=== PATIENT | female | born 1980 | race Caucasian/White ===

== ENCOUNTER 2017-01-08 17:23 | Emergency (ER) | payer OTHER ==
[~2017-01-08] VITALS: Ht 149.9 cm; Wt 92.1 kg
[~2017-01-08 17:23] MED LIST: OMEP40CA PO
[2017-01-08 17:26] VITALS: TEMP 37; Ht 149.9 cm; Wt 92.1 kg
[2017-01-08 17:31] VITALS: O2SAT 95
[2017-01-08 18:00] LABS: BASO % 0.3 %; BASO ABS # 0.03 K/uL (0-0.2); COMPLETE YES; EOS % 0.9 %; IG% 0.3 %; LYMPH % 42.3 %; LYMPH ABS # 4.83 K/uL (1.2-3.4); MEAN CELL VOLUME 90.4 fL (80-100); MEAN CORPUSCULAR HEMOGLOBIN 30.2 pg (25-34); MEAN CORPUSCULAR HGB CONC 33.4 g/dl (32-36); MEAN PLATELET VOLUME 9.5 fL (7.4-10.4); MONO % 7.3 %; NEUT % 48.9 %; PLATELET COUNT 319 K/uL (130-400); WHITE BLOOD COUNT 11.43 K/uL (4.8-10.8)
[2017-01-08 18:03] LABS: CALCIUM 9.3 mg/dl (8.5-10.1)
[2017-01-08 18:07] LABS: BUN/CREATININE RATIO 11.6 (10-20); CREATININE 0.83 mg/dl (0.60-1.20); POTASSIUM 3.5 mmol/L (3.5-5.1)
--- NOTE | 2017-01-08 18:18 | DIAGNOSTIC IMAGING REPORT ---
TWO VIEW CHEST CLINICAL HISTORY: Atypical chest pain.. FINDINGS: PA and lateral chest radiographs are compared to chest x-ray and chest CT dated 09/10/2013. The cardiomediastinal silhouette is unremarkable. There is mild chronic elevation of the right hemidiaphragm. The lungs and pleural spaces are clear. There is no pneumothorax. The bony thorax appears intact. Surgical clips are noted in the upper abdomen on the lateral view. IMPRESSION: No active disease in the chest. Electronically signed by: Mumtaz Whitmore M.D. 01/08/2017 6:17 PM Dictated Date/Time: 01/08/2017 6:16 PM
--- NOTE | 2017-01-08 18:42 | EMERGENCY ROOM VISIT NOTE ---
History First contact with patient: 17:36 Chief Complaint: CHEST PAIN Stated Complaint: CHEST PAIN,NUMBNESS IN ARM,HEAD PRESSURE Nursing Triage Summary: Pt states pain in substernal chest and into right arm. Lightheaded. Flushed. "Hearing is fading in and out. I felt like I was getting electrocuted." Denies sob. Abnormal EKG when had the flu. Pt reports open wound to left breast. History of Present Illness The patient is a 37 year old female who presents to the Emergency Room with complaints of chest pressure. She states that she has had substernal chest pressure since 12pm this afternoon, it is intermittent and over the last 6 hours has had 4 episodes lasting approximately 1 minute. She also has had a headache with head pressure for the last 2 days. She also has had a chronic shooting pain like being electrocuted over her right shoulder that has been going on for the last 4 months. She is also having nausea and lightheadedness since the chest pressure began. She denies any fever, chills, nausea or vomiting. She is currently a 1 PPD smoker. Review of Systems See HPI for pertinent positives and negatives. A total of ten systems were reviewed and were otherwise negative. Past Medical/Surgical History Medical Problems: (1) Bronchitis (2) Gestational diabetes (3) History of orthopedic surgery (4) History of UTI (5) HTN (hypertension) (6) PCOS (polycystic ovarian syndrome) (7) Pneumonia (8) [place] Teeth Removal Family History Cancer Diabetes Gallbladder disease Heart disease Kidney disease/stones Lung disease Social History Smoking Status: Current Every Day Smoker Drug Use: none Marital Status: single Occupation Status: employed Current/Historical Medications No Active Prescriptions or Reported Meds Allergies Coded Allergies: No Known Allergies (Verified , `, 01/08/17) Physical Exam Vital Signs Date Time Temp Pulse Resp B/P Pulse Ox O2 Delivery O2 Flow Rate FiO2 01/08/17 18:17 101 18 123/77 95 Room Air 01/08/17 17:41 106 01/08/17 17:31 95 Room Air 01/08/17 17:26 37.0 108 20 147/78 97 Room Air Physical Exam GENERAL: Awake, alert, well-appearing, in mild distress HENT: Normocephalic, atraumatic. Oropharynx unremarkable. EYES: Normal conjunctiva. Sclera non-icteric. NECK: Supple. No nuchal rigidity. RESPIRATORY: Clear to auscultation. Good inspiratory effort CARDIAC: Regular rate, normal rhythm. Extremities warm and well perfused. Pulses equal. ABDOMEN: Soft, non-distended. No tenderness to palpation. No rebound or guarding. No masses. RECTAL: Deferred. BREAST: Left breast has ulceration over left lower quadrant MUSCULOSKELETAL: Chest examination reveals no tenderness. The back is symmetrical on inspection without obvious abnormality. There is no CVA tenderness to palpation. No joint edema. LOWER EXTREMITIES: Calves are equal size bilaterally and non-tender. No edema. No discoloration. NEURO: Normal sensorium. No sensory or motor deficits noted. SKIN: No rash or jaundice noted. Medical Decision & Procedures Laboratory Results 01/08/17 17:35 Red Blood Count 5.20, Mean Corpuscular Volume 90.4, Mean Corpuscular Hemoglobin 30.2, Mean Corpuscular Hemoglobin Concent 33.4, Mean Platelet Volume 9.5, Neutrophils (%) (Auto) 48.9, Lymphocytes (%) (Auto) 42.3, Monocytes (%) (Auto) 7.3, Eosinophils (%) (Auto) 0.9, Basophils (%) (Auto) 0.3, Neutrophils # (Auto) 5.61, Lymphocytes # (Auto) 4.83, Monocytes # (Auto) 0.83, Eosinophils # (Auto) 0.10, Basophils # (Auto) 0.03 01/08/17 17:35 Test 01/08/17 17:35 01/08/17 17:57 White Blood Count 11.43 K/uL (4.8-10.8) Red Blood Count 5.20 M/uL (4.2-5.4) Hemoglobin 15.7 g/dL (12.0-16.0) Hematocrit 47.0 % (37-47) Mean Corpuscular Volume 90.4 fL (80-100) Mean Corpuscular Hemoglobin 30.2 pg (25-34) Mean Corpuscular Hemoglobin Concent 33.4 g/dl (32-36) Platelet Count 319 K/uL (130-400) Mean Platelet Volume 9.5 fL (7.4-10.4) Neutrophils (%) (Auto) 48.9 % Lymphocytes (%) (Auto) 42.3 % Monocytes (%) (Auto) 7.3 % Eosinophils (%) (Auto) 0.9 % Basophils (%) (Auto) 0.3 % Neutrophils # (Auto) 5.61 K/uL (1.4-6.5) Lymphocytes # (Auto) 4.83 K/uL (1.2-3.4) Monocytes # (Auto) 0.83 K/uL (0.11-0.59) Eosinophils # (Auto) 0.10 K/uL (0-0.5) Basophils # (Auto) 0.03 K/uL (0-0.2) RDW Standard Deviation 43.6 fL (36.4-46.3) RDW Coefficient of Variation 13.2 % (11.5-14.5) Immature Granulocyte % (Auto) 0.3 % Immature Granulocyte # (Auto) 0.03 K/uL (0.00-0.02) Anion Gap 7.0 mmol/L (3-11) Est Creatinine Clear Calc Drug Dose 92.0 ml/min Estimated GFR () 104.4 Estimated GFR (Non- 90.1 BUN/Creatinine Ratio 11.6 (10-20) Calcium Level 9.3 mg/dl (8.5-10.1) Total Bilirubin 0.2 mg/dl (0.2-1) Aspartate Amino Transf (AST/SGOT) 20 U/L (15-37) Alanine Aminotransferase (ALT/SGPT) 37 U/L (12-78) Alkaline Phosphatase 76 U/L (45-117) Total Protein 7.7 gm/dl (6.4-8.2) Albumin 3.9 gm/dl (3.4-5.0) Globulin 3.8 gm/dl (2.5-4.0) Albumin/Globulin Ratio 1.0 (0.9-2) Lipase 165 U/L (73-393) Bedside D-Dimer > 450 ng/mlFEU (0-450) Bedside Troponin I 0.000 ng/ml (0-0.045) Medical Decision Etiologies such as cardiac ischemia, aortic dissection, pulmonary embolism, pneumonia, pneumothorax, musculoskeletal, infections, gastrointestinal, as well as others were entertained. Initially ordered EKG, Chest Xray, CBC, CMP, Lipase, Troponin, D-Dimer - D-Dimer came back elevated to patient sent for CTA of the Chest looking for PE ' - Patient states that she does have a family history of clots and both of her parents are on blood thinners - CTA for PE was negative - Patient states that pain is resolved and would like to go home - Discussed possible etiologies of her pain and for her to return to the ED if her pain gets worse or any other concerning symptoms arise Impression Primary Impression: Non-cardiac chest pain Departure Information Dispostion Home / Self-Care Condition GOOD Prescriptions No Active Prescriptions or Reported Meds Referrals No Doctor, Assigned (PCP) Patient Instructions My [facility]
[2017-01-08] MEDS ORDERED: OPTIRAY 320 IV PRN (19:15)
--- NOTE | 2017-01-08 19:17 | DIAGNOSTIC IMAGING REPORT ---
CT ANGIOGRAM OF THE CHEST CLINICAL HISTORY: Atypical chest pain. COMPARISON STUDY: Chest x-ray dated 01/08/2017. Chest CT dated 09/10/2013. TECHNIQUE: Following the IV administration of 94 cc of Optiray 320, CT angiogram of the chest was performed from the upper abdomen to the thoracic inlet utilizing the pulmonary embolus protocol. Images are reviewed in the axial, sagittal, and coronal planes. 3-D MIPS images are created and assessed. IV contrast was administered without complication. CT DOSE: 578.45 mGy.cm FINDINGS: Thyroid: Imaged portions of the thyroid gland are normal in size and attenuation. Thoracic aorta: The thoracic aorta is normal in caliber and demonstrates standard 3-vessel arch anatomy. No dissection is seen. Pulmonary vasculature: The pulmonary trunk is normal in caliber. There are no filling defects identified in main, lobar, or segmental pulmonary branches to suggest pulmonary embolus. Heart: The heart is normal in size and configuration, and without pericardial effusion. Lungs and pleural spaces: Evaluation of the lung parenchyma is degraded by respiratory motion artifact. There is no airspace consolidation or pleural effusion. Dependent atelectasis is observed. A 5 mm pulmonary nodule at the left lung base seen on image #52 is unchanged from 2014 and of doubtful significance. The trachea and central airways are clear. Mediastinum: There is no mediastinal lymphadenopathy. Emelina: Clear. Axillae: There is no axillary lymphadenopathy. Upper abdomen: There is evidence of hepatic steatosis. Cholecystectomy clips are noted. There is a small hiatal hernia. Skeletal structures: No lytic or blastic bony lesions are seen. IMPRESSION: 1. There is no evidence of pulmonary embolus in the main, lobar, or segmental pulmonary arteries. 2. There is no airspace consolidation or pleural effusion. 3. Hepatic steatosis. Electronically signed by: Mumtaz Whitmore M.D. 01/08/2017 7:15 PM Dictated Date/Time: 01/08/2017 7:11 PM
--- NOTE | 2017-01-08 20:15 | EMERGENCY ROOM VISIT NOTE ---
ED Visit Note First contact with patient: 17:29 Patient seen and examined at bedside after the resident. Discussed all labs and imaging which were reassuring. Patient stated this pain was improved. Patient states she has had episodes similar to this in the past. Discussed possible etiology and close follow-up with family doctor. Discussed the symptoms persist may need additional radiology evaluation also. Patient well- appearing here with stable vital signs and no apparent distress. Patient comfortable with plan for discharge. Discussed symptoms to watch and return for , she verbalized understanding.
[2017-01-08 20:20] VITALS: BP 116/70; PULSE 90; O2SAT 95
[2017-04-02] MEDS ORDERED: VARE1PAK15 PO (15:34)
[2017-04-02] MEDS ORDERED: DULO-24 PO (15:34)
[2017-04-02] MEDS ORDERED: MELO7.5T5 PO (15:34)
[2017-04-02] MEDS ORDERED: LEVOIUD (15:38)
[2017-07-03] MEDS ORDERED: VNTHFA/IN INH (16:30)
[2017-07-03] MEDS ORDERED: METH4PAK PO (16:30)
[2017-07-05] MEDS ORDERED: PRED-301 PO ×2 (12:02)
[2017-07-05] MEDS ORDERED: PRED20TA PO (13:39)
[2017-07-05] MEDS ORDERED: LEVO-366 PO (13:39)
== END 2017-01-08 20:23 | disposition home or self-care (01) ==
LOC: C.EDB 17:24 → C.EDA 20:23
DX: R07.89 Other chest pain (principal); R51 Headache; I10 Essential (primary) hypertension; Z87.01 Personal history of pneumonia (recurrent); Z87.09 Personal history of other diseases of the respiratory system; Z87.42 Personal history of other diseases of the female genital tract; Z87.440 Personal history of urinary (tract) infections; Z82.49 Family history of ischemic heart disease and other diseases of the circulatory system; Z83.3 Family history of diabetes mellitus; Z83.6 Family history of other diseases of the respiratory system; Z83.79 Family history of other diseases of the digestive system; Z84.1 Family history of disorders of kidney and ureter; F17.200 Nicotine dependence, unspecified, uncomplicated

== ENCOUNTER → 2017-01-31 | Outpatient (CLI) | payer OTHER ==
[~2017-01-31] MED LIST changes: +DULO-24 PO; +LEVO-366 PO; +LEVOIUD; +MELO7.5T5 PO; +METH4PAK PO; -OMEP40CA PO; +PRED-301 PO; +PRED20TA PO; +VARE1PAK15 PO; +VNTHFA/IN INH
--- NOTE | 2017-01-31 14:09 | DIAGNOSTIC IMAGING REPORT ---
RIGHT WRIST MIN 3 VIEWS ROUTINE CLINICAL HISTORY: Right wrist pain. COMPARISON: None. DISCUSSION: No acute fractures or dislocations are visualized. There is a tiny bony/calcific density adjacent the radial styloid. This is felt to be old. There are no erosive or destructive changes. IMPRESSION: 1. No acute fractures 2. No erosive or destructive changes. Electronically signed by: Daquan Burden M.D. 01/31/2017 2:08 PM Dictated Date/Time: 01/31/2017 2:07 PM
== END | disposition home or self-care (01) ==
LOC: C.RDSM 13:15
PROVIDERS: ATTEND Physician Assistant
DX: M25.531 Pain in right wrist (principal)

== ENCOUNTER → 2017-04-17 | Day surgery (SDC) | payer OTHER ==
[2017-04-02 15:35] VITALS: Ht 149.9 cm; Wt 86.4 kg
[~2017-04-17] VITALS: Ht 149.9 cm; Wt 86.4 kg
[~2017-04-17] MED LIST changes: +ATROPINE SULFATE 0.1 MG/ML 5ML SYR IV PRN; +BUPIVACAINE 0.5 % 5 MG/1 ML PF 10ML VIAL ONE; +CEFAZOLIN 2000 MG/60 ML D5W IV SCH; +EpHEDrine SULFATE INJ 50 MG/ML AMP IV PRN; +FENTANYL CITRATE INJ 50 MCG/1 ML 2 ML VIAL ONE; +LACTATED RINGER'S 1000ML 1,000 ML IV SCH; -LEVO-366 PO; +LIDOCAINE HCL 2% 2 ML VIAL (20MG/ML) ONE; +LIDOCAINE HCL 2% LOCAL 20 ML VIAL ONE; -METH4PAK PO; +MIDAZOLAM HCL 1 MG/ML 2ML VIAL ONE; +ONDANSETRON INJ 2 MG/ML 2 ML VIAL IV PRN; -PRED-301 PO; -PRED20TA PO; +PROPOFOL IV EMULSION 10 MG/ML 20 ML VIAL IV ONE; +SODIUM CHLORIDE 0.9% 1000ML 1,000 ML IV SCH; -VNTHFA/IN INH
--- NOTE | 2017-04-17 06:36 | History & Physical Bridge Note ---
H&P Re-Evaluation Bridge Note: I have examined the patient, reviewed the History & Physical and in the interval since the performance of the History & Physical I have noted the following changes of clinical significance: consent obtained.No changes noted
--- NOTE | 2017-04-17 06:38 | Discharge Instructions ---
Discharge Instructions Date of Service Apr 17, 2017. Visit Reason for Visit: Right Carpal Tunnel Syndrome Discharge Discharge Diagnosis / Problem: same Discharge Goals Goal(s): Decrease discomfort, Improve function Medications Stopped Medications Name(s): na Restart Stopped Medication(s): use all scripts as directed Activity Recommendations Activity Limitations: as noted below Lifting Limitations: until after follow-up appointment Exercise/Sports Limitations: until after follow-up appointment May Resume Sexual Activity: when tolerated Shower/Bathe: keep incision dry Driving or Machine Use: resume 1 day after discharge Anesthesia . Post Anesthesia Instructions: If you have had General Anesthesia or IV Sedation: * Do not drive today. * Resume driving when surgeon permits. * Do not make important decisions or sign legal documents today. * Call surgeon for: 1. Temperature elevations greater than 101 degrees F. 2. Uncontrollable pain. 3. Excessive bleeding. 4. Persistent nausea and vomiting. 5. Medication intolerance (nausea, vomiting or rash). * For nausea and vomiting use only clear liquids such as: tea, soda, bouillon until nausea subsides, then gradually increase diet as tolerated. * If you have any concerns or questions, call your surgeon's office. If physician is unavailable and it is an emergency, call 911 or go to the nearest emergency room. . Instructions / Follow-Up Instructions / Follow-Up The following are instructions to follow after minor hand surgery. ACTIVITY RECOMMENDATIONS: * Minimize activity until your first visit after surgery. * No excessive walking, jogging, sports or laboring. * Return to activity is individualized. Most patients are able to return to everyday activities within 2 weeks. * Return to sports or intensive labor usually occurs at 1-2 months. * DRIVING: Driving may be resumed when you feel you have adequate pain control and use of the hand. * BATHING: You may shower or sponge-bathe immediately after surgery. The dressing will need to be covered with a plastic bag or plastic wrap until the dressing is changed on the fourth or fifth day after surgery. Once the dressing has been changed on the fourth or fifth day after surgery, you may shower and get the incision wet. * Wash with regular soap and water. * Do not bathe (submerge the incision), soak, swim or use a hot tub until the incision is completely healed over with normal skin and the doctor has given the OK to proceed. * There is no need to apply any ointments, powders or salves to your incision. * Do not apply alcohol or hydrogen peroxide directly to the incision. Diluted peroxide (50:50 mixture with sterile saline) may be used to clean dried blood from around the incision area. WORK/SCHOOL: * You may return to sedentary work or school when you are feeling comfortable. This is usually 3-7 days after surgery. * Expect increased discomfort with increased activity. Continue to elevate and ice the hand as much as possible. DIET: * Resume previous diet. MEDICATIONS: * You will have a prescription for pain medication and an anti-inflammatory medication after surgery. Use the pain pills for severe pain and the anti-inflammatory for less severe pain. * Once the pain pills have run out, try to use the anti-inflammatory. If this is not effective then contact the office for assistance. * The pain medication may cause nausea, constipation and sleepiness. You should see how they affect you before driving or similar activity. * The anti-inflammatory may cause stomach upset and bleeding. If this occurs, let your doctor know immediately . * Some patients may need blood clot prevention. This can be done with either a pill or a simple shot. Your doctor will advise you on when to begin these medications and how to take them. * Do not take aspirin or other anti-inflammatory products (i.e. Advil or Aleve ) if taking blood thinner medication. * Take a stool softener like Colace or a stimulant like Senokot to prevent constipation. SPECIAL CARE INSTRUCTIONS: ICE: * Do not apply ice directly to the skin. * Use a thin dressing or stockinet between the skin and ice bag. The dressing in place after surgery will suffice. * Apply ice for 20-30 minutes and repeat every 2-4 hours. This is especially important for the first 3-7 days after surgery. * Once the pain improves, use ice as needed. ELEVATION: * Keep your hand elevated at or above the level of your heart as much as possible. * Expect some increased discomfort and swelling if you allow your hand to hang down for any length of time. DRESSING: * Your dressing will be changed 4-5 days after surgery by the physical therapist or physician's assistant front end manager. Leave your dressing intact until this time. * You may then change your dressing daily with clean dry gauze or Band-aids and a soft wrap or stockinet. * Always wash your hands prior to touching the incision area. * Once the stitches are removed, you may leave the wound open to air or cover with a thin bandage. * There is no need to apply any ointments, powders or salves to your incision. * Expect some bloody drainage for the first few days after surgery. * Leave the tape strips in place (if present) for 5-7 days. * The initial dressing after surgery may become soaked with blood or fluid which is normal. You may reinforce your dressing with clean, dry gauze as needed. BRACE: * Bracing is generally not needed after routine hand surgery. THERAPY: * Physical therapy may be prescribed after your surgery. * For carpal tunnel and trigger digit surgery you may begin moving your fingers and wrist immediately after surgery as tolerated. * Be careful to not overuse. * Once the sutures are removed, further range of motion exercises can be performed. * Hand incisions may be very sensitive for a few months after surgery so avoid excessive pressure on the incision. If necessary, use a padded weightlifters' glove. * You may massage the incision with skin cream to make it less sensitive and reduce scarring. * Hand strength usually returns with normal use. * If needed, squeezing a soft sponge or Play-dough may help. * Your doctor will recommend physical therapy if necessary. PROBLEMS/QUESTIONS: * If you have any problems such as severe pain, numbness, tingling or high fevers or if you have any questions, please contact the office at [phone]. * It is not uncommon to have some numbness and tingling after the surgery especially if you have had a nerve block done. This should gradually improve over the first 1- 2 days. If this persists longer or worsens then contact the office. FOLLOW UP VISIT: * If not already scheduled, please call the office at to schedule follow-up appointments for approximately 10 days, 6 weeks and 3 months after surgery. Diet Recommendations Recommended Home Diet: resume previous diet Procedures Procedures Performed: right carpal tunnel release Pending Studies Studies pending at discharge: no Medical Emergencies . Who to Call and When: Medical Emergencies: If at any time you feel your situation is an emergency, please call 911 immediately. . Non-Emergent Contact Non-Emergency issues call your: Specialist Call Non-Emergent contact if: temperature is above 101.5 . . "Provider Documentation" section prepared by Umesh Morgan. .
--- NOTE | 2017-04-17 07:28 | [facility] Post Operative Brief Note ---
Immediate Operative Summary Operative Date Apr 17, 2017. Pre-Operative Diagnosis Right Carpal Tunnel Syndrome Post-Operative Diagnosis Same Procedure(s) Performed Right Carpal Tunnel Release Surgeon Dr. Morgan Deployment Engineer Surgeon(s) Iliana White PA-C Estimated Blood Loss Trace Findings severe compression Fluids (cc crystalloids) 750cc Specimens None Drains none Anesthesia local/sedation Complication(s) None Disposition Recovery Room / PACU
[2017-04-17 07:39] VITALS: TEMP 36.1
--- NOTE | 2017-04-17 07:54 | OPERATIVE REPORT ---
DATE OF OPERATION: 04/17/2017 SURGEON: Dr. Morgan. BLOCK MECHANIC: Deshaun White PA-C. No resident or fellow available. PREOPERATIVE DIAGNOSIS: Severe carpal tunnel syndrome, right upper extremity. POSTOPERATIVE DIAGNOSIS: Same. OPERATION PERFORMED: Right carpal tunnel release. PERIOPERATIVE SITUATION: A 37-year-old female with intractable carpal tunnel complaints. Has severe numbness and tingling continuously in the median nerve distribution of her right hand. She has failed conservative management and wants to proceed with surgical treatment. Options discussed. She understands the risks and consequences based on the consent. OPERATION: The patient appropriately identified, site verified, consent verified, 2 grams of Ancef confirmed as being given. The right upper extremity was anesthetized with 5 mL of 0.25% Marcaine plain and 5 mL of 2% plain lidocaine. The arm was then prepped and draped in usual routine fashion. Tourniquet inflated to 250 mmHg after exsanguination of limb with a rubber Esmarch bandage for a total of 15 minutes. A curvilinear incision was made based on the fourth ray. Blunt dissection carried down to the palmar fascia. The hand was quite thick and edematous. Tedious dissection performed. The transverse carpal ligament then identified and released from the superficial palmar arch to approximately 0.5 cm proximal hook of the hamate. The nerve became quite hyperemic upon decompression. Floor of the carpal canal had no masses. The motor takeoff branch was identified but not explored. The FPL was identified but not explored. The wound was then irrigated and closed with horizontal and simple mattress 3-0 nylon sutures, dressed with Dermabond, Xeroform, a 3-inch volar fiberglass splint, wide Ron bandage. The patient was transferred to the holding area in satisfactory condition, having tolerated the procedure well. ESTIMATED BLOOD LOSS: Trace. CRYSTALLOID: 750 mL No DVT prophylaxis required. I attest to the content of the Intraoperative Record and any orders documented therein. Any exception s are noted below.
[2017-04-17 07:59] VITALS: BP 112/78; PULSE 67; O2SAT 96
--- NOTE | 2017-04-17 08:10 | Anesthesia Progress Nt - [facility] ---
Anesthesia Post Op Note Date & Time Apr 17, 2017 at 08:10 Vital Signs Pain Intensity: 0 Vital Signs Past 12 Hours Date Time Temp Pulse Resp B/P (MAP) Pulse Ox O2 Delivery O2 Flow Rate FiO2 04/17/17 07:59 67 16 112/78 (89) 96 Room Air 04/17/17 07:39 36.1 81 16 111/75 (87) 94 Room Air 04/17/17 06:34 37.0 88 16 120/83 (95) 95 Room Air Notes Mental Status: alert / awake / arousable, participated in evaluation Pt Amnestic to Procedure: Yes Nausea / Vomiting: adequately controlled Pain: adequately controlled Airway Patency, RR, SpO2: stable & adequate BP & HR: stable & adequate Hydration State: stable & adequate Anesthetic Complications: no major complications apparent
--- NOTE | 2017-04-17 13:09 | [facility] Operative Report ---
Operative Report Operative Date Apr 17, 2017. Pre-Operative Diagnosis Right Carpal Tunnel Syndrome Post-Operative Diagnosis Right wrist Same Procedure(s) Performed Right wrist Carpal Tunnel Release Surgeon Dr. Morgan Flow Nurse Surgeon(s) Iliana White PA-C Estimated Blood Loss Trace Findings Carpal tunnel syndrome Fluids (cc crystalloids) 750cc Specimens None Drains none Complication(s) None Disposition phase II recovery Indications This 37-year-old white female presented the office with complaints of right hand numbness and tingling. It was worse with activity. EMG had been obtained. She elected to proceed with surgical intervention after being educated about potential risks and outcomes. Description of Procedure Patient was taken to the operating room where she was given local anesthetic and sedation. She was prepped and draped in usual sterile fashion. Please see Dr. Morgan's operative report for specifics of the procedure. I was present for the entire case from initial patient positioning through final wound closure. Assistance was provided in tissue traction, hemostasis, final wound closure, and splinting. Patient was taken to phase 2 recovery in satisfactory condition. I attest to the content of the Intraoperative Record and any orders documented therein. Any exceptions are noted below.
== END | disposition home or self-care (01) ==
LOC: X.SURG 06:08
PROVIDERS: ATTEND Physical Medicine & Rehabilitation Sports Medicine
DX: G56.01 Carpal tunnel syndrome, right upper limb (principal); K21.9 Gastro-esophageal reflux disease without esophagitis

== ENCOUNTER → 2017-08-21 | Outpatient (CLI) | payer OTHER ==
[~2017-08-21] MED LIST changes: -ATROPINE SULFATE 0.1 MG/ML 5ML SYR IV PRN; -BUPIVACAINE 0.5 % 5 MG/1 ML PF 10ML VIAL ONE; -CEFAZOLIN 2000 MG/60 ML D5W IV SCH; -EpHEDrine SULFATE INJ 50 MG/ML AMP IV PRN; -FENTANYL CITRATE INJ 50 MCG/1 ML 2 ML VIAL ONE; -LACTATED RINGER'S 1000ML 1,000 ML IV SCH; -LIDOCAINE HCL 2% 2 ML VIAL (20MG/ML) ONE; -LIDOCAINE HCL 2% LOCAL 20 ML VIAL ONE; -MIDAZOLAM HCL 1 MG/ML 2ML VIAL ONE; -ONDANSETRON INJ 2 MG/ML 2 ML VIAL IV PRN; +PERFLUTREN LIPID MICROSPHERE (DEFINITY) IV ONE; +PRED-301 PO; +PRED20TA PO; -PROPOFOL IV EMULSION 10 MG/ML 20 ML VIAL IV ONE; -SODIUM CHLORIDE 0.9% 1000ML 1,000 ML IV SCH; +VNTHFA/IN INH
--- NOTE | 2017-08-21 14:36 | EXERCISE STRESS ECHO ---
*NOTICE TO RECEIVING DEMOCRAT AGENCY This information is strictly Confidential and protected under [place] law. [place] law prohibits you from making any further disclosure of this information unless further disclosure is expressly permitted by the written consent of the person to whom it pertains or is authorized by law. A general authorization for the release of medical or other information is not sufficient for this purpose. Hospital accepts no responsibility if the information is made available to any other person, INCLUDING THE PATIENT. Interpretation Summary * Name: TAMIE GRANT Study Date: 08/21/2017 09:58 AM BP: 106/74 mmHg * Patient Location: [facility] HR: 86 * : 1980 (M/d/yyyy) Gender: Female Height: 59 in * Age: 37 yrs Ethnicity: CA Weight: 199 lb * Ordering Physician: Roshan Escobar * Referring Physician: Roshan Escobar * Performed By: Bren Tuttle RDCS * * Reason For Study: Chest pain, shortness of breath * BSA: 1.8 m2 * STRESS STUDY: Normal exercise stress echocardiogram. No echocardiographic or ECG evidence of myocardial ischemia having achieved heart rate adequate for diagnostic purposes. * -- Conclusions -- * STRESS STUDY: Normal exercise stress echocardiogram. No echocardiographic or ECG evidence of myocardial ischemia having achieved heart rate adequate for diagnostic purposes. Procedure Details * ECHOEX, CPT #36007 * ECHO DOPPLER, CPT #50896 * ECHO COLOR FLOW, CPT #39754 * A contrast injection of Definity was performed to improve assessment of LV function. * Contrast was injected into an intravenous site in the left arm. * One vial of Definity ultrasound contrast was diluted in normal saline to a total volume of 10 ml. A total of '2' ml of solution was administered during imaging. * Lot # [id number] of Definity utilized for procedure. * Expiration date OCT 15. * The attending nurse who injected the contrast agent was Ava Jordan RN. Left Ventricle * The left ventricle is normal in size. * Ejection Fraction = 55-60%. * Left ventricular systolic function is normal. * The left ventricular wall motion is normal. Right Ventricle * The right ventricle is normal size. * The right ventricular systolic function is normal. Atria * The left atrial size is normal. * Right atrial size is normal. * The interatrial septum is intact with no evidence for an atrial septal defect. Mitral Valve * The mitral valve is normal in structure and function. Tricuspid Valve * The tricuspid valve is normal in structure and function. Aortic Valve * The aortic valve is normal in structure and function. Pulmonic Valve * The pulmonic valve is not well seen, but is grossly normal. Great Vessels * The aortic root and proximal ascending aorta are normal sized. Pericardium * There is no pericardial effusion. Stress Parameters * Normal baseline electrocardiogram. * The stress ECG response was normal * Stress ECG: No ST changes. No arrhythmias. * The stress portion of this study was personally supervised by the undersigned interpreting physician. * Rest heart rate was '95' BPM. * Rest blood pressure was '106/74' * Maximum heart rate achieved was 160 bpm. * Maximum heart rate was 87 % of maximum age-predicted heart rate. * Maximum blood pressure was '170/74' * Total exercise time was '7:26' * Maximum exercise MET level achieved was '9.10' METS * Maximum treadmill speed was '3.40' miles per hour. * Maximum treadmill elevation was '14.00'% grade. * Exercise was terminated due to 'achieving target heart rate' MMode 2D Measurements and Calculations IVSd 0.78 cm LVIDd 5.1 cm LVIDs 3.6 cm LVPWd 0.84 cm IVS/LVPW 0.93 FS 30.2 % EDV(Teich) 125.9 ml ESV(Teich) 53.9 ml EF(Teich) 57.2 % EDV(cubed) 135.5 ml ESV(cubed) 46.1 ml EF(cubed) 66.0 % LV mass(C)d 144.9 grams LV mass(C)dI 78.7 grams/m\S\2 SV(Teich) 72.0 ml SI(Teich) 39.1 ml/m\S\2 SV(cubed) 89.4 ml SI(cubed) 48.6 ml/m\S\2 Ao root diam 2.8 cm Ao root area 6.1 cm\S\2 ACS 1.8 cm LA dimension 3.4 cm asc Aorta Diam 2.3 cm LA/Ao 1.2 LVOT diam 2.0 cm LVOT area 3.1 cm\S\2 LVAd ap4 32.4 cm\S\2 LVLd ap4 8.0 cm EDV(MOD-sp4) 109.6 ml EDV(sp4-el) 112.0 ml LVAs ap4 18.0 cm\S\2 LVLs ap4 6.4 cm ESV(MOD-sp4) 43.8 ml ESV(sp4-el) 42.9 ml EF(MOD-sp4) 60.0 % EF(sp4-el) 61.7 % LVAd ap2 27.5 cm\S\2 LVLd ap2 7.6 cm EDV(MOD-sp2) 83.9 ml EDV(sp2-el) 84.6 ml LVAs ap2 16.5 cm\S\2 LVLs ap2 6.7 cm ESV(MOD-sp2) 33.9 ml ESV(sp2-el) 34.2 ml EF(MOD-sp2) 59.5 % EF(sp2-el) 59.6 % LVLd %diff -4.90 % EDV(MOD-bp) 99.3 ml LVLs %diff 5.2 % ESV(MOD-bp) 39.1 ml EF(MOD-bp) 60.6 % SV(MOD-sp4) 65.7 ml SI(MOD-sp4) 35.7 ml/m\S\2 SV(MOD-sp2) 49.9 ml SI(MOD-sp2) 27.1 ml/m\S\2 SV(MOD-bp) 60.2 ml SI(MOD-bp) 32.7 ml/m\S\2 SV(sp4-el) 69.1 ml SI(sp4-el) 37.6 ml/m\S\2 SV(sp2-el) 50.4 ml SI(sp2-el) 27.4 ml/m\S\2 Doppler Measurements and Calculations MV E max quinn 65.0 cm/sec MV A max quinn 55.0 cm/sec MV E/A 1.2 MV dec time 0.21 sec Ao V2 max 120.8 cm/sec Ao max PG 5.8 mmHg Ao max PG (full) 2.6 mmHg JOHN(V,A) 2.3 cm\S\2 JOHN(V,D) 2.3 cm\S\2 LV V1 max PG 3.2 mmHg LV V1 max 89.3 cm/sec PA V2 max 79.4 cm/sec PA max PG 2.5 mmHg PA acc slope 396.7 cm/sec\S\2 PA acc time 0.15 sec TR max quinn 122.5 cm/sec PA pr(Accel) 12.3 mmHg
== END | disposition home or self-care (01) ==
LOC: C.CPL 09:48
PROVIDERS: ATTEND Family Medicine
DX: R07.9 Chest pain, unspecified (principal); R06.02 Shortness of breath

== ENCOUNTER → 2017-10-09 | Outpatient (CLI) | payer OTHER ==
[~2017-10-09] MED LIST changes: +LEVO1IUD2; -LEVOIUD; -PERFLUTREN LIPID MICROSPHERE (DEFINITY) IV ONE
== END | disposition home or self-care (01) ==
LOC: C.PAPS 09:15
PROVIDERS: ATTEND Obstetrics & Gynecology
DX: Z01.419 Encounter for gynecological examination (general) (routine) without abnormal findings (principal)

== ENCOUNTER → 2018-01-01 | Outpatient (CLI) | payer OTHER | END | disposition home or self-care (01) | LOC: C.LABSPEC 17:33 | PROVIDERS: ATTEND Dermatology | DX: L02.92 Furuncle, unspecified (principal) ==

== ENCOUNTER 2021-01-20 20:53 | Observation (INO) ==
[2021-01-20] MEDS ORDERED: ONDANSETRON INJ 2 MG/ML 2 ML VIAL ONE (21:34)
[2021-01-20] MEDS ORDERED: SODIUM CHLORIDE 0.9% 1000ML 1,000 ML IV ONE (21:38)
[2021-01-20] MEDS ORDERED: FAMOTIDINE 20MG/5ML IV PUSH IV STA (21:40)
--- NOTE | 2021-01-20 21:54 | Emergency Department Note ---
History of Present Illness General Chief complaint: Chest Pain Stated complaint: CHEST PAINS Time Seen by Provider: 01/20/21 21:14 Source: patient Mode of arrival: ambulatory Limitations: no limitations History of Present Illness Provider complaint: Nausea, vomiting, diarrhea Onset (ago): hour(s) Location: abdomen Radiation: non-radiation Severity: moderate Pain Consistency: + colicky Maximum Pain Intensity: 4 Relieved By: + none Exacerbated By: + eating Associated symptoms: + fever/chills, + loss of appetite, + malaise and + nausea/vomiting Treatments prior to arrival: none This is a 41-year-old female who presents due to concern for nausea, vomiting, diarrhea, and abdominal pain. Patient states symptoms began earlier today after she came to work. Patient states 2 days ago she had a migraine which she does have a history of and felt normal. No other recent illness, no medication changes, no known sick contact. 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 She has been vaccinated against coronavirus. Patient has had prior abdominal surgeries. Patient states the emesis and stools have not had any obvious blood. Emesis has been mostly green. Patient does not have her gallbladder. Patient with generalized abdominal pain, no focal areas, also states some pain coming up under the left breast when she began getting nauseated and vomiting. She has had chills, no measurable fever. Didn't take her evening medications including metformin due to vomiting. Patient states symptoms really began approximately 2 hours after eating soup from the cafeteria. She does not know if anyone else had it or other people were sick. Pt seen during a time of high acuity and national emergency pandemic while wearing PPE. Home Medications Medication Instructions Recorded Confirmed Type meloxicam [Mobic] 7.5 mg PO DAILY PRN 07/29/18 01/20/21 History clindamycin phosphate 1 appln TOP DAILY PRN 12/23/19 01/20/21 History levothyroxine 25 mcg PO QAM 05/06/20 01/20/21 History Januvia 100 mg PO QDL 05/30/20 01/20/21 History levonorgestrel-ethinyl estrad 1 tab PO QAM 05/30/20 01/20/21 History esomeprazole magnesium 20 mg PO BID 10/25/20 01/20/21 History metformin 1,000 mg PO BID #60 tab 10/26/20 01/20/21 Rx Allergies Allergy/AdvReac Type Severity Reaction Status Date / Time No Known Allergies Allergy Verified 01/20/21 21:53 Past Med/Surg History Medical History DM type 2 (diabetes mellitus, type 2) NIDDM Fatty liver GERD (gastroesophageal reflux disease) History of migraine Hypothyroidism IBS (irritable bowel syndrome) Osteoarthritis PCOS (polycystic ovarian syndrome) Surgical History History of colonoscopy History of incisional hernia repair (10/25/20) Laparoscopic incisional hernia repair. Dr. Mejia 10/25/20 History of laparoscopic cholecystectomy History of surgery tumor excision face 1982 History of surgical removal of ganglion cyst [place] teeth removed (06/12/13) Family History Mother Diabetes Heart disease Breast cancer Father Diabetes Heart disease Grandmother (Paternal) Breast cancer Other Family history non-contributory No family history of adverse response to anesthesia Social History Smoking Status: Former smoker Smoking End Date: 09/07/2016; Second Hand Exposure: Yes (as a child); Tobacco Cessation Education Requested by Patient: No Hx Alcohol Use: Yes Hx Substance Use: No Preferred Language: Mexican Communication Ability: Effective Senior Systems Architect Required: No Beliefs That Will Affect Care: None marital status: Current Living Situation: Spouse Current Living Situation Comment: and 2 children current occupational status: employed 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 and A total of 10 systems reviewed and were otherwise negative Physical Exam Vital Signs Vital Signs - 24 hr 01/20/21 21:09 01/20/21 21:24 01/20/21 21:26 Temperature 37 C Temperature Source Temporal Artery Scan Pulse Rate 123 H 109 H 111 H Pulse Rate from SpO2 Sensor 111 H Respiratory Rate 20 34 H 20 Blood Pressure 160/81 H 120/80 Blood Pressure Mean 107 93 Blood Pressure Position Sitting Pulse Oximetry 92 95 Oxygen Delivery Method Room Air Sepsis Recent Fever Within 48 Hours No Sepsis New/Unexplained Change in Mental Status No Sepsis Action Taken by Nursing No Action Required 01/20/21 21:30 01/20/21 22:00 01/20/21 22:01 Temperature Temperature Source Pulse Rate 113 H 106 H 106 H Pulse Rate from SpO2 Sensor 114 H 106 H Respiratory Rate 27 H 27 H 24 Blood Pressure 131/84 174/100 H Blood Pressure Mean 99 124 Blood Pressure Position Pulse Oximetry 96 98 Oxygen Delivery Method Sepsis Recent Fever Within 48 Hours Sepsis New/Unexplained Change in Mental Status Sepsis Action Taken by Nursing 01/20/21 22:30 01/20/21 22:47 01/20/21 23:00 Temperature Temperature Source Pulse Rate 110 H 101 H 99 H Pulse Rate from SpO2 Sensor 111 H 101 H 101 H Respiratory Rate 24 22 20 Blood Pressure 125/78 131/75 Blood Pressure Mean 93 93 Blood Pressure Position Pulse Oximetry 95 96 96 Oxygen Delivery Method Sepsis Recent Fever Within 48 Hours Sepsis New/Unexplained Change in Mental Status Sepsis Action Taken by Nursing 01/20/21 23:30 01/21/21 00:00 01/21/21 00:30 Temperature Temperature Source Pulse Rate 106 H Pulse Rate from SpO2 Sensor 100 H Respiratory Rate 22 Blood Pressure 131/74 109/73 Blood Pressure Mean 93 85 Blood Pressure Position Pulse Oximetry 94 Oxygen Delivery Method Sepsis Recent Fever Within 48 Hours Sepsis New/Unexplained Change in Mental Status Sepsis Action Taken by Nursing GENERAL: alert, ill appearing, well nourished, mild distress, non-toxic, holding emesis bag and began vomiting during my exam, bilious emesis noted, no gross blood EYE EXAM: normal conjunctiva, PERRL and EOM's grossly intact OROPHARYNX: no exudate, no erythema, lips, buccal mucosa, and tongue normal and mucous membranes are moist NECK: supple, no nuchal rigidity, no adenopathy, non-tender LUNGS: Clear to auscultation. Normal chest wall mechanics, no w/r/r HEART: no murmurs, S1 normal and S2 normal ABDOMEN: abdomen soft, non-tender, normo-active bowel sounds, no masses, no r ebound or guarding. BACK: Back is symmetrical on inspection and there is no deformity, no midline t enderness, no CVA tenderness. SKIN: no rashes and no bruising UPPER EXTREMITIES: upper extremities are grossly normal. FROM, nml pulses b/l. LOWER EXTREMITIES: No pitting edema. FROM, nml pulses b/l. NEURO EXAM: Normal sensorium, cranial nerves II-XII grossly intact, normal speech, no gross weakness of arms, no gross weakness of legs. Gross sensation intact. Course Course 2149: Patient states no dx of prolonged QT, however her daughters were just diagnosed with congenital prolonged QT. We discussed zofran for nausea we gave her which she states she has had previously, tele monitoring and checking EKG's as a precaution. 5: Patient states she is feeling slightly improved. Heart rate improved. Magnesium infusing. No recurrent vomiting or diarrhea. 0003: Patient still complaining of nausea and abdominal discomfort, no focal pain. Administered Medications Discontinued Medications Famotidine (Famotidine 20mg/5ml Iv Push) 20 mg IV ONE STA Stop: 01/20/21 21:41 Last Admin: 01/20/21 21:49 Dose: 20 mg Documented by: [id number] Sodium Chloride (Nss 1000ml) 1,000 mls @ 999 mls/hr IV .Q1H1M ONE Stop: 01/20/21 22:38 Last Infusion: 01/20/21 22:47 Dose: 0 mls/hr Documented by: [id number] Admin: 01/20/21 21:49 Dose: 999 mls/hr Documented by: [id number] Lactated Ringer's (Lr) 1,000 mls @ 999 mls/hr IV .Q1H1M ONE Stop: 01/20/21 23:31 Last Infusion: 01/20/21 23:45 Dose: 0 mls/hr Documented by: [id number] Admin: 01/20/21 22:44 Dose: 999 mls/hr Documented by: [id number] Magnesium Sulfate/Dextrose (Magnesium Sulfate / D5w) 1 gm in 100 mls @ 100 mls/hr IV Q1H BERNARDO Stop: 01/21/21 00:30 Last Infusion: 01/21/21 05:30 Dose: 0 mls/hr Documented by: [id number] Admin: 01/20/21 23:48 Dose: 100 mls/hr Documented by: [id number] Infusion: 01/20/21 23:44 Dose: 100 mls/hr Documented by: [id number] Admin: 01/20/21 22:44 Dose: 100 mls/hr Documented by: [id number] Lactated Ringer's (Lr) 1,000 mls @ 250 mls/hr IV .Q4H BERNARDO Stop: 02/19/21 23:29 Last Admin: 01/21/21 05:29 Dose: Not Given Documented by: [id number] Infusion: 01/21/21 05:29 Dose: 0 mls/hr Documented by: [id number] Admin: 01/20/21 23:48 Dose: 250 mls/hr Documented by: [id number] Acetaminophen (Ofirmev) 1,000 mg in 100 mls @ 400 mls/hr IV NOW STA Stop: 01/21/21 00:48 Last Infusion: 01/21/21 05:27 Dose: 0 mls/hr Documented by: [id number] Admin: 01/21/21 01:06 Dose: 400 mls/hr Documented by: [id number] Famotidine 20 mg/ Syringe 5 mls @ 2.5 mls/min IV BID BERNARDO Stop: 02/20/21 08:59 Last Admin: 01/21/21 09:12 Dose: 2.5 mls/min Documented by: [id number] Sodium Chloride (Nss 1000ml) 1,000 mls @ 150 mls/hr IV .Q6H40M BERNARDO Stop: 01/21/21 18:28 Last Admin: 01/21/21 05:58 Dose: 150 mls/hr Documented by: [id number] Insulin Aspart (Insulin Aspart 100 Units/Ml 3 Ml Pen) 0 units SC Q6 BERNARDO Stop: 02/20/21 06:14 Last Admin: 01/21/21 13:08 Dose: 2 units Documented by: [id number] Cosigned by: [id number] Admin: 01/21/21 06:18 Dose: 1 units Documented by: [id number] Cosigned by: [id number] Ioversol (Optiray 320 100ml) 100 ml IV ONCE ONE Stop: 01/20/21 23:59 Last Admin: 01/20/21 23:58 Dose: 83 ml Documented by: [id number] Levothyroxine Sodium (Levothyroxine Sodium 25 Mcg Tablet) 25 mcg PO DAILYBB [facility] Stop: 02/20/21 06:29 Last Admin: 01/21/21 05:58 Dose: 25 mcg Documented by: [id number] Metoclopramide HCl (Metoclopramide Hcl Inj 5 Mg/Ml 2 Ml Vial) 5 mg IV ONE ONE Stop: 01/21/21 00:33 Last Admin: 01/21/21 01:07 Dose: 5 mg Documented by: [id number] Ondansetron HCl (Ondansetron Inj 2 Mg/Ml 2 Ml Vial) Confirm Administered Dose 4 mg .ROUTE .STK-MED ONE Stop: 01/20/21 21:35 Last Admin: 01/21/21 05:27 Dose: Not Given Documented by: [id number] Medical Decision Making Differential Diagnosis Differential: Gastroenteritis, Food Borne, Esophageal Perforation, , Electrolyte Abnormality, Dehydration, Intraabdominal Infection, UTI/Pyelonephritis, Bowel Obstruction, Biliary Pathology, amongst other pathology entertained. Medical Records Attestation: I reviewed the patient's medical records. Home Medications Current Medication List: was personally reviewed by me Laboratory Data Attestation: I reviewed the patient's lab results. Result diagrams: 01/21/21 06:58 01/21/21 06:58 Lab Results 01/20/21 01/20/21 01/20/21 Range/Units 21:30 21:30 21:30 WBC 14.15 H (4.8-10.8) K/uL RBC 4.81 (4.2-5.4) M/uL Hgb 15.3 (12.0-16.0) g/dL Hct 44.5 (37-47) % MCV 92.5 (80-100) fL MCH 31.8 (25-34) pg MCHC 34.4 (32-36) g/dL RDW Std Deviation 43.8 (36.4-46.3) fL RDW Coeff of Ria 13.0 (11.5-14.5) % Plt Count 222 (130-400) K/uL MPV 10.5 H (7.4-10.4) fL Immature Gran % (Auto) 0.2 % Neut % (Auto) 76.4 % Lymph % (Auto) 18.0 % Johnson % (Auto) 4.8 % Eos % (Auto) 0.5 % Baso % (Auto) 0.1 % Neut # (Auto) 10.80 H (1.4-6.5) K/uL Lymph # (Auto) 2.55 (1.2-3.4) K/uL Johnson # (Auto) 0.68 H (0.11-0.59) K/uL Eos # (Auto) 0.07 (0-0.5) K/uL Baso # (Auto) 0.02 (0-0.2) K/uL Immature Gran # (Auto) 0.03 H (0.00-0.02) K/uL Sodium 135 L (136-145) mmol/L Potassium 4.0 (3.5-5.1) mmol/L Chloride 103 (98-107) mmol/L Carbon Dioxide 23 (21-32) mmol/L Anion Gap 9.0 (3-11) BUN 15 (7-18) mg/dl Creatinine 0.83 (0.6-1.2) mg/dl Est Cr Clr Drug Dosing 94.2 ml/min Est GFR ( Amer) 101.5 ml/min Est GFR (Non-Af Amer) 87.6 ml/min BUN/Creatinine Ratio 18.1 (10-20) Glucose 237 H (70-99) mg/dl Lactate (0.4-2.0) mmol/L Calcium 10.2 H (8.5-10.1) mg/dl Magnesium 1.6 L (1.8-2.4) mg/dl Total Bilirubin 0.8 (0.2-1) mg/dl AST 76 H (15-37) U/L ALT 68 (12-78) U/L Alkaline Phosphatase 95 (45-117) U/L Troponin I < 0.015 (0-0.045) ng/ml Total Protein 8.8 H (6.4-8.2) gm/dl Albumin 3.8 (3.4-5.0) gm/dl Globulin 5.0 H (2.5-4.0) gm/dl Albumin/Globulin Ratio 0.8 L (0.9-2) Lipase 140 (73-393) U/L TSH 3.120 (0.300-4.500) uIu/ml HCG, Qual Negative (Negative) 01/21/21 Range/Units 00:38 WBC (4.8-10.8) K/uL RBC (4.2-5.4) M/uL Hgb (12.0-16.0) g/dL Hct (37-47) % MCV (80-100) fL MCH (25-34) pg MCHC (32-36) g/dL RDW Std Deviation (36.4-46.3) fL RDW Coeff of Ria (11.5-14.5) % Plt Count (130-400) K/uL MPV (7.4-10.4) fL Immature Gran % (Auto) % Neut % (Auto) % Lymph % (Auto) % Johnson % (Auto) % Eos % (Auto) % Baso % (Auto) % Neut # (Auto) (1.4-6.5) K/uL Lymph # (Auto) (1.2-3.4) K/uL Johnson # (Auto) (0.11-0.59) K/uL Eos # (Auto) (0-0.5) K/uL Baso # (Auto) (0-0.2) K/uL Immature Gran # (Auto) (0.00-0.02) K/uL Sodium (136-145) mmol/L Potassium (3.5-5.1) mmol/L Chloride (98-107) mmol/L Carbon Dioxide (21-32) mmol/L Anion Gap (3-11) BUN (7-18) mg/dl Creatinine (0.6-1.2) mg/dl Est Cr Clr Drug Dosing ml/min Est GFR ( Amer) ml/min Est GFR (Non-Af Amer) ml/min BUN/Creatinine Ratio (10-20) Glucose (70-99) mg/dl Lactate 2.2 H* (0.4-2.0) mmol/L Calcium (8.5-10.1) mg/dl Magnesium (1.8-2.4) mg/dl Total Bilirubin (0.2-1) mg/dl AST (15-37) U/L ALT (12-78) U/L Alkaline Phosphatase (45-117) U/L Troponin I (0-0.045) ng/ml Total Protein (6.4-8.2) gm/dl Albumin (3.4-5.0) gm/dl Globulin (2.5-4.0) gm/dl Albumin/Globulin Ratio (0.9-2) Lipase (73-393) U/L TSH (0.300-4.500) uIu/ml HCG, Qual (Negative) Imaging Data Radiologist's Impression: CT abdomen and pelvis with contrast: Comparison to May 06, 2020. There are scattered gas/fluid levels throughout fluid-filled distended but nondilated distal small bowel, right colon, and transverse colon consistent with gastroenteritis and/or ileus. No signs of obstruction or perforation. The previous is seen 9.6 cm anterior abdominal wall fat-containing hernia has been repaired. There is a 3.6 x 1.5 cm oval fluid collection in the subcutaneous t issues at the previous hernia site likely small seroma. No surrounding inflammation is seen to suggest abscess. No recurrence. There is severe fatty infiltration of the liver and hepatomegaly with the liver measuring 29.4 cm craniocaudad. No focal liver lesion is seen. Previous cholecystectomy. No biliary duct dilatation is seen. The spleen, pancreas, adrenal events, and kidneys appear within normal limits. The uterus, adnexa, and urinary bladder appear within normal limits. Skeletal structures demonstrate mild degenerative changes in the thoracic and lumbar spine. No fracture or subluxation. Radiologist: Nik House MD ECG Data Attestation: I personally reviewed and interpreted this ECG as follows: Indication: + abdominal pain, + nausea and + vomiting Rate (beats per minute): 113 Rhythm: + sinus tachycardia ECG Intervals/blocks: + Normal QRS and + Normal QT ECG [place]: + Normal ECG ST segments: + Nonspecific ST abnormalities MDM Narrative This is an ill-appearing 41-year-old female who presents due to multiple GI symptoms and concern for dehydration. Patient actively vomiting during my exam, history obtained, IV fluids started, patient given Zofran for vomiting initially. On additional discussion with the patient, no known diagnosis of QT prolongation although both of her daughters have been diagnosed and she and her are currently undergoing evaluation at this time. Patient's EKG here reassuring, prior with only mild QT prolongation on review in EMR. Patient did complain of some chest pain underneath the left breast although I feel this is more likely related to the nausea and vomiting. Patient was given a dose of Pepcid while here. I do not suspect acute cardiac etiology. Patient given 2 different medications for nausea, continued IV fluids, and patient's hypomagnesemia was repleted through the IV also. Patient continued to be ill appearing. Patient sent to CT which was reassuring also and suggestive of likely gastroenteritis. This is consistent with patient's report of symptoms starting 2 hours after eating at the cafeteria, and this may be a foodborne illness. Due to patient's other chronic medical conditions, persistent symptoms and inability to tolerate anything by mouth, case was discussed with hospitalist for additional evaluation and management. Patient was made aware of all of her results and verbalized understanding. She was also given a copy of her EKG this evening to take with as part of her outpatient evaluation. Patient was found to have mild hyperglycemia, no evidence of DKA. Patient's leukocytosis and mild elevation of lactic acid likely secondary to acute illness and dehydration. I do not suspect occult mesenteric ischemia or ischemic colitis. I do not suspect occult bacteremia/sepsis. An order was placed for continuous cardiac monitoring. The monitor shows a rate of _86_ with _normal sinus_ rhythm. Impression & Plan Nausea vomiting and diarrhea, Acute dehydration, Hypomagnesemia, Hyperglycemia Discharge Plan Visit Data Chief Complaint: Chest Pain Stated Complaint: CHEST PAINS ED Provider: Lety Tilley Discharge Problem: Nausea vomiting and diarrhea, Acute dehydration, Hypomagnesemia, Hyperglycemia Patient Disposition: Admitted As Inpatient Discharge Instructions Interventions: ED Discharge Assessment Last Done: 01/21/21 03:56
[2021-01-20 22:01] LABS: Basophils # (auto) 0.02 K/uL (0-0.2); Basophils % (auto) 0.1 %; Eosinophils # (auto) 0.07 K/uL (0-0.5); Eosinophils % (auto) 0.5 %; Hematocrit (blood only) 44.5 % (37-47); Hemoglobin 15.3 g/dL (12.0-16.0); Immature Granulocytes # (auto) 0.03 K/uL (0.00-0.02); Immature Granulocytes % (auto) 0.2 %; Lymphocytes # (auto) 2.55 K/uL (1.2-3.4); Mean Corpuscular Hemoglobin 31.8 pg (25-34); Mean Corpuscular Hgb Conc 34.4 g/dL (32-36); Mean Corpuscular Volume 92.5 fL (80-100); Mean Platelet Volume 10.5 fL (7.4-10.4); Monocytes # (auto) 0.68 K/uL (0.11-0.59); Monocytes % (auto) 4.8 %; Neutrophils % (auto) 76.4 %; Platelet Count 222 K/uL (130-400); RDW Standard Deviation 43.8 fL (36.4-46.3); Red Blood Count 4.81 M/uL (4.2-5.4); White Blood Count 14.15 K/uL (4.8-10.8)
[2021-01-20 22:10] LABS: Alanine Aminotransferase 68 U/L (12-78); Albumin Level 3.8 gm/dl (3.4-5.0); Aspartate Aminotransferase 76 U/L (15-37); BUN Creatinine Ratio 18.1 (10-20); Blood Urea Nitrogen 15 mg/dl (7-18); Calcium 10.2 mg/dl (8.5-10.1); Carbon Dioxide 23 mmol/L (21-32); Chloride 103 mmol/L (98-107); Creatinine Clr Calc Pharmacy 94.2 ml/min; Est GFR (African American) 101.5 ml/min; Est GFR (Non-African American) 87.6 ml/min; Glucose 237 mg/dl (70-99); Lipase 140 U/L (73-393); Magnesium 1.6 mg/dl (1.8-2.4); Pregnancy Test, Serum Negative (Negative); Sodium 135 mmol/L (136-145)
[2021-01-20 22:21] LABS: Albumin Globulin Ratio 0.8 (0.9-2); Alkaline Phosphatase 95 U/L (45-117); Bilirubin,Total 0.8 mg/dl (0.2-1); Total Protein 8.8 gm/dl (6.4-8.2); Troponin I < 0.015 ng/ml (0-0.045)
[2021-01-20] MEDS ORDERED: LACTATED RINGER'S 1,000 ML IV ONE (22:31)
[2021-01-20] MEDS: MAGNESIUM SULFATE / D5W 1 GM/100 ML BAG IV SCH ×2 (22:44→23:48)
[2021-01-20] MEDS: LACTATED RINGER'S 1,000 ML IV SCH (23:48)
[2021-01-20] MEDS ORDERED: OPTIRAY 320 100ml IV ONE (23:58)
[2021-01-21] MEDS ORDERED: METOCLOPRAMIDE HCL INJ 5 MG/ML 2 ML VIAL IV ONE (00:32)
[2021-01-21] MEDS ORDERED: ACETAMINOPHEN 1,000 MG/100 ML VIAL IV STA (00:34)
--- NOTE | 2021-01-21 05:03 | History and Physical Report ---
DATE OF ADMISSION: 01/21/2021 CHIEF COMPLAINT: Nausea, vomiting and diarrhea. HISTORY OF PRESENT ILLNESS: This is a 41-year-old female with past medical history significant for diabetes, morbid obesity, hepatic steatosis, history of PCOS, panic disorder, tobacco disorder, social anxiety disorder, who presents with nausea, vomiting, and diarrhea. 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 Initially had some abdominal discomfort, that has resolved now. She has come to the ER. She did not move any bowels. Earlier in the ER, she had some nausea and vomiting, but currently that has improved. She also had earlier some chest pain, that has resolved now. She says she gets on an off chest pains. Currently, no chest pain, no shortness of breath, no headache, no blurred vision, no earache, no runny nose, no sore throat. Normal bladder movements. Resting comfortably and hemodynamically stable. Blood pressure running somewhat on the lower side. ALLERGIES: No known drug allergies. PAST MEDICAL HISTORY: As mentioned above. PAST SURGICAL HISTORY: Carpal tunnel surgery, colposcopy, dental surgery, EGD, laparoscopic cholecystectomy with cholangiography, right knee surgery. MEDICATIONS: The patient is on esomeprazole 20 mg p.o. b.i.d., Januvia 100 mg p.o. daily, levonorgestrel-ethinyl 1 tablet p.o. a.m., levothyroxine 25 mcg p.o. a.m., meloxicam 7.5 mg p.o. daily p.r.n., metformin 1000 mg p.o. b.i.d. FAMILY HISTORY: Significant for mother had lung and cervical cancer, has depression; father had diabetes; sister has depression. SOCIAL HISTORY: Former smoker, quit in 2018, smoked half pack a day for 10 years. No alcohol use, no drug use. REVIEW OF SYSTEMS: As per HPI. Rest of the review of symptoms negative. PHYSICAL EXAMINATION: GENERAL: The patient is morbidly obese, not in acute distress. VITAL SIGNS: Temperature 37, pulse 96, respiratory rate 23, blood pressure 107/64, oxygen 93% on room air. HEENT: Pupils equal, round, and reactive to light. Oral mucosa moist. NECK: No JVD. No neck masses. CARDIOVASCULAR: S1, S2 heard, regular rate and rhythm, no murmur, no gallop. RESPIRATORY SYSTEM: Normal AP diameter. No accessory muscle use. No wheezing, no crackles. ABDOMEN: Soft, bowel sounds present. Nontender. No distention. CENTRAL NERVOUS SYSTEM: Cranial nerves II-XII grossly intact. Nonfocal. EXTREMITIES: No edema, no erythema. LABORATORY DATA: WBC 14.1, hemoglobin 15.3, hematocrit 44.5, platelets 222. Sodium 135, potassium 4, chloride 103, bicarbonate 23, BUN 15, creatinine 0.8, serum glucose 237. Lactate 2.2, calcium 10.2, magnesium 1.6, total bilirubin 0.8, AST 76, ALT 68, alkaline phosphatase 95, troponin I less than 0.015. Lipase 140. TSH 3.12. HCG qualitative negative. SARS-CoV-2 PCR pending. IMAGING DATA: CT of the abdomen and pelvis, preliminary report shows gastroenteritis or ileus. EKG: Sinus tachycardia at a rate of 113. Nonspecific T-wave abnormalities. ASSESSMENT AND PLAN: This is a 41-year-old female who presents with nausea, vomiting, and diarrhea. 1. Gastroenteritis versus ileus: On CAT scan, and also diarrhea since eating outside food. Will check stool for stool cultures, stool for C. diff, supportive care .Leukocytosis, mostly reactive. Elevated lactic acid, will repeat the lactic acid. Continue with fluids with IV normal saline at 150 mL per hour. Blood pressure on lower side.will monitor in the [facility]. 2. Diabetes: Hold her home medications. Placed on insulin sliding scale. Will follow the blood sugars. 3. Hypercalcemia: but mostly from dehydration. Will follow the repeat labs in the a.m. 4. Hypomagnesemia: Will replace. 5. Gastroesophageal reflux disease: Continue IV Pepcid. 6. Hypothyroidism: Continue Synthroid. 7. Deep venous thrombosis prophylaxis: Sequential compression devices. DISPOSITION: Monitor in the [facility] tele. Expect to discharge home and follow with family doctor. MONIQUE
[2021-01-21] MEDS ORDERED: ONDANSETRON INJ 2 MG/ML 2 ML VIAL IV PRN (05:09)
[2021-01-21] MEDS ORDERED: ACETAMINOPHEN 325 MG TAB PO PRN (05:09)
[2021-01-21] MEDS ORDERED: NITROGLYCERIN SL 0.4 MG/TAB TAB SL PRN (05:09)
[2021-01-21] MEDS ORDERED: SODIUM CHLORIDE 0.9% 1000ML 1,000 ML IV SCH (05:09)
[2021-01-21] MEDS: LACTATED RINGER'S 1,000 ML IV SCH (05:29)
[2021-01-21] MEDS ORDERED: GLUCAGON FOR INJ 1 MG VIAL IM PRN (05:30)
[2021-01-21] MEDS ORDERED: DEXTROSE 50% 50 ML SYRINGE IV PRN (05:30)
[2021-01-21] MEDS ORDERED: GLUCOSE 40% GEL 15 GM TUBE PO PRN (05:30)
[2021-01-21] MEDS ORDERED: CARBOHYDRATES FOR HYPOGLYCEMIA PO PRN (05:30)
[2021-01-21] MEDS ORDERED: GLUCOSE 10 TABS/TUBE PO PRN (05:30)
[2021-01-21] MEDS ORDERED: Nursing to Pharmacy Communication SCH (06:00)
[2021-01-21] MEDS: INSULIN ASPART 100 UNITS/ML 3 ML PEN SC SCH ×2 (06:18→13:08)
[2021-01-21] MEDS ORDERED: LEVOTHYROXINE SODIUM 25 MCG TABLET PO SCH (06:30)
[2021-01-21 07:17] LABS: Basophils # (auto) 0.02 K/uL (0-0.2); Basophils % (auto) 0.2 %; Eosinophils # (auto) 0.13 K/uL (0-0.5); Eosinophils % (auto) 1.6 %; Hematocrit (blood only) 36.1 % (37-47); Hemoglobin 12.2 g/dL (12.0-16.0); Immature Granulocytes # (auto) 0.01 K/uL (0.00-0.02); Immature Granulocytes % (auto) 0.1 %; Lymphocytes # (auto) 3.22 K/uL (1.2-3.4); Lymphocytes % (auto) 39.2 %; Mean Corpuscular Hemoglobin 31.6 pg (25-34); Mean Corpuscular Hgb Conc 33.8 g/dL (32-36); Mean Corpuscular Volume 93.5 fL (80-100); Mean Platelet Volume 9.9 fL (7.4-10.4); Monocytes # (auto) 0.36 K/uL (0.11-0.59); Monocytes % (auto) 4.4 %; Neutrophils # (auto) 4.48 K/uL (1.4-6.5); Neutrophils % (auto) 54.5 %; Platelet Count 179 K/uL (130-400); RDW Coefficient of Variation 13.1 % (11.5-14.5); RDW Standard Deviation 44.7 fL (36.4-46.3); Red Blood Count 3.86 M/uL (4.2-5.4); White Blood Count 8.22 K/uL (4.8-10.8)
--- NOTE | 2021-01-21 07:29 | CT Scan Report ---
ABDOMEN AND PELVIS CT WITH IV CONTRAST CT DOSE: 1473.66 mGy.cm HISTORY: Nausea. Vomiting. Diarrhea. TECHNIQUE: Multiaxial CT images of the abdomen and pelvis were performed following the use of intrave nous contrast. A dose lowering technique was utilized adhering to the principles of ALARA. COMPARISON STUDY: Abdomen and pelvis CT 05/06/2020. FINDINGS: The lung bases are clear. No pneumoperitoneum. No pneumatosis. No suspicious lytic or blast ic osseous lesions. There is hepatomegaly with severe hepatic steatosis, unchanged. Prior cholecystec rodrigo. Multiple calcified splenic granulomas are again noted. The adrenal glands and pancreas are unre markable. The kidneys enhance normally. No hydronephrosis. Stable subcentimeter retroperitoneal lymph nodes which do not meet CT criteria for pathologic involvement. Normal caliber abdominal aorta. The bladder, uterus, bilateral adnexa are within normal limits. Status post mesh repair of umbilical stan ia. There is a small subcutaneous loculated fluid collection at this location demonstrating a thicken ed enhancing wall. This measures 4.0 x 1.9 cm. This favors a postoperative seroma. Mild inflammatory change surrounding the suspected seroma favors postoperative change. Superimposed infection cannot be excluded on the basis of imaging alone. Normal appendix. Fluid-filled small bowel and colon along th e right side of the abdomen. This could represent a low-grade gastroenteritis. No bowel wall thickeni ng or obstruction. IMPRESSION: 1. Status post mesh repair of a fat-containing umbilical hernia. There is a 4.0 x 1.9 cm thick-walled loculated fluid collection within the subcutaneous fat at this location. This favors a postoperative seroma. Secondary infection would be impossible to exclude. 2. Fluid-filled nondilated loops of large and small bowel in the right side of the abdomen. This is n onspecific but could represent a low-grade gastroenteritis. 3. No bowel wall thickening or obstruction. 4. Normal appendix. 5. Hepatomegaly demonstrating fatty change. 6. Cholecystectomy. ACT 112: Negative or not required by law. Electronically signed by: Jono Hammonds M.D. 01/21/2021 7:28 AM
[2021-01-21] MEDS ORDERED: INSULIN ASPART 100 UNITS/ML 3 ML PEN SC SCH (07:30)
[2021-01-21 07:49] LABS: Calcium 8.4 mg/dl (8.5-10.1); Creatinine Clr Calc Pharmacy 144.2 ml/min; Est GFR (Non-African American) 116.5 ml/min; Magnesium 2.2 mg/dl (1.8-2.4); Potassium 3.7 mmol/L (3.5-5.1)
--- NOTE | 2021-01-21 08:16 | XRay Report ---
XR abdomen 2V w PA chest CLINICAL HISTORY: n/v/d COMPARISON STUDY: August 08 FINDINGS: No pneumothorax or pleural effusion seen. Lung volumes are decreased with crowded lung markings. Minimal atelectasis is seen at the right base. Cardiomediastinal silhouette is within upper limits of normal. No significant pulmonary vascular congestion seen. There are few nondilated gas-filled loops of bowel are seen throughout the abdomen. Paucity of gas wi thin pelvic region is seen. Surgical vida within left lower quadrant are noted. Osseous structures are unremarkable. IMPRESSION: 1. Nonobstructive bowel gas pattern. 2. Small atelectasis at the right base. ACT 112: Negative or not required by law. The above report was generated using voice recognition software. It may contain grammatical, syntax o r spelling errors. Electronically signed by: Gladis Cardoso DO 01/21/2021 8:15 AM
[2021-01-21] MEDS ORDERED: FAMOTIDINE 20 MG in SYRINGE 3 ML IV SCH (09:00)
[2021-01-21 09:03] LABS: Estimated Average Glucose 232 mg/dl; Hemoglobin A1C 9.7 % (4.5-5.6)
--- NOTE | 2021-01-21 09:24 | Hospitalist Progress Note ---
Date of Service January 21, 2021 Assessment & Plan (1) Nausea vomiting and diarrhea: ASSESSMENT AND PLAN: This is a 41-year-old female who presents with nausea, vomiting, and diarrhea. 1. Gastroenteritis versus ileus: On CT scan, and also diarrhea since eating outside food. Will check stool for stool cultures, stool for C. diff, supportive care. Leukocytosis, mostly reactive is now normal. Elevated lactic acid, will repeat the lactic acid. Continue with fluids with IV normal saline at 150 mL per hour. Blood pressure on lower side.will monitor in the med tele. 2. Diabetes: Hold her home medications. Placed on insulin sliding scale. Will follow the blood sugars. 3. Hypercalcemia: but mostly from dehydration. Will follow the repeat labs in the a.m. 4. Hypomagnesemia: Will replace. 5. Gastroesophageal reflux disease: Continue IV Pepcid. 6. Hypothyroidism: Continue Synthroid. 7. Deep venous thrombosis prophylaxis: Sequential compression devices. Labs checked ROS-No Headache, No Visual Changes, No Nausea, No Vomiting, No Fever, No Chills, No Neck Pain or Stiffness, No Chest Pain, No Palpitations, No SOB, No JOHNSON, No Cough, No Sputum, No Wheezing, No Abdominal Pain, No Diarrhea, No Hematemesis, No Hemoptysis, No Unexpected Weight Loss, No Flank pain, No Melena, No Hematochezia, No Frequency, No Urgency, No Burning, No Hematuria, No Rashes, No Diaphoresis. Appetite is Normal Physical Exam Gen-AAO x 3, NAD, Afebrile Head-NCAT, EOMI, PERRLA, Anicteric Sclera, No Posterior Pharyngeal Erythema Neck-Supple, No JVD, No Thyromegaly, No Masses, No LAD, No Bruits Lungs-Clear to Auscultation Bilaterally, No Rales, No Rhonchi, No Wheezing, No Crepitus Chest-No S4, +S1, +S2, No S3, No Murmurs, No Rubs, No Gallops, No Ectopy Abdomen-Soft, Bowel Sounds Present, Non Tender, Non Distended, No Hepatomegaly, No Splenomegaly, No Palpable Masses, No Rebound, No Rigidity, No Guarding Musculoskeletal-Full Range of Motion Bilaterally, No CVAT Extremities-No Cyanosis, No Clubbing, No Edema Nuero-Cranial Nerves II-XII grossly intact, Motor WNL, DTRs WNL, Strength WNL, Non Focal Psych-Normal Mood Admission and Anticipated Discharge Date Admission Date: January 21, 2021 Results & Data Results & Data ([facility]) Vital Signs (Past 12 Hours) Vital Signs Temp Pulse Pulse Resp BP BP Pulse Ox 01/21/21 07:30 36.5 C 90 18 97/60 L 94 01/21/21 05:09 96 H 01/21/21 04:38 36.6 C 16 104/72 94 01/21/21 03:00 96 H 23 107/64 93 01/21/21 02:57 99 H 22 103/65 93 01/21/21 02:55 99 H 23 107/64 95 01/21/21 02:53 96 H 15 93 01/21/21 02:00 102 H 01/21/21 01:02 98 H 25 H 01/21/21 00:30 106 H 22 01/21/21 00:00 109/73 94 01/20/21 23:30 131/74 01/20/21 23:00 99 H 20 131/75 96 01/20/21 22:47 101 H 22 125/78 96 01/20/21 22:30 110 H 24 95 01/20/21 22:01 106 H 24 174/100 H 98 01/20/21 22:00 106 H 27 H 01/20/21 21:30 113 H 27 H 131/84 96 01/20/21 21:26 111 H 20 120/80 95 01/20/21 21:24 109 H 34 H
--- NOTE | 2021-01-21 09:45 | XRay Report ---
KUB HISTORY: Generalized abdominal pain. Nausea. COMPARISON: Abdomen and pelvis CT 01/20/2021. FINDINGS: The bowel gas pattern is unremarkable. There are no dilated loops of small bowel to suggest an obstruction. No renal calculi. No ureteral calculi. No pneumoperitoneum or pneumatosis. Surgical clips within the left side of the abdomen. Prior cholecystectomy. IMPRESSION: 1. No dilated loops of bowel. No evidence for bowel obstruction. 2. Prior cholecystectomy. ACT 112: Negative or not required by law. Electronically signed by: Jono Hammonds M.D. 01/21/2021 9:44 AM
--- NOTE | 2021-01-21 12:35 | Discharge Summary ---
Date of Service January 21, 2021 Admission HPI Per Admitting Provider 41-year-old female with past medical history significant for diabetes, morbid obesity, hepatic steatosis, history of PCOS, panic disorder, tobacco disorder, social anxiety disorder, who presents with nausea, vomiting, and diarrhea. 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 Initially had some abdominal discomfort, that has resolved now. She has come to the ER. She did not move any bowels. Earlier in the ER, she had some nausea and vomiting, but currently that has improved. She also had earlier some chest pain, that has resolved now. She says she gets on an off chest pains. Currently, no chest pain, no shortness of breath, no headache, no blurred vision, no earache, no runny nose, no sore throat. Normal bladder movements. Resting comfortably and hemodynamically stable. Blood pressure running somewhat on the lower side. Admission Exam Per Admitting Provider GENERAL: The patient is morbidly obese, not in acute distress. VITAL SIGNS: Temperature 37, pulse 96, respiratory rate 23, blood pressure 107/64, oxygen 93% on room air. HEENT: Pupils equal, round, and reactive to light. Oral mucosa moist. NECK: No JVD. No neck masses. CARDIOVASCULAR: S1, S2 heard, regular rate and rhythm, no murmur, no gallop. RESPIRATORY SYSTEM: Normal AP diameter. No accessory muscle use. No wheezing, no crackles. ABDOMEN: Soft, bowel sounds present. Nontender. No distention. CENTRAL NERVOUS SYSTEM: Cranial nerves II-XII grossly intact. Nonfocal. EXTREMITIES: No edema, no erythema. Principal Diagnosis Nausea Vomiting Diarrhea Gastroenteritis DM II Discharge Exam See below Discharge Data Allergies Allergy/AdvReac Type Severity Reaction Status Date / Time No Known Allergies Allergy Verified 01/20/21 21:53 Consultations 01/21/21 01:30 ED Decision to Admit Stat Ordered Studies 01/20/21 23:19 CT abd pelvis IV con only Urgent Current Diagnoses Nausea with vomiting, unspecified (01/21/21) Diarrhea, unspecified (01/21/21) Allergies No Known Allergies Allergy (Verified 01/20/21 21:53) Height/Weight/Isolation Height 5 ft Weight 101.4 kg Chemistry 01/20/21 01/21/21 21:30 06:58 Sodium 135 L 137 Potassium 4.0 3.7 Chloride 103 107 Carbon Dioxide 23 26 Anion Gap 9.0 4.0 BUN 15 10 D Creatinine 0.83 0.55 L Glucose 237 H 149 H Diabetes Follow up Diabetes Follow-up Needed for HgbA1c >9% Hospital Course (1) Nausea vomiting and diarrhea: ASSESSMENT AND PLAN: This is a 41-year-old female who presents with nausea, vomiting, and diarrhea. 1. Gastroenteritis versus ileus: On CT scan, and also diarrhea since eating outside food. Will check stool for stool cultures, stool for C. diff, supportive care. Leukocytosis, mostly reactive is now normal. Elevated lactic acid, will repeat the lactic acid. Continue with fluids with IV normal saline at 150 mL per hour. Blood pressure on lower side.will monitor in the med tele. 2. Diabetes: Hold her home medications. Placed on insulin sliding scale. Will follow the blood sugars. 3. Hypercalcemia: but mostly from dehydration. Will follow the repeat labs in the a.m. 4. Hypomagnesemia: Will replace. 5. Gastroesophageal reflux disease: Continue IV Pepcid. 6. Hypothyroidism: Continue Synthroid. 7. Deep venous thrombosis prophylaxis: Sequential compression devices. Labs checked-Symptoms resolved, tolerating diet DC home ROS-No Headache, No Visual Changes, No Nausea, No Vomiting, No Fever, No Chills, No Neck Pain or Stiffness, No Chest Pain, No Palpitations, No SOB, No JOHNSON, No Cough, No Sputum, No Wheezing, No Abdominal Pain, No Diarrhea, No Hematemesis, No Hemoptysis, No Unexpected Weight Loss, No Flank pain, No Melena, No Hematochezia, No Frequency, No Urgency, No Burning, No Hematuria, No Rashes, No Diaphoresis. Appetite is Normal Physical Exam Gen-AAO x 3, NAD, Afebrile Head-NCAT, EOMI, PERRLA, Anicteric Sclera, No Posterior Pharyngeal Erythema Neck-Supple, No JVD, No Thyromegaly, No Masses, No LAD, No Bruits Lungs-Clear to Auscultation Bilaterally, No Rales, No Rhonchi, No Wheezing, No Crepitus Chest-No S4, +S1, +S2, No S3, No Murmurs, No Rubs, No Gallops, No Ectopy Abdomen-Soft, Bowel Sounds Present, Non Tender, Non Distended, No Hepatomegaly, No Splenomegaly, No Palpable Masses, No Rebound, No Rigidity, No Guarding Musculoskeletal-Full Range of Motion Bilaterally, No CVAT Extremities-No Cyanosis, No Clubbing, No Edema Nuero-Cranial Nerves II-XII grossly intact, Motor WNL, DTRs WNL, Strength WNL, Non Focal Psych-Normal Mood Total Time Total Time Spent Total Time Spent (In Minutes): 45 mins Total Time Includes: Examination of the Patient, Discharge Planning, Medication Reconciliation and Communication With Other Providers Discharge Plan Discharge Items Patient Disposition: Home - Self-Care Reason For Visit: N/V AND DIARRHEA Discharge Diagnosis: Nausea Vomiting Diarrhea Gastroenteritis DM II Health Concerns: Relapse Activity: Resume your previous activity Lifting: Gradually increase as tolerated Bathing: No limitations Sexual Activity: When tolerated Exercise/Sports: Gradually increase as tolerated Driving/Machine Use: No limitations Weightbearing: Full weightbearing Non-emergency contact: Primary Care Provider Call non-emergency contact if: you have any medication questions Follow-up/Referrals: Patricia Romero DO [Primary Care Provider] - Diet: Carb Consistent or DM2 and Heart Healthy Addtl Attending Provider Instructions: Pepto bismal PRN for Diarrhea Caution-Metformin can cause Nausea/Vomiting and Abd pain Pending Studies at Discharge: No Stand-Alone Forms: My [employer], Smoking Cessation Medications and DC Order Prescriptions: Continued meloxicam [Mobic] 7.5 mg Tablet 7.5 mg PO DAILY PRN (Reason: Pain) RF: 0 clindamycin phosphate 1 % solution 1 appln TOP DAILY PRN (Reason: BREAKOUTS) RF: 0 levothyroxine 25 mcg tablet 25 mcg PO QAM RF: 0 Januvia 100 mg tablet 100 mg PO QDL RF: 0 levonorgestrel-ethinyl estrad 0.15-0.03 mg tablet 1 tab PO QAM RF: 0 esomeprazole magnesium 20 mg capsule,delayed release(DR/EC) 20 mg PO BID RF: 0 metformin 500 mg tablet extended release 24 hr 1,000 mg PO BID Qty: 60 RF: 0 Discharge Orders: Discharge Order (Routine); Ordered 01/21/21 Ordered By: Vladimir Brito Admission Data Admit Date/Time: 01/21/21 03:12 Attending Provider: Vladimir Brito Provider: Hussain Kinney Primary Care Provider: Patricia Romero Other Providers: Hussain Kinney
--- NOTE | 2021-01-21 15:36 | Electrocardiogram Report ---
Test Reason : Blood Pressure : / mmHG Vent. Rate : 113 BPM Atrial Rate : 113 BPM P-R Int : 130 ms QRS Dur : 074 ms QT Int : 312 ms P-R-T Axes : 039 020 -22 degrees QTc Int : 427 ms Poor data quality, interpretation may be adversely affected Sinus tachycardia Nonspecific T wave abnormality Abnormal ECG When compared with ECG of 19-OCT-2020 13:59, No significant change was found Confirmed by Yunier Pinzon ([id number]) on 01/21/2021 3:35:24 PM Referred By: REFERRED SELF Confirmed By:Yunier Pinzon
== END 2021-01-21 14:00 | disposition home or self-care (01) ==
LOC: ED 20:53 → 2W 20:53

== ENCOUNTER 2024-03-27 11:28 | Observation (INO) ==
--- NOTE | 2024-03-27 11:52 | Emergency Department Note ---
History of Present Illness General Chief complaint: Chest Pain Stated complaint: CHEST PAIN, BACK PAIN, PAIN ON L SIDE OF CHEST Time Seen by Provider: 03/27/24 11:39 Source: patient, RN notes reviewed and old records reviewed (02/12/24-[facility] care visit for COVID) Mode of arrival: ambulatory Limitations: no limitations History of Present Illness Maximum Pain Intensity: 0 This patient is a 44-year-old female who comes in after having intermittent chest pain for the last 3 days. It is in the left side of her chest. She said it lasts a few seconds up to a minute. It is sharp. Nothing makes it better or worse is not pleuritic she had no shortness of breath she said that it hurt down her arm at 1 point and felt like a heaviness around her breast last night. She said 2 nights ago her jaw was hurting but got better with Orajel. Denies her last menstrual period was a month and a half ago she does take oral contraceptives she has pain in her left kidney area as she describes it which she says she has had no dysuria or hematuria no injury. She has had chest pain in the past and has had a workup by Dr. Van at the time she is having palpitations which she is not she did have a stress test but has been multiple years since that she had one. Home Medications Medication Instructions Recorded Confirmed Type fenofibrate 160 mg tablet 160 mg PO DAILY 03/27/24 03/27/24 History levothyroxine 50 mcg tablet 50 mcg PO DAILY@0600 03/27/24 03/27/24 History metformin 500 mg tablet,extended 500 mg PO DAILY 03/27/24 03/27/24 History release 24 hr norgestimate 0.25 mg-ethinyl 1 tab PO DAILY 03/27/24 03/27/24 History estradiol 35 mcg tablet (Sprintec (28)) oxybutynin chloride 10 mg 10 mg PO DAILY 03/27/24 03/27/24 History tablet,extended release 24 hr semaglutide 2 mg/dose (8 mg/3 mL) 2 mg subcut TH 03/27/24 03/27/24 History subcutaneous pen injector (Ozempic) venlafaxine 37.5 mg 37.5 mg PO DAILY 03/27/24 03/27/24 History capsule,extended release 24 hr Allergies Allergy/AdvReac Type Severity Reaction Status Date / Time No Known Allergies Allergy Verified 03/27/24 14:23 Past Med/Surg History Problem List (Updated 03/27/24 @ 18:50 by Anup Aldana MD) Not currently (Acute) History of high cholesterol (Acute) Diabetes (Acute) Family history of heart disease (Acute) Hypertriglyceridemia Chest pain (Acute) Low grade squamous intraepith lesion on cytologic smear cervix (lgsil) Perimenopausal symptom DUB (dysfunctional uterine bleeding) Ovarian cyst Cervical high risk HPV (human papillomavirus) test positive COVID-19 (Acute) Pelvic pain Breast pain, right Nausea vomiting and diarrhea (Acute) Acute dehydration (Acute) Hypomagnesemia (Acute) Hyperglycemia (Acute) Elevated LFTs S/P laparoscopic hernia repair Hypothyroidism DM type 2 (diabetes mellitus, type 2) NIDDM GERD (gastroesophageal reflux disease) Encounter for pre-operative examination Cholelithiasis (Chronic) Laryngopharyngeal reflux (Chronic) Hidradenitis suppurativa (Chronic) Herpes simplex (Chronic) Fatty liver (Chronic) Cystic acne (Chronic) Cervical dysplasia (Chronic) Mild obstructive sleep apnea (Chronic) Nocturnal hypoxemia (Chronic) Vulvar lump Infected sebaceous cyst Supraumbilical hernia PCOS (polycystic ovarian syndrome) (Chronic) Medical History Osteoarthritis PCOS (polycystic ovarian syndrome) Fatty liver IBS (irritable bowel syndrome) History of migraine Surgical History History of incisional hernia repair (10/25/20) Laparoscopic incisional hernia repair. Dr. Mejia 10/25/20 History of colonoscopy History of surgery tumor excision face 1982 History of laparoscopic cholecystectomy History of surgical removal of ganglion cyst [place] teeth removed (06/12/13) Family History Mother Diabetes Heart disease Breast cancer Lung cancer as a result Cervical cancer Myocardial infarction Father Diabetes Heart disease Grandmother (Paternal) Breast cancer Aunt Breast cancer great mat aunt Uterine cancer great maternal aunt Aunt Ovarian cancer Other Family history non-contributory No family history of adverse response to anesthesia Denies family history of Prostate cancer Colorectal cancer Social History Smoking Status: Former smoker Tobacco Type: Cigarettes Second Hand Exposure: Yes (as a child); Do You Dip or Chew Tobacco: No; Hx Alcohol Use: Yes Hx Substance Use: No Preferred Language: Kazakh Communication Ability: Effective Visual Impairment: No Limitations Mold Maker Plaster Required: No Beliefs That Will Affect Care: None marital status: Current Living Situation: Spouse Current Living Situation Comment: and 2 children current occupational status: employed 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 How many Children do You have: 2 Feels Safe at Home: Yes Assistive Devices: Glasses Review of Systems A total of 10 systems reviewed and were otherwise negative Physical Exam Vital Signs Vital Signs - 24 hr 03/27/24 11:33 03/27/24 11:58 03/27/24 11:59 Temperature 36.6 C Temperature Source Oral Pulse Rate 110 H Pulse Rate [Left Finger] 101 H Respiratory Rate 20 20 Respiratory Effort / Characteristics Non-Labored Spontaneous Respiratory Depth Normal Blood Pressure 146/87 H Blood Pressure [Left Arm] 154/89 H Blood Pressure Mean 106 Blood Pressure Mean [Left Arm] 110 Pulse Oximetry 97 98 97 Oxygen Delivery Method Room Air Room Air Room Air Sepsis Recent Fever Within 48 Hours No Sepsis New/Unexplained Change in Mental Status N/A Sepsis Action Taken by Nursing No Action Required 03/27/24 12:00 03/27/24 12:34 03/27/24 14:00 Temperature Temperature Source Pulse Rate 99 H Pulse Rate [Left Finger] 95 H Respiratory Rate 20 Respiratory Effort / Characteristics Respiratory Depth Blood Pressure Blood Pressure [Left Arm] 124/81 Blood Pressure Mean Blood Pressure Mean [Left Arm] 95 Pulse Oximetry 97 98 Oxygen Delivery Method Room Air Room Air Sepsis Recent Fever Within 48 Hours Sepsis New/Unexplained Change in Mental Status Sepsis Action Taken by Nursing General: Well developed well nourished middle-age female who appears in no acute distress, breathing comfortably on room air. Normal speech HEENT: Normal cephalic atraumatic. Pupils are equal round and reactive to light. Extraocular movements are intact. Oropharynx is pink with moist mucous membranes. No swelling of the mouth lips or tongue. Neck: Supple with a midline trachea. No meningeal signs or stiffness, no JVD or bruits. No Stridor. Chest: Clear to auscultation bilaterally. No wheezes or rhonchi. No increased work of breathing. Heart: Regular rate and rhythm without murmurs or gallops. Abdomen: Soft nontender, nondistended without rebound guarding or rigidity. Extremities: No cyanosis clubbing or edema. No calf tenderness or assymetry Spine/Back. Non tender to palpation. No CVA tenderness Skin: Good turgor without rashes. Neurologic exam: Cranial nerves two through 12 are intact. Motor and sensation are intact and symmetrical throughout. Course Administered Medications Insulin Aspart (Insulin Aspart Per Unit Charge) 0 units SC ACHS BERNARDO Stop: 04/26/24 17:15 Last Admin: 03/27/24 18:36 Dose: 1 units Documented By: DM Co-signed By: MMG Discontinued Medications Ioversol (Optiray 320 125ml) 120 ml IV ONCE ONE Stop: 03/27/24 15:38 Last Admin: 03/27/24 15:38 Dose: 120 ml Documented By: SELENA Medical Decision Making Differential Diagnosis Acute coronary syndrome, arrhythmia, PE, pneumothorax, aortic pathology, musculoskeletal, GERD, infection Medical Records Attestation: I reviewed the patient's medical records. Home Medications Current Medication List: was personally reviewed by me Laboratory Data Attestation: I reviewed the patient's lab results. 03/27/24 11:51 03/27/24 11:51 Lab Results 03/27/24 Range/Units 11:51 WBC 4.82 (4.8-10.8) K/ul RBC 4.38 (4.20-5.40) M/uL Hgb 13.5 (12.0-16.0) g/dl Hct 39.5 (37.0-47.0) % MCV 90.2 (80.0-100.0) fL MCH 30.8 (25.0-34.0) pg MCHC 34.2 (32.0-36.0) g/dL RDW Std Deviation 40.1 (36.4-46.3) fL RDW Coeff of Ria 12.2 (11.5-14.5) % Plt Count 209 (130-400) K/uL MPV 9.8 (9.4-12.4) fL Immature Gran % (Auto) 0.2 % Neut % (Auto) 44.2 % Lymph % (Auto) 49.6 % Moca % (Auto) 5.2 % Eos % (Auto) 0.4 % Baso % (Auto) 0.4 % Neut # (Auto) 2.13 (1.40-6.50) K/uL Lymph # (Auto) 2.39 (1.20-3.40) K/uL Moca # (Auto) 0.25 (0.11-0.59) K/uL Eos # (Auto) 0.02 (0.00-0.50) K/uL Baso # (Auto) 0.02 (0.00-0.20) K/uL Immature Gran # (Auto) 0.01 (0.01-0.20) K/uL PT 10.1 (9.0-12.0) Seconds INR 0.9 (0.9-1.1) APTT 24 (21-31) Seconds PTT Ratio 0.9 D-Dimer < 190 (0-500) ug/L FEU Sodium 136 (136-145) mmol/L Potassium 3.7 (3.5-5.1) mmol/L Chloride 103 (98-107) mmol/L Carbon Dioxide 25 (21-32) mmol/L Anion Gap 8 (3-11) BUN 8 (6-23) mg/dl Creatinine 0.65 (0.6-1.2) mg/dl Est Cr Clr Drug Dosing 103.5 ml/min Est GFR ( Amer) 125.1 ml/min Est GFR (Non-Af Amer) 108.0 ml/min BUN/Creatinine Ratio 12.3 (10-20) Glucose 154 H (70-99(Fasting)) mg/dl Calcium 9.6 (8.6-10.3) mg/dl Total Bilirubin 0.3 (0.2-1.0) mg/dl AST 21 (13-39) U/L ALT 17 (7-52) U/L Alkaline Phosphatase 38 (34-104) U/L Troponin I High Sens < 2.3 (0-14) pg/ml Total Protein 7.7 (6.0-8.3) gm/dl Albumin 4.5 (3.4-5.0) gm/dl Globulin 3.2 (2.5-4.0) gm/dl Albumin/Globulin Ratio 1.4 (0.9-2) Lipase 44 (11-82) U/L HCG, Qual Negative (Negative) Imaging Data Attestation: I personally reviewed and interpreted this imaging study as follows: My Impression: Chest x-ray-no acute infiltrate, failure, pneumothorax seen as per my independent interpretation Radiologist's Impression: Chest X-Ray 03/27/24 11:42 XR chest 1V portable CLINICAL HISTORY: Chest pain, nonspecific TECHNIQUE: Single frontal radiograph of the chest was obtained. Comparison: Comparison is made to chest radiograph 09/20/2021 FINDINGS: No lines and tubes are seen. The cardiomediastinal silhouette is normal. The lungs are clear. No evidence of pleural effusion or pneumothorax. IMPRESSION: No acute chest disease. ACT 112: Negative or not required by law. Electronically signed by: Carmelo Rivas M.D. 03/27/2024 12:11 PM ECG Data Attestation: I personally reviewed and interpreted this ECG as follows: Indication: + chest pain Rate (beats per minute): 107 Rhythm: + sinus tachycardia ECG Intervals/blocks: + Normal QRS, + Normal QT and + Normal CO ECG [place]: + Normal ECG ST segments: + Normal ST segments ECG Findings: + Other (Nonspecific T wave abnormality) Comparison ECG Date: from (09/16/23) Change: no significant change MDM Narrative This patient comes in as described above she has been having intermittent chest pain. Her initial EKG does not show any definite ischemic changes with some nonspecific changes. She is pain-free at present she was given aspirin 324 mg chewable and placed on a monitoring coordinator. Multiple blood testing was obtained chest x-ray and EKG were obtained. Her symptoms are somewhat atypical however she does have significant cardiac risk factors including diabetes, hypercholesterolemia and family history. She said her mother had a heart attack at age 48. Chest x-ray shows no acute infiltrate, failure, pneumothorax. EKG was unremarkable without ischemic changes troponin is negative. D-dimer is normal and and in a low pretest probability, makes PE highly unlikely. She has no acute electrolyte or metabolic abnormalities. test was unremarkable. She looks well and her workup is reassuring thus far however she does have significant cardiac risk factors, in light of this I do think she should be admitted/observed for further inpatient treatment and evaluation [facility] in the ER and admit/observe her for these measures. Continuous cardiac monitoring call orders placed in EMR for continuous monitoring coordinator: Upon my evaluation patient noted to be normal sinus rhythm rate of 90 Impression & Plan Chest pain, Family history of heart disease, Diabetes, History of high cholesterol, Not currently Discharge Plan Visit Data Chief Complaint: Chest Pain Stated Complaint: CHEST PAIN, BACK PAIN, PAIN ON L SIDE OF CHEST ED Provider: Anup Aldana Discharge Problem: Chest pain, Family history of heart disease, Diabetes, History of high cholesterol, Not currently Discharge Instructions Interventions: ED Discharge Assessment Last Done: 03/27/24 17:17 Discharge Problem: Chest pain Qualifiers: Chest pain type: precordial pain Qualified Code(s): R07.2 - Precordial pain Diabetes Qualifiers: Diabetes mellitus type: type 2 Diabetes mellitus nursing home insulin use: without nursing home use Diabetes mellitus complication status: without complication Q ualified Code(s): E11.9 - Type 2 diabetes mellitus without complications
--- NOTE | 2024-03-27 12:12 | XRay Report ---
XR chest 1V portable CLINICAL HISTORY: Chest pain, nonspecific TECHNIQUE: Single frontal radiograph of the chest was obtained. Comparison: Comparison is made to chest radiograph 09/20/2021 FINDINGS: No lines and tubes are seen. The cardiomediastinal silhouette is normal. The lungs are clear. No evid ence of pleural effusion or pneumothorax. IMPRESSION: No acute chest disease. ACT 112: Negative or not required by law. Electronically signed by: Carmelo Rivas M.D. 03/27/2024 12:11 PM
[2024-03-27 12:24] LABS: Basophils # (auto) 0.02 K/uL (0.00-0.20); Basophils % (auto) 0.4 %; Eosinophils # (auto) 0.02 K/uL (0.00-0.50); Eosinophils % (auto) 0.4 %; Hematocrit (blood only) 39.5 % (37.0-47.0); Hemoglobin 13.5 g/dl (12.0-16.0); Immature Granulocytes # (auto) 0.01 K/uL (0.01-0.20); Immature Granulocytes % (auto) 0.2 %; Lymphocytes # (auto) 2.39 K/uL (1.20-3.40); Lymphocytes % (auto) 49.6 %; Mean Corpuscular Hemoglobin 30.8 pg (25.0-34.0); Mean Corpuscular Hgb Conc 34.2 g/dL (32.0-36.0); Mean Corpuscular Volume 90.2 fL (80.0-100.0); Mean Platelet Volume 9.8 fL (9.4-12.4); Monocytes # (auto) 0.25 K/uL (0.11-0.59); Monocytes % (auto) 5.2 %; Neutrophils # (auto) 2.13 K/uL (1.40-6.50); Neutrophils % (auto) 44.2 %; Platelet Count 209 K/uL (130-400); RDW Coefficient of Variation 12.2 % (11.5-14.5); RDW Standard Deviation 40.1 fL (36.4-46.3); Red Blood Count 4.38 M/uL (4.20-5.40); White Blood Count 4.82 K/ul (4.8-10.8)
[2024-03-27 12:39] LABS: Pregnancy Test, Serum Negative (Negative)
[2024-03-27 12:41] LABS: Alanine Aminotransferase 17 U/L (7-52); Albumin Globulin Ratio 1.4 (0.9-2); Albumin Level 4.5 gm/dl (3.4-5.0); Alkaline Phosphatase 38 U/L (34-104); Anion Gap 8 (3-11); Aspartate Aminotransferase 21 U/L (13-39); BUN Creatinine Ratio 12.3 (10-20); Bilirubin,Total 0.3 mg/dl (0.2-1.0); Blood Urea Nitrogen 8 mg/dl (6-23); Calcium 9.6 mg/dl (8.6-10.3); Carbon Dioxide 25 mmol/L (21-32); Chloride 103 mmol/L (98-107); Creatinine Clr Calc Pharmacy 103.5 ml/min; Est GFR (African American) 125.1 ml/min; Globulin 3.2 gm/dl (2.5-4.0); Glucose 154 mg/dl (70-99(Fasting)); Lipase 44 U/L (11-82); Potassium 3.7 mmol/L (3.5-5.1); Sodium 136 mmol/L (136-145); Total Protein 7.7 gm/dl (6.0-8.3)
[2024-03-27 12:46] LABS: Troponin I High Sensitivity < 2.3 pg/ml (0-14)
[2024-03-27 13:05] LABS: D Dimer < 190 ug/L FEU (0-500); INR 0.9 (0.9-1.1); Partial Thromboplastin Ratio 0.9; Partial Thromboplastin Time 24 Seconds (21-31); Prothrombin Time 10.1 Seconds (9.0-12.0)
--- NOTE | 2024-03-27 14:08 | History & Physical Report ---
Date of Service March 27, 2024 Assessment & Plan (1) Chest pain: (2) DM type 2 (diabetes mellitus, type 2): (3) Hypothyroidism: (4) Hypertriglyceridemia: Plan This is a 44-year-old male who has a significant past medical history of T2DM, hypothyroidism, hypertriglyceridemia, panic/anxiety disorder, hidradenitis suppurativa who presents to ED secondary to CP x 4 days. Atypical Chest pain with risk factors of T2DM, obesity, high triglycerides and FH of MS with mother at 48 admit under obs for cardiac work up cycle trops, obtain echo consult cardiology - Dr. Montilla aware for consideration of stress test in a.m. CTA chest: negative for PE + RLL 5mm nodule, recommend outpt follow up repeat ecg in a.m. a1c 5.6 03/11; Lipid panel trig 233, chol 183, HDL 30 and LDL 107 on 03/11/24 Hypertriglyceridemia - chronic, recent trig 233, low fat diet, continue fenofibrate Hypothyroidism: chronic, stable continue levothyroxine Panic disorder/anxiety: continue effexor, mood stable DVT ppx: SCDS for now FULL CODE PCP: Champ Richards Dispo: admit to PCU under obs for cardiac work up Pt was seen and examined in collaboration with Dr. Briones, please see addendum A total of 60 minutes was spent coordinating, documenting, and providing care for this patient excluding time spent in the performance of separately billed services. This included personally viewing all current laboratories and imaging studies, medication reconciliation, outpatient chart review, and discussion with specialists. History of Present Illness Chief Complaint: Chest pain x 4 days. Primary Care Provider: Donn Fallon MD This is a 44-year-old male who has a significant past medical history of T2DM, hypothyroidism, hypertriglyceridemia, panic/anxiety disorder, hidradenitis suppurativa who presents to ED secondary to CP x 4 days. Patient is sedentary at baseline. 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 When she was sitting at her desk on Sunday morning she noticed left-sided chest pain that would come on for a few seconds to a minute. Her symptoms have persisted over the last 4 days, coming and going. It has occurred once with exertion when emptying a metal hardener, but otherwise they have been at rest. She also has had intermittent right-sided jaw pain for which she tried Orajel for. The chest pain and jaw pain did not occur simultaneously. Yesterday she also noticed that the pain radiated around her left breast to her back. When she called her PCP to try to get an, "EKG," and this morning they referred her to the ED. She reports in the past having history of palpitations for which she underwent multiple Holter monitors and stress tests which were unremarkable. She does report history of COVID in January after traveling on a cruise to the [facility]. She denies smoking or alcohol use. She has a strong family history of heart disease with her mother who sustained an MS at 48. She was also in her 60s from an MS, but was the results of lung cancer/PE. Her father has history of atrial fibrillation and is status post Watchman procedure. In ED patient remained hemodynamically stable. Her initial troponin was unremarkable. Her EKG was without significant ST or T wave change. Her CBC and CMP were unremarkable except for mild elevated glucose at 154. She denies any recent trauma, injury or lifting. Her symptoms are not reproducible, she denies any worsening symptoms with inspiration or movement. Currently she is chest pain free. Allergies Allergy/AdvReac Type Severity Reaction Status Date / Time No Known Allergies Allergy Verified 03/27/24 14:23 Home Medications Medication Instructions Recorded Confirmed Type fenofibrate 160 mg tablet 160 mg PO DAILY 03/27/24 03/27/24 History levothyroxine 50 mcg tablet 50 mcg PO DAILY@0600 03/27/24 03/27/24 History metformin 500 mg tablet,extended 500 mg PO DAILY 03/27/24 03/27/24 History release 24 hr norgestimate 0.25 mg-ethinyl 1 tab PO DAILY 03/27/24 03/27/24 History estradiol 35 mcg tablet (Sprintec (28)) oxybutynin chloride 10 mg 10 mg PO DAILY 03/27/24 03/27/24 History tablet,extended release 24 hr semaglutide 2 mg/dose (8 mg/3 mL) 2 mg subcut TH 03/27/24 03/27/24 History subcutaneous pen injector (Ozempic) venlafaxine 37.5 mg 37.5 mg PO DAILY 03/27/24 03/27/24 History capsule,extended release 24 hr Past Med/Surg History Problem List (Updated 03/27/24 @ 18:50 by Anup Aldana MD) Not currently (Acute) History of high cholesterol (Acute) Diabetes (Acute) Family history of heart disease (Acute) Hypertriglyceridemia Chest pain (Acute) Low grade squamous intraepith lesion on cytologic smear cervix (lgsil) Perimenopausal symptom DUB (dysfunctional uterine bleeding) Ovarian cyst Cervical high risk HPV (human papillomavirus) test positive COVID-19 (Acute) Pelvic pain Breast pain, right Nausea vomiting and diarrhea (Acute) Acute dehydration (Acute) Hypomagnesemia (Acute) Hyperglycemia (Acute) Elevated LFTs S/P laparoscopic hernia repair Hypothyroidism DM type 2 (diabetes mellitus, type 2) NIDDM GERD (gastroesophageal reflux disease) Encounter for pre-operative examination Cholelithiasis (Chronic) Laryngopharyngeal reflux (Chronic) Hidradenitis suppurativa (Chronic) Herpes simplex (Chronic) Fatty liver (Chronic) Cystic acne (Chronic) Cervical dysplasia (Chronic) Mild obstructive sleep apnea (Chronic) Nocturnal hypoxemia (Chronic) Vulvar lump Infected sebaceous cyst Supraumbilical hernia PCOS (polycystic ovarian syndrome) (Chronic) Medical History Osteoarthritis PCOS (polycystic ovarian syndrome) Fatty liver IBS (irritable bowel syndrome) History of migraine Surgical History History of incisional hernia repair (10/25/20) Laparoscopic incisional hernia repair. Dr. Mejia 10/25/20 History of colonoscopy History of surgery tumor excision face 1982 History of laparoscopic cholecystectomy History of surgical removal of ganglion cyst [place] teeth removed (06/12/13) Family History Mother Diabetes Heart disease Breast cancer Lung cancer as a result Cervical cancer Myocardial infarction Father Diabetes Heart disease Grandmother (Paternal) Breast cancer Aunt Breast cancer great mat aunt Uterine cancer great maternal aunt Aunt Ovarian cancer Other Family history non-contributory No family history of adverse response to anesthesia Denies family history of Prostate cancer Colorectal cancer Social History Smoking Status: Former smoker Tobacco Type: Cigarettes Second Hand Exposure: Yes (as a child); Do You Dip or Chew Tobacco: No; Hx Alcohol Use: No Hx Substance Use: No Preferred Language: Urdu Communication Ability: Effective Visual Impairment: No Limitations Journalism Internship Required: No Beliefs That Will Affect Care: None marital status: Current Living Situation: Spouse Current Living Situation Comment: lives at home with current occupational status: employed 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 How many Children do You have: 2 Other Information That Helps Us Care for You: No Feels Safe at Home: Yes Safety Concerns: Feels Safe At This Time Assistive Devices: Glasses Review of Systems Review of Systems: All systems reviewed & are unremarkable except as noted in HPI & below Physical Exam Physical Exam: constitutional: WD/WN, vitals as above, NAD, sitting up in bed, pleasant, conversing easily Head: Normocephalic, Atraumatic Eyes: PERRL, conjunctivae normal, anicteric sclerae ENMT: external ear and nose normal, oropharynx normal Neck: trachea midline, no thyromegaly normal visual inspection Respiratory: normal respiratory effort, lungs clear to auscultation, no wheeze, rales, rhonchi. Normal insp/exp effort, no accessory muscle use Cardiovascular: RRR, no murmur, no edema Vessels: no JVD or carotid bruit Chest: normal inspection of chest , chest pain is not reproducible Abdomen: normal bowel sounds, soft, nontender, no hepatosplenomegaly Musculoskeletal: no cyanosis or clubbing, extremities motor strength 5/5 Skin: no rashes, warm and dry normal turgor Neurologic: PERRL, EOMI, accommodation nl, no face palsy, no dysarthria CN's II-XI intact bilaterally and moves all extremities Psychiatric: A+Ox3, euthymic affect Lymphatic: no cervical or axillary lymphadenopathy : deferred Results & Data Results & Data Vital Signs (Past 12 Hours) Vital Signs Temp Pulse Pulse Resp BP BP Pulse Ox 03/27/24 12:34 99 H 03/27/24 12:00 97 03/27/24 11:59 101 H 20 154/89 H 97 03/27/24 11:58 98 03/27/24 11:33 36.6 C 110 H 20 146/87 H 97 O2 Del Method 03/27/24 12:34 03/27/24 12:00 Room Air 03/27/24 11:59 Room Air 03/27/24 11:58 Room Air 03/27/24 11:33 Room Air Laboratory Results I have independently reviewed and interpreted patient's admitting labs including CBC, CMP, PTT, PT/INR, hcg, lipase, dimer and troponin. Diagnostic Findings Chest X-Ray 03/27/24 11:42 XR chest 1V portable CLINICAL HISTORY: Chest pain, nonspecific TECHNIQUE: Single frontal radiograph of the chest was obtained. Comparison: Comparison is made to chest radiograph 09/20/2021 FINDINGS: No lines and tubes are seen. The cardiomediastinal silhouette is normal. The lungs are clear. No evidence of pleural effusion or pneumothorax. IMPRESSION: No acute chest disease. ACT 112: Negative or not required by law. Electronically signed by: Carmelo Rivas M.D. 03/27/2024 12:11 PM ECG Additional Comments: I have independently reviewed and interpreted patient's admitting EKG which revealed: sinus tachycardia 107, no significant ST/T wave change, this was compared to ecg in august of 2023 COVID-19 Results Results COVID-19 Adm Lab Results: RBC 4.38 M/uL (4.20-5.40) 03/27/24 WBC 4.82 K/ul (4.8-10.8) 03/27/24 Hgb 13.5 g/dl (12.0-16.0) 03/27/24 Hct 39.5 % (37.0-47.0) 03/27/24 Plt Count 209 K/uL (130-400) 03/27/24 Neutrophils (%) (Auto) 44.2 % 03/27/24 Lymphocytes (%) (Auto) 49.6 % 03/27/24 Monocytes # (Auto) 0.25 K/uL (0.11-0.59) 03/27/24 Eosinophils # (Auto) 0.02 K/uL (0.00-0.50) 03/27/24 Immature Granulocyte % (Auto) 0.2 % 03/27/24 Neutrophils # (Auto) 2.13 K/uL (1.40-6.50) 03/27/24 Lymphocytes # (Auto) 2.39 K/uL (1.20-3.40) 03/27/24 Monocytes # (Auto) 0.25 K/uL (0.11-0.59) 03/27/24 Eosinophils # (Auto) 0.02 K/uL (0.00-0.50) 03/27/24 Basophils # (Auto) 0.02 K/uL (0.00-0.20) 03/27/24 Immature Granulocyte # (Auto) 0.01 K/uL (0.01-0.20) 4 Na 136 mmol/L (136-145) 03/27/24 K 3.7 mmol/L (3.5-5.1) 03/27/24 Cl 103 mmol/L (98-107) 03/27/24 CO2 25 mmol/L (21-32) 03/27/24 Anion Gap 8 (3-11) 03/27/24 BUN 8 mg/dl (6-23) 03/27/24 Creatinine 0.65 mg/dl (0.6-1.2) 03/27/24 BUN/Creatinine Ratio 12.3 (10-20) 03/27/24 Glucose Level 154 mg/dl (70-99(Fasting)) H 03/27/24 Ca 9.6 mg/dl (8.6-10.3) 03/27/24 Total Bilirubin 0.3 mg/dl (0.2-1.0) 03/27/24 AST/SGOT 21 U/L (13-39) 03/27/24 ALT/SGPT 17 U/L (7-52) 03/27/24 Alkaline Phosphatase 38 U/L (34-104) 03/27/24 Total Protein 7.7 gm/dl (6.0-8.3) 03/27/24 Albumin 4.5 gm/dl (3.4-5.0) 03/27/24 Globulin 3.2 gm/dl (2.5-4.0) 03/27/24 Albumin/Globulin Ratio 1.4 (0.9-2) 03/27/24 D-Dimer < 190 ug/L FEU (0-500) 03/27/24 PTT 24 Seconds (21-31) 03/27/24 INR 0.9 (0.9-1.1) 03/27/24 Chest X-Ray 03/27/24 Code Status & VTE Plan Code Status FULL CODE VTE Prophylaxis Plan VTE Prophylaxis will be ordered: Yes Reason for no VTE drug order: Treatment not tolerated Supervising Physician Co-Signing Physician Notes Patient was seen and examined independently at bedside. Chart reviewed. Case discussed with Beverly HOLLIS and agree with the documentation above. In summary, this is a 44 year old female who presents with intermittent CP for past 2-[address] chest negative for PE. Trop trend has been negative. Echo noted. Cardio plans for stress test in the morning given the risk factors as described above. Continue tele. Currently chest pain free. Rest as per the note above. 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
[2024-03-27] MEDS: OPTIRAY 320 125ml IV ONE (15:38)
--- NOTE | 2024-03-27 16:09 | CT Scan Report ---
CT angio chest PE protocol CLINICAL HISTORY: r/o PE TECHNIQUE: Multidetector row helical CT of the chest was performed with angiographic protocol. Alberto l and sagittal reformations were obtained. Coronal and sagittal MIPS were obtained from the axial jorge a set and were submitted for review. Automated dose lowering techniques and/or adjustment according to patient size were utilized for this exam. CT DOSE: 833.09 mGy.cm Comparison: Comparison is made to CT chest 07/03/2017 FINDINGS: Lungs and pleura: Mild emphysema is seen. 5 mm pleural-based nodule in the right lower lobe (series 4 image 63). Heart and pericardium: Heart size is normal. No pericardial effusion. Vessels: No evidence of pulmonary embolism. Mediastinum and gabrielle: Unremarkable. Chest wall and lower neck: Unremarkable. Abdomen: Unremarkable. Bones: Degenerative changes in the thoracic spine. IMPRESSION: 1. No acute abnormality and in particular no evidence of pulmonary embolus. 2. Small pulmonary nodule as above. ACT 112: Negative or not required by law. Electronically signed by: Carmelo Rivas M.D. 03/27/2024 4:07 PM
--- NOTE | 2024-03-27 16:51 | Cardiology Consultation ---
Date of Consultation March 27, 2024 Assessment & Plan (1) Chest pain: (2) Hypertriglyceridemia: Plan 44-year-old female with cardiovascular risk factors of premature coronary disease in family, low HDL dyslipidemia, type 2 diabetes mellitus presents with intermittent chest tightness/pain x 2 to 3 days duration. Some atypical features. Initial enzymes and EKGs without acute injury pattern. Preserved LV systolic function on echo Patient being admitted to complete evaluation including exclusion of pulmonary embolus given recent travel Stress echocardiography planned for a.m. History of Present Illness Reason for Consultation: Chest pain Requesting Physician: Jeffry romero History of Present Illness Patient is a 44-year-old female with cardiac concerns 1. Low HDL dyslipidemia with elevated triglycerides 2. Sinus tachycardia 3. Type 2 diabetes mellitus 4. Obstructive sleep apnea 5. Familial history of premature coronary disease in mother Patient is referred for evaluation of chest pain approximately 2 to 3 days duration. Notes intermittent hard/sharp pains lasting less than 15 seconds but occurring at rest. Episode this morning possibly associated with jaw discomfort. No tachypalpitations syncope or near syncope. No orthopnea or worsening peripheral edema. No history of prior myocardial infarction, angina or congestive heart failure. No history rheumatic fever scarlet fever renal or hepatic disease Has chronic bleeding hypermenorrhea with recent addition of oral contraceptive Recent return from a cruise to the [place], tested positive on return for COVID. Animal interactions with spider monkeys while vacationing Patient non-smoker x 8 years Allergies Allergy/AdvReac Type Severity Reaction Status Date / Time No Known Allergies Allergy Verified 03/27/24 14:23 Home Medications Medication Instructions Recorded Confirmed Type fenofibrate 160 mg tablet 160 mg PO DAILY 03/27/24 03/27/24 History levothyroxine 50 mcg tablet 50 mcg PO DAILY@0600 03/27/24 03/27/24 History metformin 500 mg tablet,extended 500 mg PO DAILY 03/27/24 03/27/24 History release 24 hr norgestimate 0.25 mg-ethinyl 1 tab PO DAILY 03/27/24 03/27/24 History estradiol 35 mcg tablet (Sprintec (28)) oxybutynin chloride 10 mg 10 mg PO DAILY 03/27/24 03/27/24 History tablet,extended release 24 hr semaglutide 2 mg/dose (8 mg/3 mL) 2 mg subcut TH 03/27/24 03/27/24 History subcutaneous pen injector (Ozempic) venlafaxine 37.5 mg 37.5 mg PO DAILY 03/27/24 03/27/24 History capsule,extended release 24 hr Patient History Medical History Osteoarthritis PCOS (polycystic ovarian syndrome) Fatty liver IBS (irritable bowel syndrome) History of migraine Surgical History History of incisional hernia repair (10/25/20) Laparoscopic incisional hernia repair. Dr. Mejia 10/25/20 History of colonoscopy History of surgery tumor excision face 1982 History of laparoscopic cholecystectomy History of surgical removal of ganglion cyst [place] teeth removed (06/12/13) Family History Mother Diabetes Heart disease Breast cancer Lung cancer as a result Cervical cancer Myocardial infarction Father Diabetes Heart disease Grandmother (Paternal) Breast cancer Aunt Breast cancer great mat aunt Uterine cancer great maternal aunt Aunt Ovarian cancer Other Family history non-contributory No family history of adverse response to anesthesia Denies family history of Prostate cancer Colorectal cancer Social History Smoking Status: Former smoker Tobacco Type: Cigarettes Second Hand Exposure: Yes (as a child); Do You Dip or Chew Tobacco: No; Hx Alcohol Use: Yes Hx Substance Use: No Preferred Language: Mauritian Communication Ability: Effective Visual Impairment: No Limitations Hog Ribber Required: No Beliefs That Will Affect Care: None marital status: Current Living Situation: Spouse Current Living Situation Comment: and 2 children current occupational status: employed 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 How many Children do You have: 2 Feels Safe at Home: Yes Assistive Devices: Glasses Review of Systems Review of Systems: All systems reviewed & are unremarkable except as noted in HPI & below Physical Exam Constitutional: WD/WN, vitals as above no acute distress Eyes: PERRL, conjunctivae normal, anicteric sclerae ENMT: external ear and nose normal, oropharynx normal Neck: trachea midline, no thyromegaly Respiratory: normal respiratory effort, lungs clear to auscultation Cardiovascular: RRR, no murmur, no edema Vessels: no JVD Extremities: no edema Gastrointestinal (Abdomen): normal bowel sounds, soft, nontender, no hepatosplenomegaly Musculoskeletal: no cyanosis or clubbing, extremities motor strength 5/5 Head/Neck/Chest: no chest tenderness Results & Data Vital Signs (Past 12 Hours) Vital Signs Temp Pulse Pulse Pulse Resp BP BP 03/27/24 16:32 94 H 17 03/27/24 14:00 95 H 20 124/81 03/27/24 12:34 99 H 03/27/24 12:00 03/27/24 11:59 101 H 20 154/89 H 03/27/24 11:58 03/27/24 11:33 36.6 C 110 H 20 146/87 H BP Pulse Ox O2 Del Method 03/27/24 16:32 117/78 96 Room Air 03/27/24 14:00 98 Room Air 03/27/24 12:34 03/27/24 12:00 97 Room Air 03/27/24 11:59 97 Room Air 03/27/24 11:58 98 Room Air 03/27/24 11:33 97 Room Air Laboratory Results Laboratory Results - last 24 hr 03/27/24 03/27/24 11:51 14:17 WBC 4.82 RBC 4.38 Hgb 13.5 Hct 39.5 MCV 90.2 MCH 30.8 MCHC 34.2 RDW Std Deviation 40.1 RDW Coeff of Ria 12.2 Plt Count 209 MPV 9.8 Immature Gran % (Auto) 0.2 Neut % (Auto) 44.2 Lymph % (Auto) 49.6 [place] % (Auto) 5.2 Eos % (Auto) 0.4 Baso % (Auto) 0.4 Neut # (Auto) 2.13 Lymph # (Auto) 2.39 [place] # (Auto) 0.25 Eos # (Auto) 0.02 Baso # (Auto) 0.02 Immature Gran # (Auto) 0.01 PT 10.1 INR 0.9 APTT 24 PTT Ratio 0.9 D-Dimer < 190 Sodium 136 Potassium 3.7 Chloride 103 Carbon Dioxide 25 Anion Gap 8 BUN 8 Creatinine 0.65 Est Cr Clr Drug Dosing 103.5 Est GFR ( Amer) 125.1 Est GFR (Non-Af Amer) 108.0 BUN/Creatinine Ratio 12.3 Glucose 154 H Calcium 9.6 Total Bilirubin 0.3 AST 21 ALT 17 Alkaline Phosphatase 38 Troponin I High Sens < 2.3 2.5 Total Protein 7.7 Albumin 4.5 Globulin 3.2 Albumin/Globulin Ratio 1.4 Lipase 44 HCG, Qual Negative Diagnostic Findings Echocardiogram: Low normal LV systolic function without wall motion abnormality or valvular disease ECG Additional Comments: EKG sinus tachycardia without acute ST segment changes or arrhythmia
[2024-03-27] MEDS ORDERED: GLUCAGON FOR INJ 1 MG VIAL SQ PRN (17:16)
[2024-03-27] MEDS ORDERED: GLUCOSE 40% GEL 15 GM TUBE PO PRN (17:16)
[2024-03-27] MEDS ORDERED: DEXTROSE 50% 50 ML SYRINGE IV PRN (17:16)
[2024-03-27] MEDS ORDERED: ACETAMINOPHEN 325 MG TAB PO PRN (17:16)
[2024-03-27] MEDS ORDERED: POLYETHYLENE (MIRALAX) 17 GM PACK PO PRN (17:16)
[2024-03-27] MEDS ORDERED: GLUCOSE 10 TAB/TUBE PO PRN (17:16)
[2024-03-27] MEDS ORDERED: ONDANSETRON INJ 2 MG/ML 2 ML VIAL IV PRN (17:16)
[2024-03-27] MEDS ORDERED: CARBOHYDRATES FOR HYPOGLYCEMIA PO PRN (17:16)
[2024-03-27] MEDS ORDERED: FAMOTIDINE 20 MG TAB PO PRN (17:16)
[2024-03-27] MEDS: INSULIN ASPART PER UNIT CHARGE SC SCH (18:36)
--- OUTSIDE RECORDS SUMMARY | 2024-03-27 19:09 | External Medical Summary ---
Author Name Unknown Address Unknown Organization [id number]:[facility] [place] [address] [place] [id number] Laboratory Report Ordering Provider Test Date Status YESI LR 03/20/2024 10:24:54 Final Observation Date Value Abnormality Reference (Units ) Status WBC, Total 03/20/2024 10:24:54 6.38 4.00-10.8 0 (K/uL) Final RBC 03/20/2024 10:24:54 4.25 3.85-5.15 (M/uL) Final Hemoglobin 03/20/2024 10:24:54 13.2 12.0-15.3 (g/dL) Final Anemia reflex testing trigge rs on a HGB < 12.0 for Females and HGB < 13.0 for Males in accordance with the WHO Anemia Guidelines
Anemia reflex testing triggers on a HGB < 12.0 for Females and HGB < 13.0 for Males in accordance with the WHO Anemia Guidelines HCT 03/20/2024 10:24:54 40.1 36.0-45.2 (%) Final MCV 03/20/2024 10:24:54 94.4 81.5-97.5 (fL) Final MCH 03/20/2024 10:24:54 31.1 27.0-34.0 (pg) Final MCHC 03/20/2024 10:24:54 32.9 32.0-36.0 (g/dL) Final RDW 03/20/2024 10:24:54 12.7 11.5-15.5 (%) Final Platelets 03/20/2024 10:24:54 218 140-400 (K /uL) Final MPV 03/20/2024 10:24:54 10.1 6.6-11.1 ( fL) Final Nucleated erythrocytes/100 leukocytes [Ratio] in Blood by Automated count 03/20/2024 10:24:54 0 <=0 (/100 WBCs) Fi [facility] Performing Location [facility] - [address] [facility] [address]
--- OUTSIDE RECORDS SUMMARY | 2024-03-27 19:09 | External Medical Summary | Summary of Care ---
Author Name Unknown Organization [facility] Address [address] [place] [address] Phone [phone] Care Team Providers Care [employer] Principal Name Role Phone Champ Richards MD Primary Care Provider [phone] Reason for Visit * Reason Comments Outpatient Testing Encounter Details Date Type Department Care Team (Late st Contact Info) Description 03/11/2024 7:10 AM EDT Laboratory Laboratory, [facility] [address] [place] [phone] [facility] [address] [place] [address] Morbid obesity due to excess calories (HCC); Body mass index (BMI) of 40.0 to 44.9 in adult ([facility]); Type 2 diabetes mellitus with hemoglobin A1c goal of less than 7.0% ([facility]); Hypothyroidism, unspecified type Allergies No known active allergiesdocumented as of this encounter (statuses as of 03/11/2024) Medications Medication Sig Dispensed Refills Start Date End Date Status Clindamycin Phosphate 1 % lotion apply to AFFECTED AREAS OF THE TRUNK DAILY AFTER BATHING DIRECTED 0 10/21/2018 Active acetaminophen (TYLENOL) 500 MG TabletIndications:Spi nal osteophytosis 1-2 tabs twice daily as needed 100 Tab 11/20/2018 Active Meloxicam 7.5 MG TabletIndications:Art hralgia Take 1 Tab by mouth daily. for pain. 90 Tab 1 01/23/2020 Active Glucose Blood (ONETOUCH VERIO) STRPIndications:Diabe edson mellitus, new onset (HCC) Use up to 3 times a day E11.9 100 Strip 11 01/23/2020 Active Blood Glucose Monitoring Suppl (ONETOUCH VERIO) w/Device KITIndications:Diabet es mellitus, new onset (HCC) Use up to 4 times a day E11.9 1 Kit 01/23/2020 Active Blood Glucose Monitoring Suppl (ONETOUCH VERIO FLEX SYSTEM) w/Device KIT Use as directed. Use up to 4 times a day E11.9 1 Kit 01/31/2020 Active Levonorgestrel-Ethiny l Estrad 0.15-30 MG-MCG Oral Tablet Take 1 Tablet by mouth in the morning. 11/14/2021 Active Cyclobenzaprine HCl 5 MG Oral Tablet (Flexeril)Indications :Acute pain of right shoulder,Trapezius muscle spasm Take by mouth 1 Tablet as needed in the morning AND 1 Tablet as needed at noon AND 1 Tablet as needed in the evening for Muscle spasms. 30 Tablet 12/02/2021 Active OneTouch Delica Plus [id number] Use as directed. Use up to 4 times a day E11.9 300 Each 3 05/11/2023 Active Levothyroxine Sodium 50 MCG Oral Tablet (Levoxyl) take 1 tablet by mouth every morning AT LEAST 30 MINUTES PRIOR TO BREAKFAST/OTHER MEDS 90 Tablet 3 06/12/2023 Active oxyBUTYnin Chloride ER 10 MG Oral Tablet Extended Release 24 Hour Take 1 Tablet by mouth in the morning. Do not cut, crush or chew. 30 Tablet 11 07/09/2023 Active Venlafaxine HCl ER 37.5 MG Oral Capsule Extended Release 24 Hour (Effexor XR) Take 1 Capsule by mouth in the morning. Do not cut, crush or chew. 30 Capsule 5 07/09/2023 Active Fenofibrate 160 MG Oral Tablet (Lofibra) take 1 tablet by mouth every morning with A MEAL 30 Tablet 5 07/26/2023 Active Semaglutide (2 MG/DOSE) 8 MG/3ML Subcutaneous Solution Pen-injector (Ozempic)Indications: Type 2 diabetes mellitus with hemoglobin A1c goal of less than 7.0% (HCC) Inject 2 mg under the skin once a week. 12 mL 1 09/07/2023 Active metFORMIN HCl ER 500 MG Oral Tablet Extended Release 24 Hour (Glucophage XR) TAKE 2 TABLETS BY MOUTH TWICE A DAY WITH FOOD 360 Tablet 1 01/04/2024 Active documented as of this encounter (statuses as of 03/11/2024) Active Problems Problem Noted Date Diagnosed Date Type 2 diabetes mellitus wit h hemoglobin A1c goal of less than 7.0% 05/25/2022 Hypothyroidism 05/25/2022 Hypertriglyceridemia 05/25/2022 S/P carpal tunnel release 12/02/2021 Tear of medial meniscus of knee 12/02/2021 Transient synovitis, right knee 10/17/2021 Body mass index (BMI) of 40.0 to 44.9 in adult 0 12/06/2020 Overview: Per Obesity protocol - Per Obesity protocol - Hidradenitis suppurativa 11/20/2018 Overview: Under breasts Morbid obesity due to excess calories 11/20/2018 Spinal osteophytosis 02/13/2017 Hepatic steatosis 01/09/2017 Social anxiety disorder 05/15/2014 History of PCOS 11/30/2003 Panic disorder 11/30/2003 documented as of this encounter (statuses as of 03/11/2024) Resolved Problems Problem Noted Date Diagnosed Date Resolved Date Gestational diabetes 12/02/2021 022 Body mass index (BMI) of 45. 0 to 49.9 in adult 04/07/2019 12/09/2020 Overview: Per Obesity protocol - Body mass index (BMI) of 40. 0 to 44.9 in adult 12/02/2018 04/10/2019 Overview: Per Obesity protocol #1 Pap smear for cervical cancer screening 11/20/2018 05/25/2022 Overview: Neg 10/14>pap neg,hpv neg 12/13 Diabetes mellitus, new onset 06/21/2017 05/25/2022 Overview: 06/12 a1c 5.9 Carpal tunnel syndrome 04/13/201705/25 Numbness and tingling of right arm 04/13/2017 11/20/2018 Pre-op examination 04/13/2017 7 Non-cardiac chest pain 01/09/201702/13 BMI 40.0-44.9, adult 01/09/2017 017 Overview: bmi= 40.19 01/09/17 Viral URI with cough 08/04/2014 017 Obesity, Class II, BMI 35-39 .9, isolated (see actual BMI) 05/15/2014 01/09/2017 Overview: bmi= 38.28 05/15/14 Adjustment disorder with depressed mood 05/15/2014 11/20/2018 Acute pharyngitis 01/16/2014 01/09/2017 Strep sore throat 01/16/2014 01/09/2017 Obesity, Class II, BMI 35-39 .9, isolated (see actual BMI) 10/07/2013 01/09/2017 Overview: BMI= 39.45 10/07/13 Chest pain 10/07/2013 01/09/2017 Other chest pain 09/13/2013 01/09/2017 Influenza A 09/13/2013 02/13/2017 Prolonged QT interval 09/13/20132016 Wrist pain, right 03/24/2013 01/09/2017 Obesity, Class II, BMI 35-39 .9, isolated (see actual BMI) 10/01/2012 01/09/2017 Overview: bmi= 37.30 10/01/12 History of tobacco use 10/01/201205/25 Headache 10/01/2012 01/09/2017 Overview: ICD-10 update of inactive term Myalgia and myositis 10/01/2012 017 Influenza-like illness 10/01/201201/09 OBESITY, BMI= 38.43 10/04/10 10/04/2010 0 01/09/2017 HYPERGLYCEMIA 10/04/2010 01/09/2017 Abdominal pain, generalized 05/12/2010 01/09/2017 Diarrhea 05/12/2010 01/09/2017 Obesity, Class II, BMI 35-39 .9, isolated (see actual BMI) 02/07/2010 10/04/2010 Overview: Per Obesity Protocol, #19 Abnormal results of liver function studies 10/26/2009 01/09/2017 Elevated blood pressure, situational 10/14/2009 01/09/2017 Myalgia and myositis 02/16/2009 013 Palpitations 08/22/2006 02/13/2017 DYSFUNCT EUSTACHIAN TUBE 07/16/2006 ACUTE STRESS 06/15/2006 01/09/2017 ADVANCE DIRECTIVE INFORMATION 05/22/2005 01/09/2017 Overview: No, Advance Directive brochure given to patient. SLOW TRANSIT CONSTIPATION/OBSTIPATION 03/29/2005 01/09/2017 Chest pain 12/09/2004 01/30/2006 Sebaceous cyst 12/09/2004 02/13/2017 Acute bronchitis, antibiotics not indicated 07/20/2004 01/30/2006 Acute nasopharyngitis 07/20/20042005 Cough 07/20/2004 01/30/2006 Tobacco use disorder 07/20/2004 013 Candidal vulvovaginitis 04/04/2004 0601/2006 Irritable bowel syndrome 11/30/2003 Esophageal reflux 11/30/2003 11/20/2018 Major depressive disorder, r ecurrent episode, moderate 11/30/2003 05/15/2014 Allergic rhinitis 11/30/2003 02/14/2017 ACNE VULGARIS 11/30/2003 01/09/2017 GANGLION CYST, LEFT WRIST 11/30/2003 Esophageal reflux 01/30/2006 Polycystic ovaries 6 Absence of menstruation 12/25 Irritable bowel syndrome 07/2004 documented as of this encounter (statuses as of 03/11/2024) Immunizations Name Administration Dates Next Due COVID-19 mRNA, LNP-s, No Pre serve, 2-Dose Series (Pfizer) 09/14/2020,08/18/2020 PPD 12/26/2006 Pneumococcal Polysaccharide PPV23 (Pneumovax) 12/15/2008(Deferred: Patient Refused) Seasonal Influenza, PF, 6 M & above, IM , (FluLaval or Fluzone) 06/13/2017 Seasonal Influenza, Quadriva lent, No Preserve, IM 05/27/2020,06/27/2018 Seasonal Influenza, Split, I IV3, With Preserve, Inj 06/10/2013,05/31/2010,06/27/2009,06/27 TD - Tetanus/Diptheria (ADULT) 11/25/2004 TDAP (age 10 and older)(Boostrix) 10/15/2015 documented as of this encounter Social History Tobacco Use Types Packs/Day Years Used Date Smoking Tobacco: Former Cigarettes 0.5 10 0 09/07/2007 - 09/07/2017 Smokeless Tobacco: Never Comments:began at age 18 Alcohol Use Standard Drinks/Week Comments No 0 (1 standard drink = 0.6 oz pur e alcohol) AUDIT-C Answer Date Recorded Frequency of Alcohol Consumption Never 11/20/2018 Average Number of Drinks Not on file 019 Frequency of Binge Drinking Not on file 10/26 PHQ-2 Answer Date Recorded PHQ Adult Total Score 0 02/01/2023 Hunger Vital Sign Answer Date Recorded Within the past 12 months, y ou worried that your food would run out before you got the money to buy more. Never true 02/02/20 23 Within the past 12 months, t he food you bought just didn't last and you didn't have money to get more. Never true 02/01/2023 Utilities Answer Date Recorded Do you have trouble paying y our heating, water, or electric bill? (Adult - for ages 18 years and over) Not on file 02/12/2024 Is your family able to pay t he heat, water, or electric bill? (Household - for ages 0-17 years) Not on file 02/12/2024 Does your family have access to good internet? (Household - for ages 0-17 years) Not on file 02/12/2024 Social Connections Answer Date Recorded How often do you feel lonely or isolated from those around you? (Adult - for ages 18 years and over) Not on file 02/12/2024 Sex and Gender Information Value Date Recorded Sex Assigned at Not on file Gender Identity Not on file Sexual Orientation Not on file Job Start Date Occupation Industry Not on file Not on file Not on file documented as of this encounter Plan of Treatment Upcoming Encounters Date Type Department Care Team (Late st Contact Info) Description 03/11/2024 7:45 AM EDT Imaging Radiology [facility] [address] [facility] [place] [address] [place] [address] Arrived 03/20/2024 9:40 AM EDT Office Visit [facility] [address] [facility] [address] [facility] [address] [facility] [address] Pending Results Name Type Priority Associated Diagnoses Date /Time LIPID PANEL WITH DIRECT LDL IF TG IS HIGH Lab Routine Morbid obesity due to excess calories (HCC) 03/11/2024 7:07 AM EDT HEMOGLOBIN A1C Lab Routine Body mass index (BMI) of 40.0 to 44.9 in adult (HCC) Type 2 diabetes mellitus with hemoglobin A1c goal of less than 7.0% (HCC) Morbid obesity due to excess calories (HCC) 03/11/2024 7:07 AM EDT COMPREHENSIVE METABOLIC PANEL Lab Routine Body mass index (BMI) of 40.0 to 44.9 in adult (HCC) Type 2 diabetes mellitus with hemoglobin A1c goal of less than 7.0% (HCC) Morbid obesity due to excess calories (HCC) 03/11/2024 7:07 AM EDT TSH WITH FREE T4 IF INDICATED Lab Routine Hypothyroidism, unspecified type 03/11/2024 7:07 AM EDT ALBUMIN / CREATININE RATIO, URINE Lab Routine Type 2 diabetes mellitus with hemoglobin A1c goal of less than 7.0% (HCC) 03/11/2024 7:19 AM EDT Health Maintenance Due Date Last Done Comments Pneumococcal Vaccine: Pediatrics (0 to 5 Years) and At-Risk Patients (6 to 64 Years) (1 of 2 - PCV) 01/05/1986 Hepatitis B Vaccine (1 of 3 - 19+ 3-dose series) 01/05/1999 PAP SMEAR-ANNUAL AGES 18-100 12/17/2019, 10/09/2017, 05/08/2016, Additional history exists B-12 03/29/2021 03/29/2020 COVID-19 Vaccine (3 - 2022-24 season) 2023 09/14/2020, 08/18/2020 Albumin/Creatinine Ratio 05/19/2023 05/19/2022, 08/0 10/2019 Diabetic Foot Exam 05/25/2023 05/25/2022, 0 01/26/2021, 03/06/2019 HbA1c 01/07/2024 07/09/2023, 3 , 01/23/2023, Additional history exists Diabetic Eye Exam 01/14/2024 01/13/2023, 06/24/2020 Depression Screening 02/02/2024 02/01/2023 Mammogram 04/13/2024 04/13/2023, 08/0 12/2021, 03/30/2021 Influenza Vaccine (FLU shot) (#1) 2024 05/27/2020, 06/27/2018, 06/13/2017, Additional history exists GFR 07/09/2024 07/09/2023, 04/29, 05/19/2022, Additional history exists TSH 07/09/2024 07/09/2023, 04/29, 01/23/2023, Additional history exists DTaP,Tdap,and Td Vaccines (2 - Td or Tdap) 10/15/2025 10/15/2015, 11/25/2004 Lipid Panel 01/24/2028 01/23/2023, 06/0 09/2020, 03/29/2020, Additional history exists Hepatitis C Screening Completed 07/09/2023 HPV (Gardasil) Vaccine Aged Out No lo nger eligible based on patient's age to complete this topic MENINGOCOCCAL (MENACTRA/MENVEO) Aged Out No longer eligible based on patient's age to complete this topic documented as of this encounter Medical Devices Not on filedocumented as of this encounter Visit Diagnoses Diagnosis Morbid obesity due to excess calories (HCC) Body mass index (BMI) of 40.0 to 44.9 in adult (HCC) Type 2 diabetes mellitus with hemoglobin A1c goal of less than 7.0% (HCC) Hypothyroidism, unspecified type documented in this encounter Care Teams [employer] Principal Relationship Specialty Start Date End Date Champ Richards MD [address], [place] [id number] PCP - General Internal Medicine 05/24/22 documented as of this encounter
--- OUTSIDE RECORDS SUMMARY | 2024-03-27 19:09 | External Medical Summary | Summary of Care ---
Author Name Unknown Organization [facility] Address [address] [place] [address] Phone [phone] Care Team Providers Care Bag Repairer Name Role Phone Champ Richards MD Primary Care Provider [phone] Reason for Visit * Reason Comments Outpatient Testing Encounter Details Date Type Department Care Team (Late st Contact Info) Description 03/20/2024 10:20 AM EDT Laboratory Laboratory, [place] [address] [place] [address] [place] [address] [place], [place] [id number] Dysmenorrhea Allergies No known active allergiesdocumented as of this encounter (statuses as of 03/20/2024) Medications Medication Sig Dispensed Refills Start Date End Date Status Clindamycin Phosphate 1 % lotion apply to AFFECTED AREAS OF THE TRUNK DAILY AFTER BATHING DIRECTED 0 10/21/2018 Active acetaminophen (TYLENOL) 500 MG TabletIndications:S baljit osteophytosis 1-2 tabs twice daily as needed 100 Tab 11/20/2018 Active Meloxicam 7.5 MG TabletIndications:A rthralgia Take 1 Tab by mouth daily. for pain. 90 Tab 1 01/23/2020 Active Glucose Blood (ONETOUCH VERIO) STRPIndications:Debbie betes mellitus, new onset (HCC) Use up to 3 times a day E11.9 100 Strip 11 01/23/2020 Active Additional Information Patient not taking.Reported on 03/20/2024 Blood Glucose Monitoring Suppl (ONETOUCH VERIO) w/Device KITIndications:Diab etes mellitus, new onset (HCC) Use up to 4 times a day E11.9 1 Kit 01/23/2020 Active Additional Information Patient not taking.Reported on 03/20/2024 Blood Glucose Monitoring Suppl ([employer] VERIO FLEX SYSTEM) w/Device KIT Use as directed. Use up to 4 times a day E11.9 1 Kit 01/31/2020 Active Additional Information Patient not taking.Reported on 03/20/2024 Levonorgestrel-Ethi nyl Estrad 0.15-30 MG-MCG Oral Tablet Take 1 Tablet by mouth in the morning. 11/14/2021 Active Cyclobenzaprine HCl 5 MG Oral Tablet (Flexeril)Indicatio ns:Acute pain of right shoulder,Trapezius muscle spasm Take by mouth 1 Tablet as needed in the morning AND 1 Tablet as needed at noon AND 1 Tablet as needed in the evening for Muscle spasms. 30 Tablet 12/02/2021 Active Additional Information Patient not taking.Reported on 03/20/2024 BRAINDIGIT Delica Plus [id number] Use as directed. Use up to 4 times a day E11.9 300 Each 3 05/11/2023 Active Additional Information Patient not taking.Reported on 03/20/2024 Levothyroxine Sodium 50 MCG Oral Tablet (Levoxyl) [...] (2 MG/DOSE) 8 MG/3ML Subcutaneous Solution Pen-injector (Ozempic)Indication s:Type 2 diabetes mellitus with hemoglobin A1c goal of less than 7.0% (HCC) Inject 2 mg under the skin once a week. 12 mL 1 09/07/2023 Active metFORMIN HCl ER 500 MG Oral Tablet Extended Release 24 Hour (Glucophage XR) TAKE 2 TABLETS BY MOUTH TWICE A DAY WITH FOOD 360 Tablet 1 01/04/2024 Active Additional Information Patient taking differently: Oral Daily(AM), (No instructions reported), Reported on 03/20/2024 documented as of this encounter (statuses as of 03/20/2024) Active Problems Problem Noted Date Diagnosed Date Type 2 diabetes mellitus wit h hemoglobin A1c goal of less than 7.0% 05/25/2022 Hypothyroidism 05/25/2022 Hypertriglyceridemia 05/25/2022 S/P carpal tunnel release 12/02/2021 Tear of medial meniscus of knee 12/02/2021 Transient synovitis, right knee 10/17/2021 Hidradenitis suppurativa 11/20/2018 Overview: Under breasts Spinal osteophytosis 02/13/2017 Hepatic steatosis 01/09/2017 Social anxiety disorder 05/15/2014 History of PCOS 11/30/2003 Panic disorder 11/30/2003 documented as of this encounter (statuses as of 03/20/2024) Resolved Problems Problem Noted Date Diagnosed Date Resolved Date Gestational diabetes 12/02/2021 022 Body mass index (BMI) of 40. 0 to 44.9 in adult 12/06/2020 03/20/2024 Overview: Per Obesity protocol - Per Obesity protocol - Body mass index (BMI) of 45. 0 to 49.9 in adult 04/07/2019 12/09/2020 Overview: Per Obesity protocol - Body mass index (BMI) of 40. 0 to 44.9 in adult 12/02/2018 04/10/2019 Overview: Per Obesity protocol #1 Pap smear for cervical cancer screening 11/20/2018 05/25/2022 Overview: Neg 2/18>pap neg,hpv neg 12/13 Morbid obesity due to excess calories 11/20/2018 03/20/2024 Diabetes mellitus, new onset 06/21/2017 05/25/2022 Overview: [...] use disorder 07/20/2004 013 Candidal vulvovaginitis 04/04/2004 06/01/2006 Irritable bowel syndrome 11/30/2003 Esophageal reflux 11/30/2003 11/20/2018 Major depressive disorder, r ecurrent episode, moderate 11/30/2003 05/15/2014 Allergic rhinitis 11/30/2003 02/14/2017 ACNE VULGARIS 11/30/2003 01/09/2017 GANGLION CYST, LEFT WRIST 11/30/2003 Esophageal reflux 01/30/2006 Polycystic ovaries 6 Absence of menstruation 12/25 Irritable bowel syndrome 07/2004 documented as of this encounter (statuses as of 03/20/2024) Immunizations Name Administration Dates Next Due COVID-19 mRNA, LNP-s, No Pre serve, 2-Dose Series ([employer]) 09/14/2020,08/18/2020 PPD 12/26/2006 Pneumococcal Polysaccharide PPV23 (Pneumovax) [...] Care Team (Late st Contact Info) Description 06/10/2024 8:40 AM EDT [facility] [address] [place] [phone] Radha Smith, [address] [place] [address] 09/22/2024 7:40 AM EST Office Visit [facility] [address] [place] [phone] Champ Richards MD [address], [place] [phone] Pending Results Name Type Priority Associated Diagnoses Date /Time CBC WITH WBC DIFFERENTIAL AND ANEMIA REFLEX WORKUP Lab Routine Dysmenorrhea 03/20/2024 10:24 AM EDT ANEMIA CBC Lab Routine Dysmenorrhea 03/20/2024 10:24 AM EDT DIFFERENTIAL, AUTOMATED Lab Routine Dysmenorrhea 03/20/2024 10:24 AM EDT ANEMIA REFLEX CHEMISTRY HOLD Lab Routine Dysmenorrhea 03/20/2024 10:24 AM EDT Health Maintenance Due Date Last Done Comments Pneumococcal Vaccine: Pediatrics (0 to 5 Years) and At-Risk Patients (6 to 64 Years) (1 of 2 - PCV) 01/05/1986 Hepatitis B Vaccine (1 of 3 - 19+ 3-dose series) 01/05/1999 PAP SMEAR-ANNUAL AGES 18-100 12/17/2019, 10/09/2017, 05/08/2016, Additional history exists B-12 03/29/2021 03/29/2020 COVID-19 Vaccine (3 - 2022- season) 2023 09/14/2020, 08/18/2020 Diabetic Foot Exam 05/25/2023 05/25/2022, 0 01/26/2021, 03/06/2019 Diabetic Eye Exam 01/14/2024 01/13/2023, 06/24/2020 Depression Screening 02/02/2024 02/01/2023 Mammogram 04/13/2024 04/13/2023, 08/12/2021, 03/30/2021 Influenza Vaccine (FLU shot) (#1) 2024 05/27/2020, 06/27/2018, 06/13/2017, Additional history exists HbA1c 09/11/2024 03/11/2024, 06/27, 05/26/2023, Additional history exists Albumin/Creatinine Ratio 03/11/2025 024, 05/19/2022, 03/29/2020 GFR 03/11/2025 03/11/2024, 06/27, 05/26/2023, Additional history exists TSH 03/11/2025 03/11/2024, 06/27, 05/26/2023, Additional history exists DTaP,Tdap,and Td Vaccines (2 - Td or Tdap) 10/15/2025 10/15/2015, 11/25/2004 Lipid Panel 03/11/2029 03/11/2024, 12/27, 01/26/2021, Additional history exists Hepatitis C Screening Completed 07/09/2023 HPV (Gardasil) Vaccine Aged Out No lo nger eligible based on patient's age to complete this topic MENINGOCOCCAL (MENACTRA/MENVEO) Aged Out No longer eligible based on patient's age to complete this topic documented as of this encounter Medical Devices Not on filedocumented as of this encounter Visit Diagnoses Diagnosis Dysmenorrhea documented in this encounter Care Teams Bag Repairer Relationship Specialty Start Date End Date Champ Richards MD [address] [place] [facility] [place] [address] PCP - General Internal Medicine 05/24/22 documented as of this encounter
--- OUTSIDE RECORDS SUMMARY | 2024-03-27 19:09 | External Medical Summary ---
Author Name Unknown Address Unknown Organization [id number]:[facility] [place] [address] [place] [address] Laboratory Report Ordering Provider Test Date Status YESI LR 03/11/2024 07:19:23 Final Normal: <30 mg/g creatinine< br/>High: 30-300 mg/g creatinine
Very High: >300 mg/g creatinine
Nephrotic: >2200 mg/g creatinine Observation Date Value Abnormality Reference (Units ) Status Albumin, Urine 03/11/2024 07:19:23 90.27 (mg/dL) Final Creatinine, Urine 03/11/2024 07:19:23 206 (mg/dL) Final Albumin/Creatinine [Mass Ratio] in Urine 03/11/2024 07:19:23 438 Above high normal <30 (mg/g Creat) Final Performing Location [facility] [place] - [address] [place] [address]
--- OUTSIDE RECORDS SUMMARY | 2024-03-27 19:09 | External Medical Summary | Summary of Care ---
Author Name Unknown Organization [facility] Address [address] [place] [address] Phone [phone] Care Team Providers Care Transmission Calibration Engineer Name Role Phone Champ Richards MD Primary Care Provider [phone] Reason for Referral * Evaluate & Treat - Unlimited Visits (Within 10 days (routine)) - Authorized Specialty Diagnoses / Procedures Referred By Contac t Referred To Contact Sleep Medicine / Sleep Disorders Diagnoses MARTHA (obstructive sleep apnea) Champ Richards MD [address] [place] [address] Referral ID Status Reason Start Date Expiration Date Visits Requested Visits Authorized [id number] Authorized Specialty Services Required 03/20/2024 2 2 Question Answer GS CAD SLEEP MED ADULT REFERRAL Sleep Apnea Testing and Management Does the patient snore and/or gasp at night or has been told they stop breathing at night? Yes, document patient's symptoms in progress note Referral Priority Within 10 days (routine) Where should this appointment be scheduled? [facility] Reason for Visit * Reason Comments Physical-Exam Wellness for work Encounter Details Date Type Department Care Team (Late st Contact Info) Description 03/20/2024 9:40 AM EDT Office Visit [facility] [address] [facility] [place] [address] Champ Richards MD [address] [place] [address] Well adult exam*; Type 2 diabetes mellitus with hemoglobin A1c goal of less than 7.0% (HCC); MARTHA (obstructive sleep apnea); Dysmenorrhea; Social anxiety disorder; Hypertriglyceridemia; Hypothyroidism, unspecified type; Encounter for screening mammogram for breast cancer; Physical exam, annual Allergies No known active allergiesdocumented as of [...] 90 Tab 1 01/23/2020 Active Glucose Blood (LXSNUCH VERIO) STRPIndications:Debbie betes mellitus, new onset (HCC) Use up to 3 times a day E11.9 100 Strip 11 01/23/2020 Active Additional Information Patient not taking.Reported on 03/20/2024 Blood Glucose Monitoring Suppl (eco4cloudTOUCH VERIO) w/Device KITIndications:Diab etes mellitus, new onset (HCC) Use up to 4 times a day E11.9 1 Kit 01/23/2020 Active Additional Information Patient not taking.Reported on 03/20/2024 Blood Glucose Monitoring Suppl (LXSNUCH VERIO FLEX SYSTEM) w/Device KIT Use as [...] Additional Information Patient not taking.Reported on 03/20/2024 VR1Touch Delica Plus [id number] Use as directed. Use up to 4 [...] 05/25/2022 Overview: Neg 10/14>pap neg,hpv neg 12/13 Morbid obesity due to [...] 0 09/07/2007 - 09/07/2017 Smokeless Tobacco: Never Tobacco Cessation:Counseling Given: Not Answered Comments:began at age 18 Alcohol Use Standard [...] on file documented as of this encounter Last Filed Vital Signs Vital Sign Reading Time Taken Comments Blood Pressure 112/74 03/20/2024 9:36 AM EDT Pulse 94 03/20/2024 9:36 AM EDT Temperature 36.8 C (98.2 F) 03/20/2024 9:36 AM ED T Respiratory Rate 17 03/20/2024 9:36 AM EDT Oxygen Saturation 99% 03/20/2024 9:36 AM EDT Inhaled Oxygen Concentration - - Weight 85 kg (187 lb 6.4 oz) 03/20/2024 9:36 AM EDT Height 152.4 cm (5') 03/20/2024 9:36 AM EDT Body Mass Index 36.6 03/20/2024 9:36 AM EDT documented in this encounter Progress Notes * Champ Richards MD - 03/20/2024 9:48 AM EDT Ayo Patel is a 44 year old female. Chief Complaint Patient presents with Physical-Exam Wellness for work HPI: Here for annual check up Colposcopy , in aug for HPV, by [facility]OLOG[facility] EQUIPMENT REPAIRER Also started oral BC Mammogram - annually Type 2 Dm , stable Hba1c less than 6 Will decreased metformin to 500 mg ER daily Keep same dose ozempic Eye exam yearly Hyperlipidemia, hypothyroidism Taking medication as prescribed, see med list. No medication side effects noted. Advised patient tokeep healthy life style, regular exercise with good diet, kait. low sodium diet. And also check BP at home too. Denies associated chest discomfort, chest heaviness, chest pressure, chest tightness, edema, palpitations and shortness of breath. Exercise - core strength Also for urinary incontinence Having frequent long period , f/u with [facility]OLOG[facility] EQUIPMENT REPAIRER Currently on oral BC but seems not helping Advised to contact [facility]EOROLOGICAL EQUIPMENT REPAIRER Anxiety d/o , stable, taking med Mild fatigue, brain fog occ Known mild MARTHA, not on CPAP PMH: Patient Active Problem List Diagnosis History of PCOS Panic disorder Social anxiety disorder Hepatic steatosis Spinal osteophytosis Hidradenitis suppurativa S/P carpal tunnel release Transient synovitis, right knee Tear of medial meniscus of knee Type 2 diabetes mellitus with hemoglobin A1c goal of less than 7.0% (HCC) Hypothyroidism Hypertriglyceridemia Current Outpatient Medications Medication Sig Dispense Refill acetaminophen (TYLENOL) 500 MG Tablet 1-2 tabs twice daily as needed 100 Tab 0 Meloxicam 7.5 MG Tablet Take 1 Tab by mouth daily. for pain. 90 Tab 1 Levonorgestrel-Ethinyl Estrad 0.15-30 MG-MCG Oral Tablet Take 1 Tablet by mouth in the morning. Levothyroxine Sodium 50 MCG Oral Tablet (Levoxyl) take 1 tablet by mouth every morning AT LEAST 30 MINUTES PRIOR TO BREAKFAST/OTHER MEDS 90 Tablet 3 oxyBUTYnin Chloride ER 10 MG Oral Tablet Extended Release 24 Hour Take 1 Tablet by mouth in the morning. Do not cut, crush or chew. 30 Tablet 11 Venlafaxine HCl ER 37.5 MG Oral Capsule Extended Release 24 Hour (Effexor XR) Take 1 Capsule by mouth in the morning. Do not cut, crush or chew. 30 Capsule 5 Fenofibrate 160 MG Oral Tablet (Lofibra) take 1 tablet by mouth every morning with A MEAL 30 Tablet5 Semaglutide (2 MG/DOSE) 8 MG/3ML Subcutaneous Solution Pen-injector (Ozempic) Inject 2 mg under theskin once a week. 12 mL 1 metFORMIN HCl ER 500 MG Oral Tablet Extended Release 24 Hour (Glucophage XR) TAKE 2 TABLETS BY MOUTH TWICE A DAY WITH FOOD (Patient taking differently: Take by mouth daily.) 360 Tablet 1 Clindamycin Phosphate 1 % lotion apply to AFFECTED AREAS OF THE TRUNK DAILY AFTER BATHING DIRECTED (Patient not taking: Reported on 03/20/2024) 0 Glucose Blood (LXSNUCH VERIO) STRP Use up to 3 times a day E11.9 (Patient not taking: Reported on 03/20/2024) 100 Strip 11 Blood Glucose Monitoring Suppl (LXSNUCH VERIO) w/Device KIT Use up to 4 times a day E11.9 (Patientnot taking: Reported on 03/20/2024) 1 Kit 0 Blood Glucose Monitoring Suppl (Meridium VERIO FLEX SYSTEM) w/Device KIT Use as directed. Use up to4 times a day E11.9 (Patient not taking: Reported on 03/20/2024) 1 Kit 0 Cyclobenzaprine HCl 5 MG Oral Tablet (Flexeril) Take by mouth 1 Tablet as needed in the morning AND1 Tablet as needed at noon AND 1 Tablet as needed in the evening for Muscle spasms. (Patient not taking: Reported on 03/20/2024) 30 Tablet 0 OneTouch Delica Plus [id number] Use as directed. Use up to 4 times a day E11.9 (Patient not taking: Reported on 03/20/2024) 300 Each 3 No current facility-administered medications for this visit. Past Medical History: Diagnosis Date Abnormal Papanicolaou smear of cervix and cervical HPV 03/28 Absence of menstruation Esophageal reflux Fatty liver IBS (irritable bowel syndrome) Irritable bowel syndrome Major depressive disorder, recurrent episode, moderate (HCC) Migraine without aura Panic disorder 09/30 Polycystic ovaries Streptococcal septicemia(038.0) ([facility]) 08/29 hospitalized Past Surgical History: Procedure Laterality Date CARPAL TUNNEL SURGERY Right 2016 DrSeb COLPSCPY CERVIX W/LOOP ELECT 04/28 DECOMPRESS HAND/DIGIT,INJECT INJURY Left DENTAL SURGERY PROCEDURE NEC age 24 x 3 EGD, FLEXIBLE, DIAGNOSTIC 03/23/2014 mild gastritis & duodenitis/done @ [facility] LAPAROSCOPY, CHOLECYSTECTOMY WITH CHOLANGIOGRAPHY [id number] [facility] lap tiara w cgram [facility] 04/15/14 [facility] REMOVE GALLBLADDER THIGH OR KNEE SURGERY NEC 01/1994 OCD with bone graft -Rt knee Review of patient's allergies indicates: No Known Allergies Family History Problem Relation Name Age of Onset Cancer Mother lung, cervical Mental Disorder Mother depression Diabetes Father 2 Hypertension Other uncle paternal none Crohn's disease Other uncle paternal Heart Disorder Other none Stroke Other paternal - side none Colon cancer Other paternal - side Mental Disorder Grandmother (Maternal) schizophrenia-- strong in family Mental Disorder Sister depression Crohn's disease Uncle (Unspecified) Ovarian cancer Aunt (Unspecified) Uterine cancer Aunt (Unspecified) Other (cancer in fallopian tubes ) Aunt (Unspecified) Family Status Relation Status Mo Alive Fa Alive Sis Alive Ke Alive Ke Alive Other (Not Specified) Other (Not Specified) Other (Not Specified) MGMA (Not Specified) Sis (Not Specified) UNCLE (Not Specified) AUNT (Not Specified) Social History Socioeconomic History Marital status: Spouse name: Not on file Number of children: 2 Years of education: Not on file Highest education level: Not on file Occupational History 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 [facility] employer: [employer] [facility] education: [employer] Business service: no hobbies/interests: outside--camping, canoeing exercise: little diet: no jainism/yarsani: gnosticist marital status: - 06/29- 6 months later children: 2 gc: 0 ggc: 0 pets: Border collie, beagle/bulldog mix, cat things to improve: no Social Determinants of Health Financial Resource Strain: Not on file Food Insecurity: No Food Insecurity (02/01/2023) Hunger Vital Sign Worried About Running Out of Food in the Last Year: Never true Ran Out of Food in the Last Year: Never true Transportation Needs: Not on file Social Connections: Unknown (02/12/2024) Social Connections How often do you feel lonely or isolated from those around you? (Adult - for ages 18 years and over): Not on file Housing Stability: Not on file Review of Systems Constitutional: Negative for activity change, appetite change, chills, diaphoresis, fatigue, fever and unexpected weight change. Eyes: Negative for visual disturbance. Respiratory: Negative for cough, chest tightness, shortness of breath and wheezing. Cardiovascular: Negative for chest pain, palpitations and leg swelling. Gastrointestinal: Positive for nausea (randomly). Negative for abdominal distention, abdominal pain, constipation, diarrhea and vomiting. Endocrine: Negative. Genitourinary: Positive for menstrual problem and urgency. Neurological: Negative for dizziness, light-headedness and numbness. Psychiatric/Behavioral: Negative for agitation and behavioral problems. The patient is nervous/anxious. Objective BP 112/74 | Pulse 94 | Temp 36.8 C (98.2 F) | Resp 17 | Ht 1.524 m (5') | Wt 85 kg (187 lb 6.4 oz) | LMP 02/14/2024 | SpO2 99% | BMI 36.60 kg/m | BSA 1.9 m Physical Exam Constitutional: General: She is not in acute distress. Appearance: Normal appearance. She is obese. She is not ill-appearing, toxic- appearing or diaphoretic. HENT: Head: Normocephalic and atraumatic. Nose: Nose normal. Eyes: Extraocular Movements: Extraocular movements intact. Cardiovascular: Rate and Rhythm: Normal rate and regular rhythm. Pulses: Normal pulses. Heart sounds: Normal heart sounds. No murmur heard. Pulmonary: Effort: Pulmonary effort is normal. No respiratory distress. Breath sounds: Normal breath sounds. No stridor. No wheezing, rhonchi or rales. Chest: Chest wall: No tenderness. Musculoskeletal: Right lower leg: No edema. Left lower leg: No edema. Neurological: General: No focal deficit present. Mental Status: She is alert and oriented to person, place, and time. Cranial Nerves: Cranial nerve deficit present. Psychiatric: Behavior: Behavior normal. Comments: Mild anxiety ASSESSMENT/PLAN: Well adult exam (Primary) Type 2 diabetes mellitus with hemoglobin A1c goal of less than 7.0% (HCC) MARTHA (obstructive sleep apnea) - SLEEP MEDICINE REFERRAL OP Dysmenorrhea - CBC WITH WBC DIFFERENTIAL AND ANEMIA REFLEX WORKUP; Future; Expected date: 03/20/2024 Social anxiety disorder Hypertriglyceridemia Hypothyroidism, unspecified type Encounter for screening mammogram for breast cancer - MAMMOGRAM SCREENING DAYO BILATERAL; Future; Expected date: 04/14/2024 Physical exam, annual Follow Up: Return in about 6 months (around 09/20/2024) for Clinic Visit. | For: Clinic Visit Cut down metformin Cont other meds F/u with METEOROLOGICAL EQUIPMENT REPAIRER Mammo Fu with sleep medicine Discussed with patient: -HEALTH PROMOTION: Adequate sleep (8-10 hours/night), regular exercise, balanced diet, dental care,limiting sedentary activities (TV, computer, Internet) -MENTAL HEALTH: Discuss feelings with an someone that they can trust -INJURY PREVENTION: Driving Safety, Seat Belts, Sun Safety, No Weapons, Conflict Resolution, Personal Safety -SUBSTANCE ABUSE: Tobacco, Drugs, Alcohol Champ Richards MD documented in this encounter Nursing Notes * Lilly Arredondo LPN - 03/20/2024 9:42 AM EDT The patient has been properly identified by confirmation of name and date of . Chief Complaint Patient presents with Physical-Exam Wellness for work documented in this encounter Plan of Treatment Upcoming Encounters Date Type Department Care Team (Late st Contact Info) Description 06/10/2024 8:40 AM EDT Office [facility] [place] [address] [place] [address] Radha Smith DO [address] [place] [address] 09/22/2024 7:40 AM EST [address] [phone] Champ Richards MD [address] [place] [id number] Pending Results Name Type Priority Associated Diagnoses Date /Time CBC WITH WBC DIFFERENTIAL AND ANEMIA REFLEX WORKUP Lab Routine Dysmenorrhea 03/20/2024 10:24 AM EDT Scheduled Orders Name Type Priority Associated Diagnoses Orde r Schedule MAMMOGRAM SCREENING DAYO BILATERAL Medical Imaging Routine Encounter for screening mammogram for breast cancer Expected: 04/14/2024, Expires: 04/20/2025 CBC WITH WBC DIFFERENTIAL AND ANEMIA REFLEX WORKUP Lab Routine Dysmenorrhea Expected: 03/20/2024 (Approximate), Expires: 03/20/2025 Scheduled Referrals Name Type Priority Associated Diagnoses Orde r Schedule SLEEP MEDICINE REFERRAL OP Referral Within 10 days (routine) MARTHA (obstructive sleep apnea) Ordered: 03/20/2024 Health Maintenance Due Date Last Done Comments Pneumococcal Vaccine: Pediatrics (0 to 5 Years) and At-Risk Patients (6 to 64 Years) (1 of 2 - PCV) 01/05/1986 Hepatitis B Vaccine (1 of 3 - 19+ 3-dose series) 01/05/1999 PAP SMEAR-ANNUAL AGES 18-100 12/17/2019, 10/09/2017, 05/08/2016, Additional history exists B-12 03/29/2021 03/29/2020 COVID-19 Vaccine (2022- season) 2023 09/14/2020, 08/18/2020 Diabetic Foot Exam [...] as of this encounter Visit Diagnoses Diagnosis Well adult exam- Primary Routine general medical examination at a health care facility Type 2 diabetes mellitus with hemoglobin A1c goal of less than 7.0% (HCC) MARTHA (obstructive sleep apnea) Obstructive sleep apnea (adult) (pediatric) Dysmenorrhea Social anxiety disorder Social phobia Hypertriglyceridemia Pure hyperglyceridemia Hypothyroidism, unspecified type Encounter for screening mammogram for breast cancer Physical exam, annual Routine general medical examination at a health care facility documented in this encounter Care Teams Transmission Calibration Engineer Relationship Specialty Start Date End Date Champ Richards MD [address] [facility] [address] PCP - General Internal Medicine 05/24/22 documented as of this encounter"
--- OUTSIDE RECORDS SUMMARY | 2024-03-27 19:09 | External Medical Summary | Summary of Care ---
Author Name Unknown Organization [facility] Address [address] [place] [address] Phone [phone] Care Team Providers Care Automotive General Sales Manager Name Role Phone Champ Richards MD Primary Care Provider [phone] Reason for Visit * Reason Comments Outpatient Testing Encounter Details Date Type Department Care Team (Late st Contact Info) Description 03/11/2024 7:10 AM EDT Laboratory Laboratory, [facility] [address] [place] [id number] [facility] [address] [place] [address] Morbid obesity due to excess calories (HCC); Body mass index (BMI) of 40.0 to 44.9 in adult ([facility]); Type 2 diabetes mellitus with hemoglobin A1c goal of less than 7.0% ([facility]); Hypothyroidism, unspecified type Allergies No known active [...] 30 Tablet 12/02/2021 Active OneTouch Delica Plus [id number] Use as directed. Use up to 4 [...] 7:45 AM EDT Imaging Radiology [facility] [facility], [place] [address] [place] [address] Arrived 03/20/2024 9:40 AM EDT Office [facility] [address] [facility] [address] Champ [facility] [address] [facility] [address] Pending Results Name Type Priority [...] type documented in this encounter Care Teams Automotive General Sales Manager Relationship Specialty Start Date End Date Champ Richards MD [address] [place], [place] [id number] PCP - General Internal Medicine 05/24/22 documented as of this encounter
--- OUTSIDE RECORDS SUMMARY | 2024-03-27 19:09 | External Medical Summary ---
Author Name Unknown Address Unknown Organization [id number]:[facility] [address] - [address] [place] [address] Laboratory Report Ordering Provider Test Date Status YESI LR 03/11/2024 07:07:58 Final Observation Date Value Abnormality Reference (Units ) Status BUN 03/11/2024 07:07:58 10 6-20 (mg/dL) Final Creatinine 03/11/2024 07:07:58 0.8 0.5-1.0 (mg/dL) Final Glomerular filtration rate/1.73 sq M.predicted [Volume Rate/Area] in Serum, Plasma or Blood by Creatinine-based formula (CKD-EPI) 03/11/2024 07:07:58 >90 >=60 (mL/min) Final eGFR is calculated based on the CKD-EPI 2020 equation Sodium 03/11/2024 07:07:58 138 135-146 (m mol/L) Final Potassium 03/11/2024 07:07:58 4.4 3.5-5.1 (m mol/L) Final Cl 03/11/2024 07:07:58 101 98-107 (mm ol/L) Final CO2 03/11/2024 07:07:58 24 22-32 (mmo l/L) Final Anion gap 03/11/2024 07:07:58 13 7-15 (mmol /L) Final Glucose 03/11/2024 07:07:58 94 70-120 (mg /dL) Final Albumin 03/11/2024 07:07:58 4.3 3.8-5.0 (g /dL) Final AST (Aspartate aminotransferase) 03/11/2024 07:07:58 23 10-35 (U/L) Final Alk Phos 03/11/2024 07:07:58 44 35-130 (U/ L) Final Bilirubin, Total 03/11/2024 07:07:58 0.4 <=1 .2 (mg/dL) Final Calcium 03/11/2024 07:07:58 9.8 8.4-10.2 ( mg/dL) Final Protein 03/11/2024 07:07:58 7.1 6.0-8.3 (g /dL) Final ALT (Alanine aminotransferase) 03/11/2024 07:07:58 17 10-35 (U/L) Final Performing Location [facility] [place] [address] - [address] [facility] [address]
--- OUTSIDE RECORDS SUMMARY | 2024-03-27 19:09 | External Medical Summary ---
Author Name Unknown Address Unknown Organization [id number]:[facility] - [address] [facility] [address] Laboratory Report Ordering Provider Test Date Status YESI LR 03/11/2024 07:07:58 Final Observation Date Value Abnormality Reference (Units ) Status TSH 03/11/2024 07:07:58 2.99 0.27-4.20 (uIU/mL) Final Performing Location LAB[facility]AT[facility] - [address] [facility] [address]
--- OUTSIDE RECORDS SUMMARY | 2024-03-27 19:09 | External Medical Summary | Summary of Care ---
Author Name Unknown Organization [facility] Address [address] [place] [address] Phone [phone] Care Team Providers Care Library Cataloging Technician Name Role Phone Champ Richards MD Primary Care Provider [phone] Encounter Details Date Type Department Care Team (Late st Contact Info) Description 03/20/2024 Telephone [facility] [address] [place] [address] Champ Richards MD [address] [place] [address] Allergies No known active allergiesdocumented as of [...] taking.Reported on 03/20/2024 Blood Glucose Monitoring Suppl (Ornis VERIO FLEX SYSTEM) w/Device KIT Use as [...] Additional Information Patient not taking.Reported on 03/20/2024 Pretty in my Pocket (PRIMP)uch Delica Plus [id number] Use as directed. Use up to 4 [...] cervical cancer screening 11/20/2018 05/25/2022 Overview: Neg 2>pap neg,hpv neg 12/13 Morbid obesity due to [...] WRIST 11/30/2003 Esophageal reflux 01/30/2006 Polycystic ovaries Absence of menstruation 12/25 Irritable bowel syndrome [...] on file documented as of this encounter Miscellaneous Notes * Telephone Encounter - Sanna Verma OSA - 03/20/2024 2:37 PM EDT 03/20/24 Paperwork for Biometric Screening was successfully faxed to [phone]. Sent to [facility]. Placed a copy in the cube up front in the mail area. Called pt to p/u form at earliest convenience. documented in this encounter Plan of Treatment Upcoming Encounters Date Type Department Care Team (Late st Contact Info) Description 06/10/2024 8:40 AM EDT Office Visit [facility] [address] [place] [phone] Radha Smith DO [address] [place] [address] 09/22/2024 7:40 AM EST Office Visit [facility] [address] [place] [address] Champ Richards MD [address] [place] [address] Health Maintenance Due Date Last Done Comments [...] Not on filedocumented as of this encounter Care Teams Library Cataloging Technician Relationship Specialty Start Date End Date Champ Richards MD [address] [place] [address] PCP - General Internal Medicine 05/24/22 documented as of this encounter
--- OUTSIDE RECORDS SUMMARY | 2024-03-27 19:09 | External Medical Summary ---
Author Name Unknown Address Unknown Organization K01:[facility] [place] [address] [facility] [address] Laboratory Report Ordering Provider Test Date Status YESI LR 03/20/2024 10:24:54 Final Observation Date Value Abnormality Reference (Units ) Status SYNC LEUKOCYTES IN BLOOD BY AUTOMATED COUNT 03/20/2024 10:24:54 6.38 4.00-10.80 (K/uL) Final Segs 03/20/2024 10:24:54 49.5 40.0-75.0 (%) Final Lymphs % 03/20/2024 10:24:54 44.2 Above high normal 18.0-42.0 (%) Final Monos 03/20/2024 10:24:54 5.3 1.0-11.0 (%) Final Eosinophils 03/20/2024 10:24:54 0.5 0.0-6.0 (%) Final Basos 03/20/2024 10:24:54 0.3 0.0-2.0 (%) Final Immature Granulocyte, Percent 03/20/2024 10:24:54 0.2 0.0-2.0 (%) Final Absolute Segs 03/20/2024 10:24:54 3.16 1.80-7.70 (K/uL) Final Lymphs, absolute 03/20/2024 10:24:54 2.82 1.00-4.80 (K/ul) Final Monos, Abs 03/20/2024 10:24:54 0.34 0.00-1.10 (K/uL) Final Eos, Abs 03/20/2024 10:24:54 0.03 0.00-0.70 (K/uL) Final Basos, Abs 03/20/2024 10:24:54 0.02 0.00-0.20 (K/uL) Final Immature Granulocytes, Number 03/20/2024 10:24:54 0.01 0.00-0.20 (K/uL) Final Performing Location [facility] [place] [address] [facility] [address]
--- OUTSIDE RECORDS SUMMARY | 2024-03-27 19:09 | External Medical Summary | Summary of Care ---
Author Name Unknown Organization [facility] Address [address] [place] [address] Phone [phone] Care Team Providers Care Durable Medical Equipment Technician Name Role Phone Champ Richards MD Primary Care Provider Encounter Details Date Type Department Care Team (Late st Contact Info) Description 03/17/2024 Orders Only Outcomes Research Department [address], [place] [id number] Teresa Louise CHRA [facility] Research Other*[id number] Allergies No known active allergiesdocumented as of this encounter (statuses as of 03/17/2024) Medications Medication Sig Dispensed Refills Start Date [...] 30 Tablet 12/02/2021 Active OneTouch Delica Plus [id number] Use as directed. Use up to 4 [...] as of this encounter (statuses as of 03/17/2024) Active Problems Problem Noted Date Diagnosed Date [...] as of this encounter (statuses as of 03/17/2024) Resolved Problems Problem Noted Date Diagnosed Date [...] Tobacco use disorder 07/20/2004 013 Candidal vulvovaginitis 04/04/200401/2006 Irritable bowel syndrome 11/30/2003 Esophageal reflux 11/30/2003 11/20/2018 Major depressive disorder, r ecurrent episode, moderate 11/30/2003 05/15/2014 Allergic rhinitis 11/30/2003 02/14/2017 ACNE VULGARIS 11/30/2003 01/09/2017 GANGLION CYST, LEFT WRIST 11/30/2003 Esophageal reflux 01/30/2006 Polycystic ovaries 6 Absence of menstruation 12/25 Irritable bowel syndrome 07/2004 documented as of this encounter (statuses as of 03/17/2024) Immunizations Name Administration Dates Next Due COVID-19 [...] Description 03/20/2024 9:40 AM EDT Office Visit [facility] [address] [place] [place] [address] Champ Richards MD [address] [place] [address] Scheduled Orders Name Type Priority Associated Diagnoses Orde r Schedule MYCODE SUBSEQUENT ADULT Lab Routine My[facility] Research Other*[id number] Every 6 Months for 2 Occurrences starting 03/17/2024 until 04/06/2025 Health Maintenance Due Date Last Done Comments [...] 06/27, 05/26/2023, Additional history exists Albumin/Creatinine Ratio 03/11/202503/11/2 024, 05/19/2022, 03/29/2020 GFR 03/11/2025 03/11/2024, 06/27, [...] as of this encounter Visit Diagnoses Diagnosis [facility] Other*[id number] documented in this encounter Care Teams Durable Medical Equipment Technician Relationship Specialty Start Date End Date Champ Richards MD [address] [place] [address] PCP - General Internal Medicine 05/24/22 documented as of this encounter
--- OUTSIDE RECORDS SUMMARY | 2024-03-27 19:10 | External Medical Summary ---
Author Name Unknown Address Unknown Organization [id number]:LABORATORY [facility] [place] - [address] [place] [address] Laboratory Report Ordering Provider Test Date Status YESI LR 03/11/2024 07:07:58 Final Observation Date Value Abnormality Reference (Units ) Status Triglyceride 03/11/2024 07:07:58 233 Above high normal <=174 (mg/dL) Final Triglyceride Reference Range s (mg/dL):
<150 Acceptable
150-174 Borderline high
175-499 High
>=500 Very high Cholesterol 03/11/2024 07:07:58 183 <200 (mg /dL) Final Total Cholesterol Reference Ranges (mg/dL):
<200 Desirable
200-239 Borderline high
>=240 High HDL 03/11/2024 07:07:58 38 Below low normal >49 (mg/dL) Final HDL Cholesterol Reference Ra nges (mg/dL):
>=60 High (Desirable)
<50 Low (Undesirable) For Females
<40 Low (Undesirable) For Males NON-HDL CHOLESTEROL 03/11/2024 07:07:58 145 <=159 (mg/dL) Final Non-HDL Cholesterol Referenc e Range (mg/dL):
<100 Target level for high risk ASCVD patient
<130 Optimal for general population
130-159 Near optimal for general population
160-189 Borderline High
190-219 High
>=220 Very High Performing Location LAB[facility]ATORY [facility] - [address] [place] [address]
--- OUTSIDE RECORDS SUMMARY | 2024-03-27 19:10 | External Medical Summary ---
Author Name Unknown Address Unknown Organization [id number]:LABORATORY [facility] [place] - [address] [place] [address] Laboratory Report Ordering Provider Test Date Status YESI LR 03/11/2024 07:07:58 Final Observation Date Value Abnormality Reference (Units ) Status LDL, (direct) 03/11/2024 07:07:58 107 <=129 (mg/dL) Final LDL Cholesterol Reference Ra nges (mg/dL):
<70 Target level for high risk ASCVD patient
<100 Optimal for general population
100-129 Near optimal for general population
130-159 Borderline high
160-189 High
>=190 Very high Performing Location LAB[facility]ATORY [facility] - [address] [place] [address]
--- OUTSIDE RECORDS SUMMARY | 2024-03-27 19:10 | External Medical Summary | Summary of Care ---
Author Name Unknown Organization [facility] Address [address] [facility] [place] [address] Phone [phone] Care Team Providers Care Fruit Washer Name Role Phone Champ Richards MD Primary Care Provider [phone] Encounter Details Date Type Department Care Team (Late st Contact Info) Description 03/05/2024 Orders Only PATIENT PORTAL DO NOT DELETE THIS DEPT USED BY [address] [place] [address] Allergies No known active allergiesdocumented as of this encounter (statuses as of 03/05/2024) Medications Medication Sig Dispensed Refills Start Date [...] 30 Tablet 12/02/2021 Active OneTouch Delica Plus [id number] Use as directed. Use up to 4 [...] as of this encounter (statuses as of 03/05/2024) Active Problems Problem Noted Date Diagnosed Date [...] as of this encounter (statuses as of 03/05/2024) Resolved Problems Problem Noted Date Diagnosed Date [...] as of this encounter (statuses as of 03/05/2024) Immunizations Name Administration Dates Next Due COVID-19 [...] Description 03/20/2024 9:40 AM EDT Office Visit [facility] [address] [place] [facility] [place] [address] Champ Richards MD [address] [facility] [place], [place] [phone] Health Maintenance Due Date Last Done Comments [...] filedocumented as of this encounter Care Teams Fruit Washer Relationship Specialty Start Date End Date Champ Richards MD [address] [address] PCP - General Internal Medicine 05/24/22 documented as of this encounter
--- OUTSIDE RECORDS SUMMARY | 2024-03-27 19:10 | External Medical Summary ---
Author Name Unknown Address Unknown Organization [id number]:LABORATORY [facility] [place] - [address] [facility] [address] Laboratory Report Ordering Provider Test Date Status YESI LR 03/11/2024 07:07:58 Final Observation Date Value Abnormality Reference (Units ) Status HbA1C 03/11/2024 07:07:58 5.6 4.0-5.6 (% ) Final The use of HbA1c to monitor glycemic status is based on normal hemoglobin and HbA composition. This test should not be used in patients with abnormal hemoglobin that affects the half life of the red blood cell or the in vivo glycation rates. Glucose, estimated average 03/11/2024 07:07:58 114 <126 (mg/dL) Final Performing Location LABORATORY [facility] - [address] [facility] [address]
[2024-03-27] MEDS: LANTUS PER UNIT CHARGE SQ SCH (20:56)
[2024-03-27] MEDS ORDERED: MELATONIN 3 MG TAB PO PRN (21:00)
[2024-03-28] MEDS: LEVOTHYROXINE SODIUM 50 MCG TABLET PO SCH (06:01)
[2024-03-28 06:58] LABS: Hematocrit (blood only) 39.3 % (37.0-47.0); Hemoglobin 13.4 g/dl (12.0-16.0); Mean Corpuscular Hemoglobin 30.7 pg (25.0-34.0); Mean Corpuscular Hgb Conc 34.1 g/dL (32.0-36.0); Mean Corpuscular Volume 90.1 fL (80.0-100.0); Mean Platelet Volume 9.6 fL (9.4-12.4); Platelet Count 210 K/uL (130-400); RDW Coefficient of Variation 12.1 % (11.5-14.5); Red Blood Count 4.36 M/uL (4.20-5.40); White Blood Count 5.37 K/ul (4.8-10.8)
[2024-03-28 07:12] LABS: BUN Creatinine Ratio 11.5 (10-20); Calcium 9.4 mg/dl (8.6-10.3); Creatinine Clr Calc Pharmacy 86.8 ml/min; Est GFR (African American) 107.2 ml/min; Est GFR (Non-African American) 92.5 ml/min; Magnesium 1.7 mg/dl (1.7-2.4)
--- NOTE | 2024-03-28 09:56 | Cardiology Progress Note ---
Date of Service March 28, 2024 Assessment & Plan (1) Chest pain: (2) Hypertriglyceridemia: Plan 44-year-old female with cardiovascular risk factors of premature coronary disease in family, low HDL dyslipidemia, type 2 diabetes mellitus presents with intermittent chest tightness/pain x 2 to 3 days duration. Some atypical features. Initial enzymes and EKGs without acute injury pattern. Preserved LV systolic function on echo Patient being admitted to complete evaluation including exclusion of pulmonary embolus given recent travel Stress echocardiography planned for a.m. 03/28/2024 Stable overnight without cardiac symptoms. Patient underwent stress testing today without evidence of stress-induced ischemia though with accelerated heart rate response to exercise and low normal LV systolic function at baseline Recommendations: 1. Atypical chest pain: No evidence of ischemia by stress testing though with some limitations Will treat tachycardia, add metoprolol succinate 25 mg p.o. daily. Continue aspirin 81 mg/day 2. Low HDL dyslipidemia with elevated triglycerides: Discussed management with patient would recommend discontinuing fenofibrate Begin rosuvastatin 10 mg p.o. daily given risk benefits of statin, familial history of premature coronary disease 3. Strong family history of premature coronary disease with low HDL dyslipidemia. Stress testing as above. Will recommend further definition. Will make arrangements for coronary CTA post hospital discharge Admission and Anticipated Discharge Date Admission Date: March 27, 2024 Subjective Patient was seen both pre and post stress testing. Chart, testing medications reviewed No chest pain or chest discomfort overnight EKGs without abnormality, troponin serially negative Review of Systems Review of Systems: All systems reviewed & are unremarkable except as noted in Subjective Physical Exam Constitutional: WD/WN, vitals as above no acute distress Eyes: PERRL, conjunctivae normal, anicteric sclerae ENMT: external ear and nose normal, oropharynx normal Neck: trachea midline, no thyromegaly Respiratory: normal respiratory effort, lungs clear to auscultation Cardiovascular: RRR, no murmur, no edema Vessels: no JVD Extremities: no edema Gastrointestinal (Abdomen): normal bowel sounds, soft, nontender, no hepatosplenomegaly Musculoskeletal: no cyanosis or clubbing, extremities motor strength 5/5 Head/Neck/Chest: no chest tenderness Results & Data Vital Signs (Past 12 Hours) Vital Signs Temp Pulse Pulse Pulse Resp BP BP 03/28/24 07:32 36.7 C 68 18 134/84 03/28/24 05:31 89 03/28/24 02:55 36.5 C 94 H 18 134/78 03/27/24 22:12 37.0 C 93 H 20 127/84 Pulse Ox O2 Del Method 03/28/24 07:32 93 Room Air 03/28/24 05:31 03/28/24 02:55 96 Room Air 03/27/24 22:12 96 Room Air (1) Chest pain Chest pain type: precordial pain Qualified Code(s): R07.2 - Precordial pain
[2024-03-28] MEDS: OXYBUTYNIN CHLORIDE XL 5 MG TABCR PO SCH (10:04)
[2024-03-28] MEDS: VENLAFAXINE HCL XR 37.5 MG CAPXR PO SCH (10:05)
--- NOTE | 2024-03-28 13:51 | Discharge Summary ---
Date of Service March 28, 2024 Admission HPI Per Admitting Provider This is a 44-year-old male who has a significant past medical history of T2DM, hypothyroidism, hypertriglyceridemia, panic/anxiety disorder, hidradenitis suppurativa who presents to ED secondary to CP x 4 days. Patient is sedentary at baseline. 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 When she was sitting at her desk on Sunday morning she noticed left-sided chest pain that would come on for a few seconds to a minute. Her symptoms have persisted over the last 4 days, coming and going. 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 She also has had intermittent right-sided jaw pain for which she tried Orajel for. The chest pain and jaw pain did not occur simultaneously. Yesterday she also noticed that the pain radiated around her left breast to her back. When she called her PCP to try to get an, "EKG," and this morning they referred her to the ED. She reports in the past having history of palpitations for which she underwent multiple Holter monitors and stress tests which were unremarkable. She does report history of COVID in January after traveling on a cruise to the [place]. She denies smoking or alcohol use. She has a strong family history of heart disease with her mother who sustained an CT at 48. She was also in her 60s from an CT, but was the results of lung cancer/PE. Her father has history of atrial fibrillation and is status post Watchman procedure. In ED patient remained hemodynamically stable. Her initial troponin was unremarkable. Her EKG was without significant ST or T wave change. Her CBC and CMP were unremarkable except for mild elevated glucose at 154. She denies any recent trauma, injury or lifting. Her symptoms are not reproducible, she denies any worsening symptoms with inspiration or movement. Currently she is chest pain free. Admission Exam Per Admitting Provider Constitutional: WD/WN, vitals as above, NAD, sitting up in bed, pleasant, conversing easily Head: Normocephalic, Atraumatic Eyes: PERRL, conjunctivae normal, anicteric sclerae ENMT: external ear and nose normal, oropharynx normal Neck: trachea midline, no thyromegaly normal visual inspection Respiratory: normal respiratory effort, lungs clear to auscultation, no wheeze, rales, rhonchi. Normal insp/exp effort, no accessory muscle use Cardiovascular: RRR, no murmur, no edema Vessels: no JVD or carotid bruit Chest: normal inspection of chest , chest pain is not reproducible Abdomen: normal bowel sounds, soft, nontender, no hepatosplenomegaly Musculoskeletal: no cyanosis or clubbing, extremities motor strength 5/5 Skin: no rashes, warm and dry normal turgor Neurologic: PERRL, EOMI, accommodation nl, no face palsy, no dysarthria CN's II-XI intact bilaterally and moves all extremities Psychiatric: A+Ox3, euthymic affect Lymphatic: no cervical or axillary lymphadenopathy : deferred Principal Diagnosis Atypical chest pain Discharge Exam Constitutional + well hydrated; no acute distress Eyes PERRL, conjunctivae normal, anicteric sclerae ENMT external ear and nose normal, oropharynx normal Respiratory normal respiratory effort, lungs clear to auscultation Cardiovascular Rate/Rhythm: regular rate and regular rhythm Gastrointestinal (Abdomen) normal bowel sounds, soft, nontender, no hepatosplenomegaly Musculoskeletal no cyanosis or clubbing, extremities motor strength 5/5 Neurologic PERRL, EOMI, accommodation nl, no face palsy, no dysarthria Psychiatric A+Ox3, euthymic affect Discharge Data Allergies Allergy/AdvReac Type Severity Reaction Status Date / Time No Known Allergies Allergy Verified 03/27/24 14:23 Consultations 03/27/24 13:19 ED Decision to Admit Stat 03/27/24 14:41 Consult Cardiology Routine Ordered Studies 03/27/24 14:28 CT angio chest PE protocol Stat Hospital Course (1) Chest pain: (2) DM type 2 (diabetes mellitus, type 2): (3) Hypothyroidism: (4) Hypertriglyceridemia: Plan 44-year-old male who has a significant past medical history of T2DM, hypothyroidism, hypertriglyceridemia, panic/anxiety disorder, hidradenitis suppurativa who presents to ED secondary to CP x 4 days. Atypical Chest pain Significant risk factors include T2DM, obesity, hyperlipidemia and FH of CT with mother at 48 EKG did not show acute ST-T changes Troponin trend is normal CTA chest: negative for PE + RLL 5mm nodule. PCP to follow this up Hba1c 5.6 03/11; Lipid panel trig 233, chol 183, HDL 30 and LDL 107 on 03/11/24 Patient had stress Echo today which was negative for ischemia Chest pain has since resolved Cardiology evaluated and recommended stopping fenofibrate and starting rosuvastatin 10mg daily, start metoprolol succinate 25mg daily, continue aspirin 81mg daily Cardiology will arrange outpatient Cardiac CT Hypertriglyceridemia - Fenofibrate changed to Rosuvastatin Hypothyroidism: Stable Continue levothyroxine Panic disorder/anxiety: Continue effexor, mood stable Total Time Total Time Spent Total Time Spent (In Minutes): 35 Total Time Includes: Examination of the Patient, Discharge Planning and Medication Reconciliation Discharge Plan Discharge Items Patient Disposition: Home - Self-Care Reason For Visit: ATYPICAL CHEST PAIN Discharge Diagnosis: Atypical chest pain Activity: Resume your previous activity Non-emergency contact: Primary Care Provider Call non-emergency contact if: you have any medication questions and your symptoms worsen Follow-up/Referrals: Donn Fallon MD [Primary Care Provider] - Diet: Heart Healthy Addtl Attending Provider Instructions: Mrs Jorge James presented with chest pain and was evaluated. Stress test did not show a sign of heart attack. Some medication adjustments were recommended by Cardiology You are being started on metoprolol succinate. Stop taking your fenofibrate and start taking rosuvastatin. Continue taking baby aspirin. Please ensure follow up with Cardiology for Cardiac CT. It was a pleasure taking care of you. Pending Studies at Discharge: No Stand-Alone Forms: [facility], Smoking Cessation Medications and DC Order Prescriptions: New rosuvastatin 10 mg tablet 10 mg PO DAILY Qty: 30 0RF metoprolol succinate 25 mg tablet extended release 24 hr 25 mg PO DAILY Qty: 30 0RF aspirin 81 mg tablet,delayed release (DR/EC) 81 mg PO DAILY Qty: 30 0RF Continued norgestimate-ethinyl estradiol [Sprintec (28)] 0.25-35 mg-mcg tablet 1 tab PO DAILY venlafaxine 37.5 mg capsule,extended release 24hr 37.5 mg PO DAILY oxybutynin chloride 10 mg tablet extended release 24hr 10 mg PO DAILY levothyroxine 50 mcg tablet 50 mcg PO DAILY@0600 metformin 500 mg tablet extended release 24 hr 500 mg PO DAILY Ozempic 2 mg/dose (8 mg/3 mL) pen injector 2 mg SUBCUT TH Discontinued fenofibrate 160 mg tablet 160 mg PO DAILY Discharge Orders: Discharge Order (Routine); Ordered 03/28/24 Ordered By: Sarita Goel Admission Data Admit Date/Time: 03/27/24 14:04 Attending Provider: Sarita Goel I. Admit Provider: Zaid Briones Primary Care Provider: Donn Fallon Other Providers: Zaid Briones; John Montilla Other Interventions: Discharge Summary Assessment (RN) Last Done: 03/28/24 14:07
--- NOTE | 2024-03-28 19:14 | Electrocardiogram Report ---
Test Reason : Blood Pressure : / mmHG Vent. Rate : 090 BPM Atrial Rate : 090 BPM P-R Int : 126 ms QRS Dur : 076 ms QT Int : 398 ms P-R-T Axes : 053 022 010 degrees QTc Int : 486 ms Normal sinus rhythm Prolonged QT Abnormal ECG When compared with ECG of 27-MAR-2024 11:43, Nonspecific T wave abnormality, improved in Anterior leads QT has lengthened Confirmed by José Alexandra ([id number]) on 03/28/2024 7:13:56 PM Referred By: REFERRED SELF Confirmed By:José Alexandra
--- NOTE | 2024-03-28 19:14 | Electrocardiogram Report ---
Test Reason : Blood Pressure : / mmHG Vent. Rate : 107 BPM Atrial Rate : 107 BPM P-R Int : 134 ms QRS Dur : 072 ms QT Int : 338 ms P-R-T Axes : 053 020 000 degrees QTc Int : 451 ms Sinus tachycardia Nonspecific T wave abnormality Abnormal ECG When compared with ECG of 16-SEP-2023 10:18, Nonspecific T wave abnormality, improved in Lateral leads Confirmed by José Alexandra ([id number]) on 03/28/2024 7:13:28 PM Referred By: REFERRED SELF Confirmed By:José Alexandra
== END 2024-03-28 14:50 | disposition home or self-care (01) ==
LOC: EDINP 11:28 → ED 11:28 → SUATTDRO 14:04 → 2S 17:17

== ENCOUNTER 2024-05-01 22:55 | Inpatient (IN) ==
[2024-05-01] MEDS: SODIUM CHLORIDE 0.9% 1,000 ML IV STA (23:33)
[2024-05-01] MEDS: ONDANSETRON INJ 2 MG/ML 2 ML VIAL IV STA (23:33)
[2024-05-01] MEDS: FAMOTIDINE 20MG IV PUSH 20 MG/5 ML SYR IV STA (23:35)
[2024-05-01] MEDS: PANTOprazole 80 MG in DEXTROSE 5% 100 ML IV ONE (23:35)
--- NOTE | 2024-05-01 23:38 | Emergency Department Note ---
Impression & Plan Hematemesis, Vomiting and diarrhea, Tachycardia, Epigastric abdominal pain, Hypomagnesemia ED Provider Note NAME: TAMIE MCKEON AGE: 44 SEX: F : 1980 ARRIVES VIA: Walk-In INFORMANT: [Patient] ED PROVIDER(S): [Mumtaz Danielle MD] CHIEF COMPLAINT: Vomiting HISTORY OF PRESENT ILLNESS: The patient is a 44-year-old female who presents to the ER with vomiting for the last 3 hours. Today, she felt a bit of a headache and thought she may have had a fever. 3 hours ago, she began vomiting and after the second or third time, noticed some bright red blood. She did have some abdominal pain which seems to have resolved. Just before arriving in the ER, she had a bout of diarrhea, this was not bloody. The patient has not had cough or congestion. She has no respiratory complaints. She has been in baseline health lately. She takes a aspirin daily. She does carry history of reflux, she has had her gallbladder removed, she has no history of ulcer or previous upper GI bleeding. PMHx/PSHx/Social Hx: See Below PHYSICAL EXAM: GENERAL: Patient is in no acute distress. HEENT: No acute trauma, normocephalic atraumatic, mucous membranes moist, no nasal congestion. NECK: No stridor, no adenopathy, no meningismus, trachea is midline. LUNGS: Clear to auscultation bilaterally, no wheeze, no rhonchi, breath sounds equal. HEART: Mildly tachycardic, regular rhythm, no murmurs. ABDOMEN: Soft, mildly tender in the epigastrium, no peritonitis. EXTREMITIES: No cyanosis, full range of motion of all the joints without pain or difficulty. NEUROLOGIC: Oriented x 3, no acute motor or sensory deficits, no focal weakness. SKIN: No jaundice, no diaphoresis. Slightly pale. DIFFERENTIAL DIAGNOSIS: Esophageal tear, gastritis, ulcer, foodborne or viral illness, dehydration, among others. EMERGENCY DEPARTMENT PROCEDURES: MEDICAL DECISION MAKING: There is a slight leukocytosis, this could be consistent with infection or the stress of her current presentation. There is a normal hemoglobin and platelet count. No coagulopathy. Potassium slightly high but not in need of emergent correction. No renal failure. Magnesium was low at 1.5. No concerning liver enzyme elevation. No evidence for pancreatitis. testing was negative. Urinalysis showed possible contamination versus infection. Urine culture is pending. Chest film did not show pneumonia, or free air or mediastinal widening. On exam, the patient appeared slightly pale, she was somewhat tachycardic, she was holding a vomit bag. Patient was given IV saline, 1 L. She received IV Protonix, IV Zofran, IV magnesium. She was given 1 L of IV lactated Ringer's. She was given IV Pepcid. Patient is feeling improved since the medications noted above were administered. Her color has returned. Her heart rate has decreased. She is no longer nauseated. Patient presents with hematemesis and some diarrhea. Given her presentation, given the uncertainly of the cause for the hematemesis, I do think a hospital stay is warranted. A GI evaluation/endoscopy may be warranted. I did speak with the patient about her findings, I spoke with case management, the on-call hospitalist was consulted. Prior/Outside records/notes reviewed: None Imaging/x-ray results per my interpretation: Chest x-ray does not show free air, pneumonia or mediastinal widening. Chronic Medical/Social conditions affecting care: Care/Management discussed with: Case management, the on-call hospitalist Level of care consideration(s): After review of the information above and other included data: --I believe the patient requires escalation of care to admission DISPOSITION: Admission Past Med/Surg History Problem List (Updated 05/02/24 @ 03:08 by Mumtaz Danielle MD) Hypomagnesemia (Acute) Epigastric abdominal pain (Acute) Tachycardia (Acute) Vomiting and diarrhea (Acute) Hematemesis (Acute) Not currently (Acute) History of high cholesterol (Acute) Diabetes (Acute) Family history of heart disease (Acute) Hypertriglyceridemia Chest pain (Acute) Low grade squamous intraepith lesion on cytologic smear cervix (lgsil) Perimenopausal symptom DUB (dysfunctional uterine bleeding) Ovarian cyst Cervical high risk HPV (human papillomavirus) test positive COVID-19 (Acute) Pelvic pain Breast pain, right Nausea vomiting and diarrhea (Acute) Acute dehydration (Acute) Hypomagnesemia (Acute) Hyperglycemia (Acute) Elevated LFTs S/P laparoscopic hernia repair Hypothyroidism DM type 2 (diabetes mellitus, type 2) NIDDM GERD (gastroesophageal reflux disease) Encounter for pre-operative examination Cholelithiasis (Chronic) Laryngopharyngeal reflux (Chronic) Hidradenitis suppurativa (Chronic) Herpes simplex (Chronic) Fatty liver (Chronic) Cystic acne (Chronic) Cervical dysplasia (Chronic) Mild obstructive sleep apnea (Chronic) Nocturnal hypoxemia (Chronic) Vulvar lump Infected sebaceous cyst Supraumbilical hernia PCOS (polycystic ovarian syndrome) (Chronic) Medical History Osteoarthritis PCOS (polycystic ovarian syndrome) Fatty liver IBS (irritable bowel syndrome) History of migraine Surgical History History of incisional hernia repair (10/25/20) Laparoscopic incisional hernia repair. Dr. Mejia 10/25/20 History of colonoscopy History of surgery tumor excision face 1982 History of laparoscopic cholecystectomy History of surgical removal of ganglion cyst [place] teeth removed (06/12/13) Family History Mother Diabetes Heart disease Breast cancer Lung cancer as a result Cervical cancer Myocardial infarction Father Diabetes Heart disease Grandmother (Paternal) Breast cancer Aunt Breast cancer great mat aunt Uterine cancer great maternal aunt Aunt Ovarian cancer Other Family history non-contributory No family history of adverse response to anesthesia Denies family history of Prostate cancer Colorectal cancer Social History Smoking Status: Former smoker Tobacco Type: Cigarettes Second Hand Exposure: Yes (as a child); Do You Dip or Chew Tobacco: No; Hx Alcohol Use: No Hx Substance Use: No Preferred Language: Hebrew Communication Ability: Effective Visual Impairment: No Limitations Cutch Cleaner Required: No Beliefs That Will Affect Care: None marital status: Current Living Situation: Spouse Current Living Situation Comment: lives at home with current occupational status: employed 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 [employer] How many Children do You have: 2 Feels Safe at Home: Yes Assistive Devices: Glasses Allergies Allergies Allergy/AdvReac Type Severity Reaction Status Date / Time No Known Allergies Allergy Verified 03/27/24 14:23 Home Meds Home Medications Medication Instructions Recorded Confirmed levothyroxine 50 mcg tablet 50 mcg PO DAILY@0600 03/27/24 05/02/24 metformin 500 mg tablet,extended 500 mg PO DAILY 03/27/24 05/02/24 release 24 hr norgestimate 0.25 mg-ethinyl 1 tab PO DAILY 03/27/24 05/02/24 estradiol 35 mcg tablet (Sprintec (28)) oxybutynin chloride 10 mg 10 mg PO DAILY 03/27/24 05/02/24 tablet,extended release 24 hr semaglutide 2 mg/dose (8 mg/3 mL) 2 mg subcut WK 03/27/24 05/02/24 subcutaneous pen injector (Ozempic) venlafaxine 37.5 mg 37.5 mg PO DAILY 03/27/24 05/02/24 capsule,extended release 24 hr Previous Rx's Medication Instructions Recorded aspirin 81 mg tablet,delayed 81 mg PO DAILY #30 tabs 03/28/24 release metoprolol succinate 25 mg 25 mg PO DAILY #30 tabs 03/28/24 tablet,extended release 24 hr rosuvastatin 10 mg tablet 10 mg PO DAILY #30 tabs 03/28/24 Results & Data (ED) Vital Signs Vital Signs - 24 hr 05/01/24 22:57 05/01/24 23:26 05/02/24 00:09 Temperature 36.6 C Temperature Source Oral Pulse Rate 112 H 110 H 99 H Respiratory Rate 20 18 Respiratory Effort / Characteristics Non-Labored Spontaneous Respiratory Depth Normal Respiratory Pattern Regular Blood Pressure 130/87 114/70 Blood Pressure Mean 101 85 Pulse Oximetry 92 99 Oxygen Delivery Method Room Air Sepsis Recent Fever Within 48 Hours No Sepsis New/Unexplained Change in Mental Status N/A Sepsis Action Taken by Nursing No Action Required 05/02/24 00:30 05/02/24 01:30 05/02/24 02:00 Temperature Temperature Source Pulse Rate 100 H 102 H 101 H Respiratory Rate 16 20 18 Respiratory Effort / Characteristics Respiratory Depth Respiratory Pattern Blood Pressure 117/82 99/65 L 136/69 Blood Pressure Mean 93 77 94 Pulse Oximetry 100 98 99 Oxygen Delivery Method Sepsis Recent Fever Within 48 Hours Sepsis New/Unexplained Change in Mental Status Sepsis Action Taken by Correction Medications Current Medication List: was personally reviewed by me Laboratory Data Attestation: I reviewed the patient's lab results. 05/01/24 23:25 05/01/24 23:25 Lab Results 05/01/24 05/02/24 Range/Units 23:25 00:55 WBC 11.41 H (4.8-10.8) K/ul RBC 4.82 (4.20-5.40) M/uL Hgb 14.9 (12.0-16.0) g/dl Hct 43.7 (37.0-47.0) % MCV 90.7 (80.0-100.0) fL MCH 30.9 (25.0-34.0) pg MCHC 34.1 (32.0-36.0) g/dL RDW Std Deviation 40.7 (36.4-46.3) fL RDW Coeff of Ria 12.3 (11.5-14.5) % Plt Count 234 (130-400) K/uL MPV 9.8 (9.4-12.4) fL Immature Gran % (Auto) 0.3 % Neut % (Auto) 69.8 % Lymph % (Auto) 23.7 % Owsley % (Auto) 5.6 % Eos % (Auto) 0.3 % Baso % (Auto) 0.3 % Neut # (Auto) 7.98 H (1.40-6.50) K/uL Lymph # (Auto) 2.70 (1.20-3.40) K/uL O[place]ley # (Auto) 0.64 H (0.11-0.59) K/uL Eos # (Auto) 0.03 (0.00-0.50) K/uL Baso # (Auto) 0.03 (0.00-0.20) K/uL Immature Gran # (Auto) 0.03 (0.01-0.20) K/uL PT 10.8 (9.0-12.0) Seconds INR 1.0 (0.9-1.1) APTT 25 (21-31) Seconds PTT Ratio 0.9 Sodium 135 L (136-145) mmol/L Potassium 5.2 H (3.5-5.1) mmol/L Chloride 101 (98-107) mmol/L Carbon Dioxide 22 (21-32) mmol/L Anion Gap 12 H (3-11) BUN 16 (6-23) mg/dl Creatinine 0.92 (0.6-1.2) mg/dl Est Cr Clr Drug Dosing 72.7 ml/min Est GFR ( Amer) 87.8 ml/min Est GFR (Non-Af Amer) 75.7 ml/min BUN/Creatinine Ratio 17.4 (10-20) Glucose 218 H (70-99(Fasting)) mg/dl Calcium 10.1 (8.6-10.3) mg/dl Magnesium 1.5 L (1.7-2.4) mg/dl Total Bilirubin 0.7 (0.2-1.0) mg/dl AST 28 (13-39) U/L ALT 27 (7-52) U/L Alkaline Phosphatase 55 (34-104) U/L Total Protein 8.3 (6.0-8.3) gm/dl Albumin 4.7 (3.4-5.0) gm/dl Globulin 3.6 (2.5-4.0) gm/dl Albumin/Globulin Ratio 1.3 (0.9-2) Lipase 39 (11-82) U/L HCG, Qual Negative (Negative) Urine Color Dark Yellow Urine Appearance Turbid A (Clear) Urine pH 5.0 (4.5-7.5) Ur Specific [place] 1.031 H (1.000-1.030) Urine Protein 4+ H (Negative) Urine Glucose (UA) Negative (Negative) Urine Ketones 1+ H (Negative) Urine Blood Negative (Negative) Urine Nitrite Negative (Negative) Urine Bilirubin 2+ H (Negative) Urine Urobilinogen Negative (Negative) Ur Leukocyte Esterase 1+ H (Negative) Urine WBC (Auto) 21-50 H (0-5) /hpf Urine RBC (Auto) 11-20 H (0-2) /hpf U Hyaline Cast (Auto) >20 H (0-2) /lpf U Epithel Cells (Auto) 11-20 H (0-2) /hpf Urine Bacteria (Auto) 4+ H (None Seen) Calcium Oxalate Crystal Present A (None Prsent) Granular Casts Present A (None Prsent) /lpf Urine Mucus Present A (None Prsent) Urine Yeast Present A (None Prsent) Administered Medications Magnesium Sulfate/Dextrose (Magnesium Sulfate / D5w) 1 gm in 100 mls @ 50 mls/hr IV ONE ONE Stop: 05/02/24 03:44 Last Admin: 05/02/24 01:58 Dose: 50 mls/hr Documented By: KML Sodium Chloride (Nss) 1,000 mls @ 100 mls/hr IV .Q10H ONE Stop: 05/02/24 11:29 Last Admin: 05/02/24 01:59 Dose: 100 mls/hr Documented By: MIN Oxycodone HCl (Oxycodone Hcl Ir 5 Mg Tab (Immediate Release)) 5 - 10 mg PO QID PRN PRN Reason: Pain Stop: 05/16/24 02:02 Last Admin: 05/02/24 02:45 Dose: 5 mg Documented By: MIN Discontinued Medications Sodium Chloride (Nss) 1,000 mls @ 999 mls/hr IV .Q1H1M STA Stop: 05/02/24 00:20 Last Infusion: 05/02/24 00:52 Dose: Infused Documented By: Admin: 05/01/24 23:33 Dose: 999 mls/hr Documented By: MIN Famotidine (Pepcid 20mg Iv Push) 20 mg in 5 mls @ 2.5 mls/min IV NOW STA Stop: 05/01/24 23:21 Last Admin: 05/01/24 23:35 Dose: 2.5 mls/min Documented By: MIN Pantoprazole Sodium 80 mg/ (Dextrose) 120 mls @ 400 mls/hr IV NOW ONE Stop: 05/01/24 23:37 Last Infusion: 05/01/24 23:55 Dose: Infused Documented By: Admin: 05/01/24 23:35 Dose: 400 mls/hr Documented By: MIN Magnesium Sulfate/Dextrose (Magnesium Sulfate / D5w) 1 gm in 100 mls @ 100 mls/hr IV NOW STA Stop: 05/02/24 01:00 Last Infusion: 05/02/24 01:06 Dose: Infused Documented By: Admin: 05/02/24 00:07 Dose: 100 mls/hr Documented By: MIN Lactated Ringer's (Lr) 1,000 mls @ 999 mls/hr IV .Q1H1M ONE Stop: 05/02/24 01:21 Last Infusion: 05/02/24 01:55 Dose: Infused Documented By: Admin: 05/02/24 00:53 Dose: 999 mls/hr Documented By: MIN Ioversol (Optiray 320 100ml) 125 ml IV ONCE ONE Stop: 05/02/24 02:26 Last Admin: 05/02/24 02:25 Dose: 93 ml Documented By: DEBORA Ondansetron HCl (Ondansetron Inj 2 Mg/Ml 2 Ml Vial) 4 mg IV NOW STA Stop: 05/01/24 23:21 Last Admin: 05/01/24 23:33 Dose: 4 mg Documented By: MIN Discharge Plan Visit Data Chief Complaint: Vomiting Stated Complaint: Vomiting ED Provider: Mumtaz Danielle Discharge Problem: Hematemesis, Vomiting and diarrhea, Tachycardia, Epigastric abdominal pain, Hypomagnesemia Patient Disposition: Admitted As Inpatient Condition: Fair Forms Stand Alone Forms: [facility] Prescriptions Prescriptions: No Action norgestimate-ethinyl estradiol [Sprintec (28)] 0.25-35 mg-mcg tablet 1 tab PO DAILY venlafaxine 37.5 mg capsule,extended release 24hr 37.5 mg PO DAILY oxybutynin chloride 10 mg tablet extended release 24hr 10 mg PO DAILY levothyroxine 50 mcg tablet 50 mcg PO DAILY@0600 metformin 500 mg tablet extended release 24 hr 500 mg PO DAILY Ozempic 2 mg/dose (8 mg/3 mL) pen injector 2 mg SUBCUT WK rosuvastatin 10 mg tablet 10 mg PO DAILY Qty: 30 0RF metoprolol succinate 25 mg tablet extended release 24 hr 25 mg PO DAILY Qty: 30 0RF aspirin 81 mg tablet,delayed release (DR/EC) 81 mg PO DAILY Qty: 30 0RF Referrals Referrals: Donn Fallon MD [Primary Care Provider] - Discharge Problem: Hematemesis Qualifiers: Nausea presence: with nausea Qualified Code(s): K92.0 - Hematemesis
[2024-05-01 23:53] LABS: Basophils # (auto) 0.03 K/uL (0.00-0.20); Basophils % (auto) 0.3 %; Eosinophils # (auto) 0.03 K/uL (0.00-0.50); Eosinophils % (auto) 0.3 %; Hematocrit (blood only) 43.7 % (37.0-47.0); Hemoglobin 14.9 g/dl (12.0-16.0); Immature Granulocytes # (auto) 0.03 K/uL (0.01-0.20); Immature Granulocytes % (auto) 0.3 %; Lymphocytes % (auto) 23.7 %; Mean Corpuscular Hemoglobin 30.9 pg (25.0-34.0); Mean Corpuscular Hgb Conc 34.1 g/dL (32.0-36.0); Mean Corpuscular Volume 90.7 fL (80.0-100.0); Mean Platelet Volume 9.8 fL (9.4-12.4); Monocytes # (auto) 0.64 K/uL (0.11-0.59); Monocytes % (auto) 5.6 %; Neutrophils # (auto) 7.98 K/uL (1.40-6.50); Neutrophils % (auto) 69.8 %; Platelet Count 234 K/uL (130-400); RDW Coefficient of Variation 12.3 % (11.5-14.5); RDW Standard Deviation 40.7 fL (36.4-46.3); Red Blood Count 4.82 M/uL (4.20-5.40); White Blood Count 11.41 K/ul (4.8-10.8)
[2024-05-01 23:57] LABS: Pregnancy Test, Serum Negative (Negative)
[2024-05-01 23:58] LABS: Albumin Globulin Ratio 1.3 (0.9-2); Albumin Level 4.7 gm/dl (3.4-5.0); BUN Creatinine Ratio 17.4 (10-20); Bilirubin,Total 0.7 mg/dl (0.2-1.0); Calcium 10.1 mg/dl (8.6-10.3); Creatinine Clr Calc Pharmacy 72.7 ml/min; Est GFR (African American) 87.8 ml/min; Est GFR (Non-African American) 75.7 ml/min; Globulin 3.6 gm/dl (2.5-4.0); Magnesium 1.5 mg/dl (1.7-2.4); Potassium 5.2 mmol/L (3.5-5.1); Total Protein 8.3 gm/dl (6.0-8.3)
[2024-05-02] MEDS: MAGNESIUM SULFATE / D5W 1 GM/100 ML BAG IV STA (00:07)
[2024-05-02 00:09] LABS: Partial Thromboplastin Ratio 0.9; Partial Thromboplastin Time 25 Seconds (21-31); Prothrombin Time 10.8 Seconds (9.0-12.0)
--- OUTSIDE RECORDS SUMMARY | 2024-05-02 00:21 | External Medical Summary | Summary of Care ---
Author Name Unknown Organization [facility] Address [address] [place] [address] Phone [phone] Care Team Providers Care Conductor Pullman Name Role Phone Champ Richards MD Primary Care Provider [phone] Encounter Details Date Type Department Care Team (Late st Contact Info) Description 04/25/2024 Orders Only Located Within [facility] [address] [place] [address] Champ Richards MD [address] [place] [address] Allergies No known active allergiesdocumented as of this encounter (statuses as of 04/25/2024) Medications Medication Sig Dispensed Refills Start Date End Date Status acetaminophen (TYLENOL) 500 MG TabletIndications:S baljit osteophytosis [...] a day E11.9 1 Kit 01/31/2020 Active Levonorgestrel-Ethi nyl Estrad 0.15-30 MG-MCG Oral Tablet [...] 30 Tablet 12/02/2021 Active OneTouch Delica Plus [id number] Use as directed. Use up to 4 [...] or chew. 30 Capsule 5 07/09/2023 Active Semaglutide (2 MG/DOSE) 8 MG/3ML Subcutaneous [...] Daily(AM), (No instructions reported), Reported on 03/20/2024 Aspirin Low Dose 81 MG Oral Tablet Delayed Release Take 1 Tablet by mouth in the morning. 03/28/2024 Active Rosuvastatin Calcium 10 MG Oral Tablet (Crestor) Take 1 Tablet by mouth in the morning. 03/28/2024 Active Metoprolol Succinate ER 25 MG Oral Tablet Extended Release 24 Hour (toPROL XL) Take 1 Tablet by mouth in the morning. 03/28/2024 Active Fenofibrate 160 MG Oral Tablet (Lofibra) Take 1 Tablet by mouth in the morning. Active documented as of this encounter (statuses as of 04/25/2024) Active Problems Problem Noted Date Diagnosed Date [...] as of this encounter (statuses as of 04/25/2024) Resolved Problems Problem Noted Date Diagnosed Date [...] as of this encounter (statuses as of 04/25/2024) Immunizations Name Administration Dates Next Due COVID-19 mRNA, LNP-s, No Pre serve, 2-Dose Series (Pfizer) 09/14/2020,08/18/2020 PPD 12/26/2006 Pneumococcal Polysaccharide PPV23 (Pneumovax) 12/15/2008(Deferred: Patient Refused) Seasonal Influenza, PF, 6 M & above, IM , (FluLaval or Fluzone) 06/13/2017 Seasonal Influenza, Quadriva lent, No Preserve, IM 05/27/2020,06/27/2018 Seasonal Influenza, Trivalen t, (IIV3), with Preserv, (Fluzone) 06/10/2013,05/31/2010,06/27/2009,06/27 TD - Tetanus/Diptheria (ADULT) 11/25/2004 TDAP (age 10 and older)(Boostrix) 10/15/2015 documented as of this encounter Social History Tobacco Use Types Packs/Day Years Used Date Smoking Tobacco: Former Cigarettes 2016 Smokeless Tobacco: Never Comments:began at age 18 Alcohol Use Standard Drinks/Week Comments No 0 (1 standard drink = 0.6 oz pur e alcohol) AUDIT-C Answer Date Recorded Frequency of Alcohol Consumption Never 11/20/2018 Average Number of Drinks Not on file 019 Frequency of Binge Drinking Not on file 10/26 PHQ-2 Answer Date Recorded PHQ Adult Total Score 0 04/03/2024 Hunger Vital Sign Answer Date Recorded Within [...] AM EDT Office Visit Sleep Disorders Ctr [facility] [address] [facility] [place] [phone] Radha Smith DO [address] [place] [address] 08/06/2024 8:30 AM EST Office Visit Cardiology, [facility] [address] [facility] [place] [address] Donn Roberson PA-C [address] [facility] [place] [address] 09/22/2024 7:40 AM EST Office Visit Family [facility] [address] [place] [phone] Champ Richards MD [address] [place] [address] 10/06/2024 4:30 PM EST Imaging Radiology [facility] [address] [facility] [place] [address] Pending Results Name Type Priority Associated Diagnoses Date /Time MAMMOGRAM SCREENING DAYO BILATERAL Medical Imaging Routine 04/24/2024 Health Maintenance Due Date Last Done Comments Pneumococcal Vaccine: Pediatrics (0 to 5 Years) and At-Risk Patients (6 to 64 Years) (1 of 2 - PCV) 01/05/1986 Hepatitis B Vaccine (1 of 3 - 19+ 3-dose series) 01/05/1999 PAP SMEAR-ANNUAL AGES 18-100 12/17/2019, 10/09/2017, 05/08/2016, Additional history exists B-12 03/29/2021 03/29/2020 COVID-19 Vaccine ( season) 2023 09/14/2020, 08/18/2020 Diabetic Eye Exam 01/14/2024 01/13/2023, 06/24/2020 Influenza Vaccine (FLU shot) (#1) 2024 05/27/2020, 06/27/2018, 06/13/2017, Additional history exists HbA1c 09/11/2024 03/11/2024, 06/27, 05/26/2023, Additional history exists Albumin/Creatinine Ratio 03/11/2025 024, 05/19/2022, 03/29/2020 GFR 03/11/2025 03/11/2024, 06/27, 05/26/2023, Additional history exists TSH 03/11/2025 03/11/2024, 06/27, 05/26/2023, Additional history exists Depression Screening 04/03/2025 04/03/2024 Diabetic Foot Exam 04/03/2025 04/03/2024, 0 05/25/2022, 01/26/2021, Additional history exists Mammogram 04/24/2025 04/13/2023, 08/0 12/2021, 03/30/2021 DTap/Tdap Vaccines (2 - Td or Tdap) 10/15/2025 [...] filedocumented as of this encounter Care Teams Conductor Pullman Relationship Specialty Start Date End Date [facility] [address] [facility] [place] [address] PCP - General Internal Medicine 05/24/22 documented as of this encounter
[2024-05-02] MEDS: LACTATED RINGER'S 1,000 ML IV ONE (00:53)
[2024-05-02] MEDS: MAGNESIUM SULFATE / D5W 1 GM/100 ML BAG IV ONE (01:58)
--- NOTE | 2024-05-02 01:58 | History & Physical Report ---
Date of Service May 02, 2024 Assessment & Plan (1) UGIB (upper gastrointestinal bleed): Plan: Differentials include esophagitis, gastritis Some degree of hemodynamic instability given low BP documented at the ER Complicated UTI, no overt sepsis for now Diarrheal illness rule out infectious cause hypertension, borderline BP at the ER Hyperkalemia, hypomagnesemia secondary to GI illness hyperlipidemia, on statin Rx DM2 on oral medications, well-controlled as of recent hemoglobin A1c of 5.01 March 2024 hypothyroidism, euthyroid as of recent outpatient TSH Medical telemetry IV PPI Hold aspirin for now GI consult if with recurrent GI bleed/significant H&H drop IVF Follow H&H, transfuse PRBC if hemoglobin less than 7 and or for symptomatic anemia Urine Cx, Ceftriaxone CT abdomen pelvis RE abdominal pain, GI bleed Stool workup Recheck serum potassium after fluid bolus given at the ER Replacement magnesium ISS BG goal 1 10-1 40 DVT prophylaxis. SCDs Full code Text document was generated using [employer] voice recognition software. It may contain grammatical or spelling errors. Kindly contact undersigned for clarification of any documentation item in question. History of Present Illness Chief Complaint: Abdominal pain, hematemesis Primary Care Provider: Donn Fallon MD History obtained from patient and records. Medical history significant for hypertension, hyperlipidemia, DM2 on oral medications, hypothyroidism, IBS, NAFLD, PCOS, anxiety/mood disorder, past to bacco abuse. Recent confinement last month for chest pain. No ischemia on stress echo. Patient discharged on aspirin, beta-abiel, and statin medications. Patient not feeling well yesterday. Achy epigastric discomfort later followed by dry heaving and hematemesis. Transient diarrhea. Not sure about sick contacts. Low-grade fever. Denies chest pain, SOB. Denies OTC NSAID intake. IV Protonix administered at the ER. Lowest SBP of 90s documented at the ER. Medical History as above 2013 EGD was normal Surgical History : Carpal tunnel surgery, cervical colposcopy, hand decompression, dental surgery, cholecystectomy, right knee surgery Family History : DM, colon cancer, IBD, heart disease, ovarian cancer, uterine cancer, schizophrenia, mood disorder Personal/Social history : Past tobacco abuse, no EtOH intake, hospital medical records employment Allergies Allergy/AdvReac Type Severity Reaction Status Date / Time No Known Allergies Allergy Verified 03/27/24 14:23 Home Medications Medication Instructions Recorded Confirmed Type levothyroxine 50 mcg tablet 50 mcg PO DAILY@0600 03/27/24 05/02/24 History metformin 500 mg tablet,extended 500 mg PO DAILY 03/27/24 05/02/24 History release 24 hr norgestimate 0.25 mg-ethinyl 1 tab PO DAILY 03/27/24 05/02/24 History estradiol 35 mcg tablet (Sprintec (28)) oxybutynin chloride 10 mg 10 mg PO DAILY 03/27/24 05/02/24 History tablet,extended release 24 hr semaglutide 2 mg/dose (8 mg/3 mL) 2 mg subcut WK 03/27/24 05/02/24 History subcutaneous pen injector (Ozempic) venlafaxine 37.5 mg 37.5 mg PO DAILY 03/27/24 05/02/24 History capsule,extended release 24 hr aspirin 81 mg tablet,delayed 81 mg PO DAILY #30 tabs 03/28/24 05/02/24 Rx release metoprolol succinate 25 mg 25 mg PO DAILY #30 tabs 03/28/24 05/02/24 Rx tablet,extended release 24 hr rosuvastatin 10 mg tablet 10 mg PO DAILY #30 tabs 03/28/24 05/02/24 Rx Past Med/Surg History Problem List (Updated 05/02/24 @ 03:10 by Elieser Garcia MD) UGIB (upper gastrointestinal bleed) Hypomagnesemia (Acute) Epigastric abdominal pain (Acute) Tachycardia (Acute) Vomiting and diarrhea (Acute) Hematemesis (Acute) Not currently (Acute) History of high cholesterol (Acute) Diabetes (Acute) Family history of heart disease (Acute) Hypertriglyceridemia Chest pain (Acute) Low grade squamous intraepith lesion on cytologic smear cervix (lgsil) Perimenopausal symptom DUB (dysfunctional uterine bleeding) Ovarian cyst Cervical high risk HPV (human papillomavirus) test positive COVID-19 (Acute) Pelvic pain Breast pain, right Nausea vomiting and diarrhea (Acute) Acute dehydration (Acute) Hypomagnesemia (Acute) Hyperglycemia (Acute) Elevated LFTs S/P laparoscopic hernia repair Hypothyroidism DM type 2 (diabetes mellitus, type 2) NIDDM GERD (gastroesophageal reflux disease) Encounter for pre-operative examination Cholelithiasis (Chronic) Laryngopharyngeal reflux (Chronic) Hidradenitis suppurativa (Chronic) Herpes simplex (Chronic) Fatty liver (Chronic) Cystic acne (Chronic) Cervical dysplasia (Chronic) Mild obstructive sleep apnea (Chronic) Nocturnal hypoxemia (Chronic) Vulvar lump Infected sebaceous cyst Supraumbilical hernia PCOS (polycystic ovarian syndrome) (Chronic) Medical History Osteoarthritis PCOS (polycystic ovarian syndrome) Fatty liver IBS (irritable bowel syndrome) History of migraine Surgical History History of incisional hernia repair (10/25/20) Laparoscopic incisional hernia repair. Dr. Mejia 10/25/20 History of colonoscopy History of surgery tumor excision face 1982 History of laparoscopic cholecystectomy History of surgical removal of ganglion cyst [place] teeth removed (06/12/13) Family History Mother Diabetes Heart disease Breast cancer Lung cancer as a result Cervical cancer Myocardial infarction Father Diabetes Heart disease Grandmother (Paternal) Breast cancer Aunt Breast cancer great mat aunt Uterine cancer great maternal aunt Aunt Ovarian cancer Other Family history non-contributory No family history of adverse response to anesthesia Denies family history of Prostate cancer Colorectal cancer Social History Smoking Status: Unknown if ever smoked Tobacco Type: Cigarettes Second Hand Exposure: Yes (as a child); Do You Dip or Chew Tobacco: No; Hx Substance Use: No Preferred Language: Greek Communication Ability: Effective Visual Impairment: No Limitations Bottom Precipitator Operator Required: No Beliefs That Will Affect Care: None marital status: Current Living Situation: Spouse Current Living Situation Comment: lives at home with current occupational status: employed 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 How many Children do You have: 2 Other Information That Helps Us Care for You: No Feels Safe at Home: Yes Safety Concerns: Feels Safe At This Time Assistive Devices: None Review of Systems Review of Systems: As per HPI, all other systems reviewed and negative Physical Exam Physical Exam: GENERAL: Comfortable, pleasant, obese, no respiratory distress SKIN: Normal color, warm HEENT: [place] palpebral conjunctivae, no ptosis, dry buccal mucosa NECK : Supple, short neck, no tenderness CHEST : CTA, no tenderness HEART : Tachycardic, no obvious murmurs ABDOMEN: Some distention, epigastric tenderness EXTREMITIES : Minimal LE swelling, no LE tenderness, no other conspicuous deformities noted NEUROLOGIC : Coherent, no facial asymmetry, no other gross focality Results & Data Results & Data Vital Signs (Past 12 Hours) Vital Signs Temp Pulse Resp BP Pulse Ox O2 Del Method 05/02/24 00:30 100 H 16 117/82 100 05/02/24 00:09 99 H 18 114/70 99 05/01/24 23:26 110 H 05/01/24 22:57 36.6 C 112 H 20 130/87 92 Room Air Laboratory Results Laboratory Results WBC 11.41 K/ul (4.8-10.8) H 05/01/24 23:25 RBC 4.82 M/uL (4.20-5.40) 05/01/24 23:25 Hgb 14.9 g/dl (12.0-16.0) 05/01/24 23:25 Hct 43.7 % (37.0-47.0) 05/01/24 23:25 MCV 90.7 fL (80.0-100.0) 05/01/24 23:25 MCH 30.9 pg (25.0-34.0) 05/01/24 23: MCHC 34.1 g/dL (32.0-36.0) 05/01/24 23:25 RDW Std Deviation 40.7 fL (36.4-46.3) 05/01/24 23:25 RDW Coeff of Ria 12.3 % (11.5-14.5) 05/01/24 23:25 Plt Count 234 K/uL (130-400) 05/01/24 23:25 MPV 9.8 fL (9.4-12.4) 05/01/24 23:25 Immature Gran % (Auto) 0.3 % 05/01/24 23:25 Neut % (Auto) 69.8 % 05/01/24 23:25 Lymph % (Auto) 23.7 % 05/01/24 23:25 [place] % (Auto) 5.6 % 05/01/24 23:25 Eos % (Auto) 0.3 % 05/01/24 23:25 Baso % (Auto) 0.3 % 05/01/24 23:25 Neut # (Auto) 7.98 K/uL (1.40-6.50) H 05/01/24 23:25 Lymph # (Auto) 2.70 K/uL (1.20-3.40) 05/01/24 23:25 [place] # (Auto) 0.64 K/uL (0.11-0.59) H 05/01/24 23:25 Eos # (Auto) 0.03 K/uL (0.00-0.50) 05/01/24 23:25 Baso # (Auto) 0.03 K/uL (0.00-0.20) 05/01/24 23:25 Immature Gran # (Auto) 0.03 K/uL (0.01-0.20) 05/01/24 23:25 PT 10.8 Seconds (9.0-12.0) 05/01/24 23:25 INR 1.0 (0.9-1.1) 05/01/24 23:25 APTT 25 Seconds (21-31) 05/01/24 23:25 PTT Ratio 0.9 05/01/24 23:25 Sodium 135 mmol/L (136-145) L 05/01/24 23:25 Potassium 5.2 mmol/L (3.5-5.1) H 05/01/24 23:25 Chloride 101 mmol/L (98-107) 05/01/24 23:25 Carbon Dioxide 22 mmol/L (21-32) 05/01/24 23:25 Anion Gap 12 (3-11) H 05/01/24 23:25 BUN 16 mg/dl (6-23) 05/01/24 23:25 Creatinine 0.92 mg/dl (0.6-1.2) 05/01/24 23:25 Est Cr Clr Drug Dosing 72.7 ml/min 05/01/24 23:25 Est GFR ( Amer) 87.8 ml/min 05/01/24 23:25 Est GFR (Non-Af Amer) 75.7 ml/min 05/01/24 23:25 BUN/Creatinine Ratio 17.4 (10-20) 05/01/24 23:25 Glucose 218 mg/dl (70-99(Fasting)) H 05/01/24 23:25 Calcium 10.1 mg/dl (8.6-10.3) 05/01/24 23:25 Magnesium 1.5 mg/dl (1.7-2.4) L 05/01/24 23:25 Total Bilirubin 0.7 mg/dl (0.2-1.0) 05/01/24 23:25 AST 28 U/L (13-39) 05/01/24 23:25 ALT 27 U/L (7-52) 05/01/24 23:25 Alkaline Phosphatase 55 U/L (34-104) 05/01/24 23:25 Total Protein 8.3 gm/dl (6.0-8.3) 05/01/24 23:25 Albumin 4.7 gm/dl (3.4-5.0) 05/01/24 23:25 Globulin 3.6 gm/dl (2.5-4.0) 05/01/24 23:25 Albumin/Globulin Ratio 1.3 (0.9-2) 05/01/24 23:25 Lipase 39 U/L (11-82) 05/01/24 23:25 HCG, Qual Negative (Negative) 05/01/24 23:25
[2024-05-02] MEDS: SODIUM CHLORIDE 0.9% 1,000 ML IV ONE (01:59)
[2024-05-02] MEDS ORDERED: LORazepam 0.5 MG TAB PO PRN (02:03)
[2024-05-02] MEDS ORDERED: GLUCOSE 40% GEL 15 GM TUBE PO PRN (02:03)
[2024-05-02] MEDS ORDERED: MoRPHine SULFATE 4 MG/ML 1 ML CARP\\VIAL IV PRN (02:03)
[2024-05-02] MEDS ORDERED: GLUCAGON FOR INJ 1 MG VIAL SQ PRN (02:03)
[2024-05-02] MEDS ORDERED: GLUCOSE 10 TAB/TUBE PO PRN (02:03)
[2024-05-02] MEDS ORDERED: CARBOHYDRATES FOR HYPOGLYCEMIA PO PRN (02:03)
[2024-05-02] MEDS ORDERED: DEXTROSE 50% 50 ML SYRINGE IV PRN (02:03)
[2024-05-02 02:22] LABS: Appearance Urine Turbid (Clear); Bacteria Urine Automated 4+ (None Seen); Bilirubin Urine 2+ (Negative); Blood Urine Negative (Negative); Calcium Oxalate Crystals Urine Present (None Prsent); Cast Urine Automated >20 /lpf (0-2); Color Urine Dark Yellow; Glucose Urine UA Negative (Negative); Granular Casts Urine Present /lpf (None Prsent); Ketones Urine 1+ (Negative); Leukocyte Esterase Urine 1+ (Negative); Mucus Urine Present (None Prsent); Nitrite Urine Negative (Negative); Protein Urine 4+ (Negative); Specific Gravity Urine 1.031 (1.000-1.030); Urobilinogen Urine Negative (Negative); WBC Urine Automated 21-50 /hpf (0-5)
[2024-05-02] MEDS: OPTIRAY 320 100ml IV ONE (02:25)
[2024-05-02] MEDS: oxyCODONE HCL IR 5 MG TAB (IMMEDIATE RELEASE) PO PRN (02:45)
[2024-05-02] MEDS: INSULIN ASPART PER UNIT CHARGE SC SCH (03:38)
[2024-05-02] MEDS: cefTRIAXone SODIUM 2,000 MG/50 ML BAG IV SCH (03:56)
[2024-05-02 04:20] LABS: Adenovirus PCR Not Detected (NotDetected); Bordetella parapertussis PCR Not Detected (NotDetected); Bordetella pertussis PCR Not Detected (NotDetected); Chlamydia pneumoniae PCR Not Detected (NotDetected); Coronavirus 229E PCR Not Detected (NotDetected); Coronavirus CoV-2 (COVID19)PCR Not Detected (NotDetected); Coronavirus HKU1 PCR Not Detected (NotDetected); Coronavirus NL63 PCR Not Detected (NotDetected); Coronavirus OC43PCR Not Detected (NotDetected); Human Metapneumovirus PCR Not Detected (NotDetected); Influenza A PCR Not Detected (NotDetected); Influenza B PCR Not Detected (NotDetected); Mycoplasma pneumoniae PCR Not Detected (NotDetected); Parainfluenza Virus 1 PCR Not Detected (NotDetected); Parainfluenza Virus 2 PCR Not Detected (NotDetected); Parainfluenza Virus 3 PCR Not Detected (NotDetected); Parainfluenza Virus 4 PCR Not Detected (NotDetected); Respiratory Syncytial VirusPCR Not Detected (NotDetected); Rhinovirus/Enterovirus PCR Not Detected (NotDetected)
[2024-05-02 04:26] LABS: Basophils # (auto) 0.01 K/uL (0.00-0.20); Basophils % (auto) 0.2 %; Eosinophils # (auto) 0.01 K/uL (0.00-0.50); Eosinophils % (auto) 0.2 %; Hematocrit (blood only) 34.4 % (37.0-47.0); Hemoglobin 11.7 g/dl (12.0-16.0); Immature Granulocytes # (auto) 0.02 K/uL (0.01-0.20); Immature Granulocytes % (auto) 0.3 %; Lymphocytes # (auto) 1.33 K/uL (1.20-3.40); Lymphocytes % (auto) 20.2 %; Mean Corpuscular Hemoglobin 30.5 pg (25.0-34.0); Mean Corpuscular Volume 89.8 fL (80.0-100.0); Mean Platelet Volume 9.7 fL (9.4-12.4); Monocytes # (auto) 0.28 K/uL (0.11-0.59); Monocytes % (auto) 4.2 %; Neutrophils # (auto) 4.94 K/uL (1.40-6.50); Neutrophils % (auto) 74.9 %; Platelet Count 160 K/uL (130-400); RDW Coefficient of Variation 12.3 % (11.5-14.5); RDW Standard Deviation 40.3 fL (36.4-46.3); Red Blood Count 3.83 M/uL (4.20-5.40); White Blood Count 6.59 K/ul (4.8-10.8)
[2024-05-02 04:40] LABS: BUN Creatinine Ratio 17.4 (10-20); Calcium 8.2 mg/dl (8.6-10.3); Creatinine Clr Calc Pharmacy 96.9 ml/min; Est GFR (African American) 122.7 ml/min; Est GFR (Non-African American) 105.9 ml/min; Potassium 4.4 mmol/L (3.5-5.1)
[2024-05-02] MEDS: PROMETHAZINE 12.5 MG/50.5 ML BAG IV PRN (05:20)
[2024-05-02] MEDS: ACETAMINOPHEN 500 MG TAB PO PRN (05:21)
[2024-05-02] MEDS: LEVOTHYROXINE SODIUM 50 MCG TABLET PO SCH (06:22)
[2024-05-02 07:14] LABS: Hematocrit (blood only) 34.5 % (37.0-47.0); Hemoglobin 11.7 g/dl (12.0-16.0)
--- NOTE | 2024-05-02 07:52 | XRay Report ---
XR chest 1V portable HISTORY: Generalized abdominal pain. COMPARISON: Chest 03/27/2024. FINDINGS: The lungs are clear. Cardiac silhouette is normal in size. No pleural effusions. No pneumot horax. IMPRESSION: No acute process. ACT 112: Negative or not required by law. Electronically signed by: Jono Hammonds M.D. 05/02/2024 7:51 AM
[2024-05-02] MEDS: METOPROLOL SUCC 25MG EXT REL TAB PO SCH (08:16)
[2024-05-02] MEDS: OXYBUTYNIN CHLORIDE XL 5 MG TABCR PO SCH (08:17)
[2024-05-02] MEDS: ROSUVASTATIN CALCIUM 10 MG TAB PO SCH (08:18)
[2024-05-02] MEDS: VENLAFAXINE HCL XR 37.5 MG CAPXR PO SCH (08:18)
[2024-05-02] MEDS: PANTOprazole 40 MG in SYRINGE 0 ML IV SCH (08:18)
--- NOTE | 2024-05-02 09:40 | Hospitalist Progress Note ---
Date of Service May 02, 2024 Assessment & Plan (1) UGIB (upper gastrointestinal bleed): Plan Pt is a 44yoF with Medical history significant for hypertension, hyperlipidemia, DM2 on oral medications, hypothyroidism, IBS, NAFLD, PCOS, anxiety/mood disorder, past tobacco abuse presenting with recurrent episodes of hematemesis at home. UGIB Differentials include esophagitis, gastritis Some degree of hemodynamic instability given low BP documented at the ER IV PPI Hold aspirin for now GI consult with recurrent GI bleed/significant H&H drop IVF Follow H&H, transfuse PRBC if hemoglobin less than 7 and or for symptomatic anemia Complicated UTI no overt sepsis for now Urine Cx, Ceftriaxone Diarrheal illness rule out infectious cause CT abdomen pelvis RE abdominal pain, GI bleed Stool workup hypertension borderline BP at the ER Hyperkalemia hypomagnesemia secondary to GI illness replete as needed hyperlipidemia on statin Rx DM2 on oral medications well-controlled as of recent hemoglobin A1c of 5.01 March 2024 hypothyroidism euthyroid as of recent outpatient TSH DVT prophylaxis. SCDs Full code Admission and Anticipated Discharge Date Admission Date: May 02, 2024 Ayo Meadows was seen multiple times during the day. In AM, sitting in bed. Family at bedside. Wants to eat. Questions about her blood count and need for transfusion. Review of Systems Review of Systems: All systems reviewed & are unremarkable except as noted in Subjective Physical Exam Physical Exam: General: Alert, oriented. No acute distress Skin: No noted rashes or bruises Psych: Appropriate mood and affect Neuro: No gross deficits HEENT: NC/AT CV: RRR Resp: Breath sounds clear bilaterally, no increased effort of breathing. Abdomen:Soft, nontender, nondistended. Extremities: No edema in lower extremities bilaterally. Results & Data Results & Data Vital Signs (Past 12 Hours) Vital Signs Temp Pulse Pulse Resp BP BP Pulse Ox 05/02/24 07:22 99 H 05/02/24 07:17 36.7 C 101 H 18 96/62 L 96 05/02/24 04:57 36.6 C 96 H 17 107/73 96 05/02/24 04:51 107 H 05/02/24 04:11 103 H 24 112/72 94 05/02/24 03:00 101 H 18 102/63 94 05/02/24 02:00 101 H 18 136/69 99 05/02/24 01:30 102 H 20 99/65 L 98 05/02/24 00:30 100 H 16 117/82 100 05/02/24 00:09 99 H 18 114/70 99 05/01/24 23:26 110 H 05/01/24 22:57 36.6 C 112 H 20 130/87 92 O2 Del Method 05/02/24 07:22 05/02/24 07:17 Room Air 05/02/24 04:57 Room Air 05/02/24 04:51 05/02/24 04:11 05/02/24 03:00 05/02/24 02:00 05/02/24 01:30 05/02/24 00:30 05/02/24 00:09 05/01/24 23:26 05/01/24 22:57 Room Air Diagnostic Findings Chest X-Ray 05/01/24 23:21 XR chest 1V portable HISTORY: Generalized abdominal pain. COMPARISON: Chest 03/27/2024. FINDINGS: The lungs are clear. Cardiac silhouette is normal in size. No pleural effusions. No pneumothorax. IMPRESSION: No acute process. ACT 112: Negative or not required by law. Electronically signed by: Jono Hammonds M.D. 05/02/2024 7:51 AM Abdomen/Pelvis CT 05/02/24 01:[address] WITH IV CONTRAST CT DOSE: 1380.26 mGy.cm HISTORY: Mid abd pain ugib TECHNIQUE: Multiaxial CT images of the abdomen and pelvis were performed following the use of intravenous contrast. A dose lowering technique was utilized adhering to the principles of ALARA. COMPARISON STUDY: Abdomen and pelvis CT 07/19/2023. FINDINGS: The lung bases are clear. No pneumoperitoneum. No pneumatosis. No acute fractures identified. Prior mesh repair of an umbilical hernia again noted. No hepatic or splenic masses. Subtle nodular contour to the liver consistent with mild cirrhosis. Scattered punctate calcifications within the spleen. The spleen is top normal in size. The main portal vein is patent. Prior cholecystectomy. A few prominent periportal lymph nodes remain stable. The pancreas, adrenal glands, kidneys are unremarkable. No hydronephrosis. Mild calcified plaque within the normal caliber abdominal aorta. No retroperitoneal or pelvic lymphadenopathy. No pelvic free fluid. The bladder, uterus, bilateral adnexa are unremarkable. No bowel wall thickening or obstruction. Normal appendix. Stable subtle hypodense focus within the right hepatic lobe adjacent to gallbladder fossa on image 152. This measures 17 mm. The vessels appear to traverse through this area of hypodensity. Therefore, this favors focal fat. IMPRESSION: 1. No bowel wall thickening or obstruction. 2. Normal appendix. 3. No hydronephrosis. 4. Subtle nodular contour to the liver consistent with early cirrhosis. 5. Prior cholecystectomy. ACT 112: Negative or not required by law. Electronically signed by: Jono Hammonds M.D. 05/02/2024 10:13 AM
--- NOTE | 2024-05-02 10:15 | CT Scan Report ---
ABDOMEN AND PELVIS CT WITH IV CONTRAST CT DOSE: 1380.26 mGy.cm HISTORY: Mid abd pain ugib TECHNIQUE: Multiaxial CT images of the abdomen and pelvis were performed following the use of intrave nous contrast. A dose lowering technique was utilized adhering to the principles of ALARA. COMPARISON STUDY: Abdomen and pelvis CT 07/19/2023. FINDINGS: The lung bases are clear. No pneumoperitoneum. No pneumatosis. No acute fractures identifie d. Prior mesh repair of an umbilical hernia again noted. No hepatic or splenic masses. Subtle nodular contour to the liver consistent with mild cirrhosis. Scattered punctate calcifications within the sp arlene. The spleen is top normal in size. The main portal vein is patent. Prior cholecystectomy. A few prominent periportal lymph nodes remain stable. The pancreas, adrenal glands, kidneys are unremarkabl e. No hydronephrosis. Mild calcified plaque within the normal caliber abdominal aorta. No retroperito kiel or pelvic lymphadenopathy. No pelvic free fluid. The bladder, uterus, bilateral adnexa are unrem arkable. No bowel wall thickening or obstruction. Normal appendix. Stable subtle hypodense focus with in the right hepatic lobe adjacent to gallbladder fossa on image 152. This measures 17 mm. The vessel s appear to traverse through this area of hypodensity. Therefore, this favors focal fat. IMPRESSION: 1. No bowel wall thickening or obstruction. 2. Normal appendix. 3. No hydronephrosis. 4. Subtle nodular contour to the liver consistent with early cirrhosis. 5. Prior cholecystectomy. ACT 112: Negative or not required by law. Electronically signed by: Jono Hammonds M.D. 05/02/2024 10:13 AM
--- NOTE | 2024-05-02 16:41 | Gastrointestinal Consultation ---
Date of Consultation May 02, 2024 Assessment & Plan (1) UGIB (upper gastrointestinal bleed): Plan Patient is a 44 year old female with episodes of emesis followed by hematemesis. no further episodes since admission. she is tolerating oral intake. suspect at this time that she had a chelly olea tear. Patient was seen with Dr. Coyle who advised on plan. -Will recommend outpatient EGD to further evaluate. - follow hgb/hct. transfuse as needed. - continue with protonix 40mg bid. Supervising Physician Co-Signing Physician Notes I examined the patient and reviewed patient's chart , laboratory data and imaging studies. I agree with with assessment and plan of care as suggested by advanced practice provider. Clinical presentation is suggestive of Chelly-Olea tear. Symptoms have resolved. Advance diet. Follow-up EGD as an outpatient within the next 2 weeks. History of Present Illness Reason for Consultation: GIB Requesting Physician: Charisse Tovar MD Attending Physician: Charisse Tovar MD History of Present Illness Patient is a 44 year old female who presented to the ED yesterday with several episodes of hematemesis. She tells me that at first she was just having regular emesis, but at one point there started to be blood in the emesis. Since she has been admitted, she tells me she has had no further symptoms since given an antiemetic. she has been able to eat and drink without issues. her hgb did drop from 14.9 to 11.7. she reports feeling much better. rest of GI review of symptoms are unremarkable. she has never had an EGD. Allergies Allergy/AdvReac Type Severity Reaction Status Date / Time No Known Allergies Allergy Verified 03/27/24 14:23 Home Medications Medication Instructions Recorded Confirmed Type levothyroxine 50 mcg tablet 50 mcg PO DAILY@0600 03/27/24 05/02/24 History metformin 500 mg tablet,extended 500 mg PO DAILY 03/27/24 05/02/24 History release 24 hr norgestimate 0.25 mg-ethinyl 1 tab PO DAILY 03/27/24 05/02/24 History estradiol 35 mcg tablet (Sprintec (28)) oxybutynin chloride 10 mg 10 mg PO DAILY 03/27/24 05/02/24 History tablet,extended release 24 hr semaglutide 2 mg/dose (8 mg/3 mL) 2 mg subcut WK 03/27/24 05/02/24 History subcutaneous pen injector (Ozempic) venlafaxine 37.5 mg 37.5 mg PO DAILY 03/27/24 05/02/24 History capsule,extended release 24 hr aspirin 81 mg tablet,delayed 81 mg PO DAILY #30 tabs 03/28/24 05/02/24 Rx release metoprolol succinate 25 mg 25 mg PO DAILY #30 tabs 03/28/24 05/02/24 Rx tablet,extended release 24 hr rosuvastatin 10 mg tablet 10 mg PO DAILY #30 tabs 03/28/24 05/02/24 Rx Patient History Medical History Osteoarthritis PCOS (polycystic ovarian syndrome) Fatty liver IBS (irritable bowel syndrome) History of migraine Surgical History History of incisional hernia repair (10/25/20) Laparoscopic incisional hernia repair. Dr. Mejia 10/25/20 History of colonoscopy History of surgery tumor excision face 1982 History of laparoscopic cholecystectomy History of surgical removal of ganglion cyst [place] teeth removed (06/12/13) Family History Mother Diabetes Heart disease Breast cancer Lung cancer as a result Cervical cancer Myocardial infarction Father Diabetes Heart disease Grandmother (Paternal) Breast cancer Aunt Breast cancer great mat aunt Uterine cancer great maternal aunt Aunt Ovarian cancer Other Family history non-contributory No family history of adverse response to anesthesia Denies family history of Prostate cancer Colorectal cancer Social History Smoking Status: Unknown if ever smoked Tobacco Type: Cigarettes Second Hand Exposure: Yes (as a child); Do You Dip or Chew Tobacco: No; Hx Substance Use: No Preferred Language: Khmer Communication Ability: Effective Visual Impairment: No Limitations Bookbinder Chief Required: No Beliefs That Will Affect Care: None marital status: Current Living Situation: Spouse Current Living Situation Comment: lives at home with current occupational status: employed 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 How many Children do You have: 2 Other Information That Helps Us Care for You: No Feels Safe at Home: Yes Safety Concerns: Feels Safe At This Time Assistive Devices: Glasses Review of Systems Review of Systems: All systems reviewed & are unremarkable except as noted in HPI & below Physical Exam Constitutional: WD/WN, vitals as above Respiratory: normal respiratory effort, lungs clear to auscultation Cardiovascular: Rate/Rhythm: regular rate and regular rhythm Gastrointestinal (Abdomen): normal bowel sounds, soft, nontender, no hepatosplenomegaly Psychiatric: Orientation: alert and oriented x 3 Affect: euthymic affect Results & Data Vital Signs (Past 12 Hours) Vital Signs Temp Pulse Pulse Resp BP Pulse Ox O2 Del Method 05/02/24 15:21 91 H 05/02/24 15:11 98.2 F 88 18 117/77 97 Room Air 05/02/24 12:01 97.9 F 85 18 111/73 97 Room Air 05/02/24 07:22 99 H 05/02/24 07:17 98.1 F 101 H 18 96/62 L 96 Room Air 05/02/24 04:57 97.9 F 96 H 17 107/73 96 Room Air 05/02/24 04:51 107 H Coding Level of Care Code 08321 IN/OBS CONSULT LVL 4,60M Diagnoses UGIB (upper gastrointestinal bleed) K92.2
[2024-05-03 04:28] VITALS: TEMP 98.1
[2024-05-03 07:13] LABS: Basophils # (auto) 0.01 K/uL (0.00-0.20); Basophils % (auto) 0.2 %; Eosinophils # (auto) 0.05 K/uL (0.00-0.50); Eosinophils % (auto) 0.9 %; Hemoglobin 11.5 g/dl (12.0-16.0); Immature Granulocytes # (auto) 0.01 K/uL (0.01-0.20); Immature Granulocytes % (auto) 0.2 %; Lymphocytes # (auto) 2.83 K/uL (1.20-3.40); Lymphocytes % (auto) 49.2 %; Mean Corpuscular Hemoglobin 30.7 pg (25.0-34.0); Mean Corpuscular Hgb Conc 33.8 g/dL (32.0-36.0); Mean Corpuscular Volume 90.9 fL (80.0-100.0); Mean Platelet Volume 9.6 fL (9.4-12.4); Monocytes # (auto) 0.31 K/uL (0.11-0.59); Monocytes % (auto) 5.4 %; Neutrophils # (auto) 2.54 K/uL (1.40-6.50); Neutrophils % (auto) 44.1 %; Platelet Count 161 K/uL (130-400); RDW Coefficient of Variation 12.3 % (11.5-14.5); Red Blood Count 3.74 M/uL (4.20-5.40); White Blood Count 5.75 K/ul (4.8-10.8)
[2024-05-03] MEDS ORDERED: INSULIN ASPART PER UNIT CHARGE SC SCH (07:30)
[2024-05-03 07:38] LABS: BUN Creatinine Ratio 10.4 (10-20); Calcium 8.3 mg/dl (8.6-10.3); Creatinine Clr Calc Pharmacy 88.4 ml/min; Est GFR (African American) 108.8 ml/min; Est GFR (Non-African American) 93.9 ml/min; Potassium 4.2 mmol/L (3.5-5.1)
[2024-05-03 08:01] VITALS: BP 124/77; PULSE 88; RESP 16; O2SAT 97
--- NOTE | 2024-05-03 08:25 | Discharge Summary ---
Discharge Summary Date of Service May 03, 2024 Principal Dx & Hospital Course #1 = Principal Diagnosis (1) UGIB (upper gastrointestinal bleed): Plan Pt is a 44yoF with Medical history significant for hypertension, hyperlipidemia, DM2 on oral medications, hypothyroidism, IBS, NAFLD, PCOS, anxiety/mood disorder, past tobacco abuse presenting with recurrent episodes of hematemesis at home. UGIB Likely Chelly Casiano tear Differentials include esophagitis, gastritis, chelly casiano tear Some degree of hemodynamic instability given low BP documented at the ER IV PPI Held aspirin initially GI consult with recurrent GI bleed/significant H&H drop. Recommended/stated the following: "Clinical presentation is suggestive of Chelly-Casiano tear. Symptoms have resolved. Advance diet. Follow-up EGD as an outpatient within the next 2 weeks." hemoglobin dropped from 14 to 11 initially. Remained in 11 range on 2 further checks. Please ensure GI followup for recommended EGD. PCP f/u for continued H/H monitoring. Possible early cirrhosis Noted on CT abd/pelvis Pt denies chronic alcohol use States has a hx of fatty liver Close GI and PCP follow up after discharge Complicated UTI no overt sepsis for now UA suggestive of infection Urine cx with no significant growth at time of discharge. Pt notes Hx of recurrent UTIs, last urine Cx grew e coli resistant to ampicillin, gentamicin and Bactrim. Also grew >1000, 000U of corynebacterium. Treated with IV Rocephin for 2 days, discharged with po cefdinir for 5 more days. PCP followup for final urine cx results. Diarrheal illness rule out infectious cause CT abdomen pelvis RE abdominal pain with no acute cause Stool Cx not obtained as pt has not had BM PCP follow up hypertension borderline BP at the ER Normal on discharge Hyperkalemia hypomagnesemia secondary to GI illness replete as needed hyperlipidemia on statin Rx, continue DM2 on oral medications well-controlled as of recent hemoglobin A1c of 5.01 March 2024 hypothyroidism euthyroid as of recent outpatient TSH Notes For Next Care Provider Please ensure follow up with GI for needed EGD in 2 weeks Please follow up on noted CT findings of possible early cirrhosis Please follow up on urine culture results Medication Changes From Visit cefdinir 300mg BID x 5 more days prn zofran for nausea Admission HPI Per Admitting Provider History obtained from patient and records. Medical history significant for hypertension, hyperlipidemia, DM2 on oral medications, hypothyroidism, IBS, NAFLD, PCOS, anxiety/mood disorder, past tobacco abuse. Recent confinement last month for chest pain. No ischemia on stress echo. Patient discharged on aspirin, beta-abiel, and statin medications. Patient not feeling well yesterday. Achy epigastric discomfort later followed by dry heaving and hematemesis. Transient diarrhea. Not sure about sick contacts. Low-grade fever. Denies chest pain, SOB. Denies OTC NSAID intake. IV Protonix administered at the ER. Lowest SBP of 90s documented at the ER. 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 No acute distress Skin: No noted rashes or bruises Psych: Appropriate mood and affect Neuro: No gross deficits HEENT: NC/AT CV: RRR Resp: Breath sounds clear bilaterally, no increased effort of breathing. Abdomen:Soft, nontender, nondistended. Extremities: No edema in lower extremities bilaterally. Updated Medication List Medication Instructions Recorded Confirmed Type levothyroxine 50 mcg tablet 50 mcg PO DAILY@0600 03/27/24 05/02/24 History metformin 500 mg tablet,extended 500 mg PO DAILY 03/27/24 05/02/24 History release 24 hr norgestimate 0.25 mg-ethinyl 1 tab PO DAILY 03/27/24 05/02/24 History estradiol 35 mcg tablet (Sprintec (28)) oxybutynin chloride 10 mg 10 mg PO DAILY 03/27/24 05/02/24 History tablet,extended release 24 hr semaglutide 2 mg/dose (8 mg/3 mL) 2 mg subcut WK 03/27/24 05/02/24 History subcutaneous pen injector (Ozempic) venlafaxine 37.5 mg 37.5 mg PO DAILY 03/27/24 05/02/24 History capsule,extended release 24 hr aspirin 81 mg tablet,delayed 81 mg PO DAILY #30 tabs 03/28/24 05/02/24 Rx release metoprolol succinate 25 mg 25 mg PO DAILY #30 tabs 03/28/24 05/02/24 Rx tablet,extended release 24 hr rosuvastatin 10 mg tablet 10 mg PO DAILY #30 tabs 03/28/24 05/02/24 Rx cefdinir 300 mg capsule 300 mg PO BID #10 caps 05/03/24 Rx ondansetron 4 mg disintegrating 4 mg PO Q8H PRN nausea and 05/03/24 Rx tablet vomiting 5 days #30 tabs Hospital Stay Data Consultations 05/02/24 01:09 ED Decision to Admit Stat 05/02/24 15:31 Consult Gastroenterology Routine Diagnostic Imagining Performed 05/02/24 01:58 CT Abd and Pelvis [CT abd pelvis IV con only] Stat Chest X-Ray 05/01/24 23:21 XR chest 1V portable HISTORY: Generalized abdominal pain. COMPARISON: Chest 03/27/2024. FINDINGS: The lungs are clear. Cardiac silhouette is normal in size. No pleural effusions. No pneumothorax. IMPRESSION: No acute process. ACT 112: Negative or not required by law. Electronically signed by: Jono Hammonds M.D. 05/02/2024 7:51 AM Abdomen/Pelvis CT 05/02/24 01:[address] WITH IV CONTRAST CT DOSE: 1380.26 mGy.cm HISTORY: Mid abd pain ugib TECHNIQUE: Multiaxial CT images of the abdomen and pelvis were performed following the use of intravenous contrast. A dose lowering technique was utilized adhering to the principles of ALARA. COMPARISON STUDY: Abdomen and pelvis CT 07/19/2023. FINDINGS: The lung bases are clear. No pneumoperitoneum. No pneumatosis. No acute fractures identified. Prior mesh repair of an umbilical hernia again noted. No hepatic or splenic masses. Subtle nodular contour to the liver consistent with mild cirrhosis. Scattered punctate calcifications within the spleen. The spleen is top normal in size. The main portal vein is patent. Prior cholecystectomy. A few prominent periportal lymph nodes remain stable. The pancreas, adrenal glands, kidneys are unremarkable. No hydronephrosis. Mild calcified plaque within the normal caliber abdominal aorta. No retroperitoneal or pelvic lymphadenopathy. No pelvic free fluid. The bladder, uterus, bilateral adnexa are unremarkable. No bowel wall thickening or obstruction. Normal appendix. Stable subtle hypodense focus within the right hepatic lobe adjacent to gallbladder fossa on image 152. This measures 17 mm. The vessels appear to traverse through this area of hypodensity. Therefore, this favors focal fat. IMPRESSION: 1. No bowel wall thickening or obstruction. 2. Normal appendix. 3. No hydronephrosis. 4. Subtle nodular contour to the liver consistent with early cirrhosis. 5. Prior cholecystectomy. ACT 112: Negative or not required by law. Electronically signed by: Jono Hammonds M.D. 05/02/2024 10:13 AM Pending Results Patient Have Any Pending Studies at Discharge: No Discharge Instructions Given to Patient (Per Discharging Provider) Dori, You were admitted with concerning bleeding while vomiting. You were seen by the crop and soil scientist who believes that your symptoms have resolved and they recommend an EGD in 2 weeks to help. Your hemoglobin has remained stable on the last 3 checks. We are also treating you for a urinary tract infection. We are discharging you h ome with 5 more days of antibiotics. Please take as prescribed. Please keep close follow up with your primary care provider after discharge, especially for your culture results. Please do not hesitate to come back to the emergency room if your symptoms worsen or return. It was a pleasure taking care of you while you were here. Total Time Total Time Spent Total Time Spent (In Minutes): 75
== END 2024-05-03 09:00 | disposition home or self-care (01) | DRG 369 ==
LOC: ED 22:55 → 2N 05-02 02:01